=== PATIENT | male | born 1950 | race African-American/Black ===

== ENCOUNTER 2017-07-02 03:46 | Inpatient (IN) | payer MEDICARE, MEDICAID ==
[2017-07-02] VITALS (8 sets, daily range): BP systolic 169–198; BP diastolic 82–102; PULSE 81–117; RESP 16–20; TEMP 98.4–99.3; O2SAT 96–98
[~2017-07-02] VITALS: Ht 188 cm; Wt 112.7 kg
[~2017-07-02 03:46] MED LIST: FOLI1TAB6 PO; METO-309 PO; NIFE30TA8 PO; THERM PO; THIA100 PO; WALKER WHEELS/F1 MIS
[2017-07-02] MEDS ORDERED: LORazepam 2 MG/ML VIAL IVS ONE (04:00)
[2017-07-02] MEDS ORDERED: SODIUM CHLORIDE 0.9% FLUSH 10 ML FLUSH IVF PRN (04:00)
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
[2017-07-02 04:18] LABS: AUTOMATED NEUTROPHIL # 8.3 TH/MM3 (1.8-7.7); BASOPHIL # 0.1 TH/MM3 (0-0.2); BASOPHIL % 1.1 % (0.0-2.0); EOSINOPHIL # 0.7 TH/MM3 (0-0.4); HEMATOCRIT 36.7 % (39.0-51.0); HEMOGLOBIN 12.5 GM/DL (13.0-17.0); LYMPH % 27.3 % (9.0-44.0); LYMPHOCYTE # 3.6 TH/MM3 (1.0-4.8); MEAN CELL VOLUME 85.3 FL (80.0-100.0); MONO % 2.7 % (0.0-8.0); MONOCYTE # 0.4 TH/MM3 (0-0.9); NEUT % 63.9 % (16.0-70.0); PLATELET COUNT 308 TH/MM3 (150-450); RED CELL DISTRIBUTION WIDTH 14.7 % (11.6-17.2)
[2017-07-02 04:35] LABS: ALBUMIN 3.2 GM/DL (3.4-5.0); ALT (GPT) 36 U/L (12-78); AST (GOT) 33 U/L (15-37); BICARBONATE 25.6 MEQ/L (21.0-32.0); BLOOD UREA NITROGEN 18 MG/DL (7-18); CALCIUM 8.7 MG/DL (8.5-10.1); CHLORIDE 101 MEQ/L (98-107); CREATININE 1.69 MG/DL (0.60-1.30); GLOMERULAR FILTRATION RATE 49 ML/MIN (>89); GLUCOSE,RANDOM 87 MG/DL (74-106); SODIUM (NA) 135 MEQ/L (136-145)
[2017-07-02 04:37] LABS: ALKALINE PHOSPHATASE 99 U/L (45-117); TOTAL BILIRUBIN ADULT 0.4 MG/DL (0.2-1.0); TOTAL PROTEIN 8.4 GM/DL (6.4-8.2)
--- NOTE | 2017-07-02 05:04 | RADRPT ---
EXAM DATE/TIME: 07/02/2017 04:34 [facility] COMPARISON: No previous studies available for comparison. INDICATIONS : Altered mental status. RADIATION DOSE: 45.92 CTDIvol (mGy) MEDICAL HISTORY : Hypertension. Chronic obstructive pulmonary disease. Cardiovascular disease SURGICAL HISTORY : Hernia repair ENCOUNTER: Initial ACUITY: 1 day PAIN SCALE: Non-responsive LOCATION: cranial TECHNIQUE: Multiple contiguous axial images were obtained of the head. Using automated exposure control and adj ustment of the mA and/or kV according to patient size, radiation dose was kept as low as reasonably a chievable to obtain optimal diagnostic quality images. DICOM format image data is available electro nically for review and comparison. FINDINGS: CEREBRUM: The ventricles are normal for age. No evidence of midline shift, mass lesion, hemorrhage or acute in farction. No extra-axial fluid collections are seen. POSTERIOR FOSSA: The cerebellum and brainstem are intact. The 4th ventricle is midline. The cerebellopontine angle i s unremarkable. EXTRACRANIAL: The visualized portion of the orbits is intact. SKULL: The calvaria is intact. No evidence of skull fracture. CONCLUSION: 1. No acute intracranial abnormalities. Natan Mitchell MD on July 02, 2017 at 5:00 Board Certified Radiologist. This report was verified electronically.
[2017-07-02] MEDS ORDERED: LORazepam 2 MG/ML VIAL IV PUSH PRN ×3 (05:15→17:15)
[2017-07-02] MEDS ORDERED: SODIUM CHLORIDE 0.9% FLUSH 10 ML FLUSH IV FLUSH PRN (05:15)
[2017-07-02] MEDS ORDERED: ONDANSETRON HCL 4 MG/2 ML VIAL IVP PRN (05:15)
[2017-07-02] MEDS ORDERED: MAGNESIUM HYDROXIDE SUSP 30 ML CUP PO PRN (05:15)
[2017-07-02] MEDS ORDERED: ACETAMINOPHEN/HYDROcodone 325 MG/5 MG TAB PO PRN (05:15)
[2017-07-02] MEDS ORDERED: LACTULOSE SYRUP 20 GM/30 ML CUP PO PRN (05:15)
[2017-07-02] MEDS ORDERED: SENNOSIDES 8.6 MG TAB PO PRN (05:15)
[2017-07-02] MEDS ORDERED: BISACODYL 10 MG SUPP RECTAL PRN (05:15)
[2017-07-02] MEDS ORDERED: ACETAMINOPHEN 325 MG TAB PO PRN (05:15)
[2017-07-02] MEDS ORDERED: THIAMINE HCL 100 MG TAB PO SCH (09:00)
[2017-07-02] MEDS ORDERED: MULTIVITAMINS/MINERALS THERAPEUTIC TAB PO SCH (09:00)
[2017-07-02] MEDS ORDERED: FOLIC ACID 1 MG TAB PO SCH (09:00)
--- NOTE | 2017-07-02 09:06 | MB ---
cc: ENRIKE CHRISTIAN M.D. DATE OF CONSULTATION 07/02/2017 HISTORY OF PRESENT ILLNESS This is a 66-year-old right-handed man with hypertension and hypercholesterolemia. He tells me fell on Ana. He has not been seen by neurology here, in fact he did come in on Ana with a past medical history of hypertension, COPD, alcohol abuse, tobacco abuse, cocaine abuse. He was found at home, almost passed out twice, poor historian. He has a history of alcohol and crack, although he tells me he may have stopped drinking around . CT of the head was negative. He does not take an aspirin a day. Last evening he had some twitching in the left arm that would not stop. The left arm was constantly twitching according to the ER doctor. He uses a walker. MEDICATIONS 1. Multivitamins. 2. Folic acid. 3. Nifedipine. 4. Lopressor. ALLERGIES No known drug allergies. REVIEW OF SYSTEMS He denied any chest pain, palpitations or headache. He denied any history of diabetes, ME, CABG, stent, angioplasty, atrial fibrillation, Coumadin, renal, hepatic or pulmonary disease, thyroid disease, lupus, ulcer, cancer, seizure, stroke. SOCIAL HISTORY He is not a smoker, occasionally still has a drink, lives by himself. FAMILY HISTORY Negative for cancer, seizure or stroke. Positive for lupus in his sister. PHYSICAL EXAMINATION VITAL SIGNS: Sinus rhythm on EKG. Afebrile, 102-117, 16, 190/93. Blood pressure was as high as 196/100 on his last admission. NECK: There are no carotid bruits. HEART: Regular rhythm. I do not detect a murmur. NEUROLOGIC: The left pupil is slightly larger than the right. The left is about 3.5 mm and the right about 3 mm. He appears to have a left homonymous hemianopsia. Face is symmetric with normal sensation. Tongue is midline. There is no drift. He has normal strength in upper and lower extremities bilaterally. He has some slight ataxia in the left upper extremity. DTRs are absent throughout. Toes are downgoing on the right, equivocal to downgoing on the left. Pinprick appears to be intact throughout. Speech is fluent. He is not aphasic. He is alert and oriented x3. LABORATORY White count 13, although was 17 on Ana. Otherwise CBC is normal. Urine drug screen was negative at . It was not checked now. UA was negative at . Coags were normal. Basic metabolic profile is 1.69, was 1.59 at . GFR is 49. Sodium is 135. LFTs are normal. CPK on was 800. Albumin was normal here. B12 was normal. Folate was normal. TSH was normal on June 04, 2017. Coags were normal then. Blood gas was abnormal in 2005. He had a PO2 of 55. ECHOCARDIOGRAM Echocardiogram was normal on June 05, 2017 with a left atrial size of 3. IMAGING Carotid ultrasound done on that was negative. CAT scan of the brain done today was read as normal. Review of the films: It does look to be normal. I do not see any definite abnormality including the occipital lobes. IMPRESSION It looks like he possibly had a stroke now. He has a left homonymous hemianopsia. There was evidence of jerking of the left arm. He was given 2 mg of Ativan last night. PLAN/RECOMMENDATIONS Will check an EEG and MRI of the brain and MRA of the neck and [place]. Will put him on an aspirin for now. I also put him in for a Holter monitor. MD CHEYANNE Carpio/JOSE /8:26 AM /8:46 AM
[2017-07-02] MEDS: DOCUSATE SODIUM 50 MG/SENNA 8.6 MG TAB PO SCH ×2 (12:41→20:38)
[2017-07-02] MEDS: ASPIRIN EC 325 MG TABEC PO SCH (12:41)
[2017-07-02] MEDS: NIFEdipine 30 MG SUSTAINED RELEASE TAB PO SCH (12:42)
[2017-07-02] MEDS: METOPROLOL TARTRATE 50 MG TAB PO SCH ×2 (12:42→20:38)
[2017-07-02 14:28] LABS: CHOLESTEROL 170 MG/DL (120-200); TRIGLYCERIDES 81 MG/DL (42-150)
[2017-07-02 14:31] LABS: HDL CHOLESTEROL 54.8 MG/DL (40.0-60.0); LDL CHOLESTEROL 99 MG/DL (0-99); TROPONIN I LESS THAN 0.02 NG/ML (0.02-0.05)
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
[2017-07-02] MEDS ORDERED: LORazepam 2 MG TAB PO PRN (17:15)
[2017-07-02] MEDS ORDERED: HALOPERIDOL LACTATE 5 MG/ML AMP IM PRN (17:15)
[2017-07-02] MEDS ORDERED: LORazepam 1 MG TAB PO PRN (17:15)
[2017-07-02] MEDS ORDERED: FLUMAZENIL 0.5 MG/5 ML VIAL IV PUSH PRN (17:15)
[2017-07-02] MEDS ORDERED: ENALAPRILAT 1.25 MG/ML VIAL IV PUSH PRN (18:00)
--- NOTE | 2017-07-02 19:03 | EKG ---
Date Performed: 07/02/2017 Time Performed: 05:17:56 PTAGE: 66 years EKG: SINUS TACHYCARDIA POSSIBLE LEFT ATRIAL ENLARGEMENT Since previous tracing, no significant c hange noted ABNORMAL RHYTHM ECG PREVIOUS TRACING : 06/03/2017 16.54 DOCTOR: Kranhti Roque Interpretating Date/Time 07/02/2017 19:01:26
[2017-07-02] MEDS: SODIUM CHLORIDE 0.9% FLUSH 10 ML FLUSH IV FLUSH SCH ×2 (20:38→20:45)
[2017-07-02] MEDS: SODIUM CHLOR 0.9% 1000 ML INJ 1,000 ML IV SCH (20:40)
[2017-07-02] MEDS: ACETAMINOPHEN/HYDROcodone 325 MG/10 MG TAB PO PRN (21:54)
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
[2017-07-03] VITALS: BP 155/93; PULSE 72; RESP 20; TEMP 97.8; O2SAT 98
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
[2017-07-03 06:42] LABS: AUTOMATED NEUTROPHIL # 6.9 TH/MM3 (1.8-7.7); BASOPHIL # 0.3 TH/MM3 (0-0.2); BASOPHIL % 2.7 % (0.0-2.0); EOSINOPHIL # 0.3 TH/MM3 (0-0.4); EOSINOPHIL % 3.5 % (0.0-4.0); HEMATOCRIT 39.8 % (39.0-51.0); LYMPH % 19.3 % (9.0-44.0); LYMPHOCYTE # 1.8 TH/MM3 (1.0-4.8); MEAN CELL VOLUME 85.6 FL (80.0-100.0); MEAN CORPUSCULAR HGB CONC 32.7 % (32.0-36.0); MEAN PLATELET VOLUME 9.8 FL (7.0-11.0); MONOCYTE # 0.2 TH/MM3 (0-0.9); NEUT % 72.5 % (16.0-70.0); PLATELET COUNT 312 TH/MM3 (150-450); RED BLOOD COUNT 4.65 MIL/MM3 (4.50-5.90); RED CELL DISTRIBUTION WIDTH 13.7 % (11.6-17.2); WHITE BLOOD COUNT 9.5 TH/MM3 (4.0-11.0)
--- NOTE | 2017-07-03 06:42 | MG ---
cc: JENNIE GALICIA MD Lab No: [id number] Date: 07/02/2017 Age: 66 Sex: M Race: DATE OF 1950 HISTORY A 66-year-old with history of left arm twitching. FINDINGS 2-3 Hz delta activity occurring in a generalized fashion, 20-50 microvolts. Some overlying theta activity. Spindle activity suggestive of Stage II sleep. Asymmetric right hemispheric slowing compared to the left. Tiny sharp transients right frontal central region. Limited driving with photic stimulation. The patient has stayed awake during photic. INTERPRETATION Mild asymmetric right hemispheric slowing in sleep state. Clinical correlation. Jennie Galicia MD MG/SSB /9:02 PM /6:34 AM
[2017-07-03 06:54] LABS: CHLORIDE 99 MEQ/L (98-107); SODIUM (NA) 132 MEQ/L (136-145)
[2017-07-03 07:02] LABS: ALBUMIN 3.4 GM/DL (3.4-5.0); BLOOD UREA NITROGEN 17 MG/DL (7-18); CALCIUM 9.1 MG/DL (8.5-10.1); GLUCOSE,RANDOM 87 MG/DL (74-106)
[2017-07-03 07:05] LABS: ALT (GPT) 36 U/L (12-78); AST (GOT) 32 U/L (15-37); GLOMERULAR FILTRATION RATE 61 ML/MIN (>89)
[2017-07-03 07:06] LABS: TOTAL BILIRUBIN ADULT 0.8 MG/DL (0.2-1.0)
[2017-07-03 07:07] LABS: TOTAL PROTEIN 8.9 GM/DL (6.4-8.2)
[2017-07-03 07:08] LABS: ALKALINE PHOSPHATASE 103 U/L (45-117)
[2017-07-03 08:00] VITALS: BP 181/87; PULSE 79; PULSE 81; RESP 20; TEMP 97.4; O2SAT 95
[2017-07-03] MEDS: METOPROLOL TARTRATE 50 MG TAB PO SCH ×2 (08:38→21:37)
[2017-07-03] MEDS: ASPIRIN EC 325 MG TABEC PO SCH (08:38)
[2017-07-03] MEDS: DOCUSATE SODIUM 50 MG/SENNA 8.6 MG TAB PO SCH ×2 (08:38→21:37)
[2017-07-03] MEDS: FOLIC ACID 1 MG TAB PO SCH (08:38)
[2017-07-03] MEDS: THIAMINE HCL 100 MG TAB PO SCH (08:39)
[2017-07-03] MEDS: NIFEdipine 30 MG SUSTAINED RELEASE TAB PO SCH (08:39)
[2017-07-03] MEDS: MULTIVITAMINS/MINERALS THERAPEUTIC TAB PO SCH (08:39)
[2017-07-03] MEDS: SODIUM CHLORIDE 0.9% FLUSH 10 ML FLUSH IV FLUSH SCH ×2 (08:41→21:38)
[2017-07-03] MEDS ORDERED: PNEUMOCOCCAL POLYVALENT INJ 25 MCG/0.5 ML SYR IM ONE (10:00)
[2017-07-03] MEDS ORDERED: INFLUENZA VIRUS VACCINE (QUADRIVALENT) 0.5 ML SYR IM ONE (10:00)
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
[2017-07-03] MEDS: SODIUM CHLOR 0.9% 1000 ML INJ 1,000 ML IV SCH ×2 (11:12→11:38)
[2017-07-03 12:00] VITALS: BP 182/85; PULSE 71; RESP 20; TEMP 97.7; O2SAT 95
--- NOTE | 2017-07-03 13:36 | HHI.PR ---
Subjective Remarks Patient is seen and evaluate for acute neurological symptoms. He appears to have a right parietal occipital stroke. His blood pressure is quite elevated as well and is 181/87. He has significant deficits Objective Vitals Vital Signs Date Time Temp Pulse Resp B/P (MAP) Pulse Ox O2 Delivery O2 Flow Rate FiO2 07/03/17 08:00 97.4 79 20 181/87 (118) 95 Automatic Cuff 07/03/17 00:00 97.8 72 20 155/93 (113) 98 07/02/17 23:00 81 07/02/17 20:00 98.9 88 20 190/98 (128) 97 07/02/17 16:00 99.3 87 20 189/93 (125) 96 I/O 07/02/17 07/02/17 07/02/17 07/03/17 07/03/17 07/03/17 07:00 15:00 23:00 07:00 15:00 23:00 Intake Total 120 ml Output Total 550 ml 450 ml Balance -430 ml -450 ml Intake Oral 120 ml Output Urine Total 550 ml 450 ml # Voids 3 # Bowel Movements 0 0 Result Diagram: 07/03/17 0623 07/03/17 0623 Imaging Last Impressions Brain MRI 07/03/17 0000 Signed Impressions: Service Date/Time: Monday, July 03, 2017 09:57 - CONCLUSION: Periventricular and deep white matter microvascular ischemic demyelinization. Right posterior parietal occipital junction area of molina white matter increase signal intensity flair and T2-weighted imaging with questionable subtle diffusion abnormality raising the possibility of a subtle small area of acute subacute infarction Toro Wu MD Knee X-Ray 07/02/17 0000 Signed Impressions: Service Date/Time: Sunday, July 02, 2017 18:58 - CONCLUSION: No acute fracture or dislocation. Mild degenerative changes involving the patellofemoral and femoral-tibial joints. Nithin Gonzalez MD Head Magnetic Resonance Angiography 07/02/17 0000 Signed Impressions: Service Date/Time: Sunday, July 02, 2017 21:26 - CONCLUSION: 1. Examination severely degraded by motion artifact. Findings as above. MRI brain pending. Natan Mitchell MD Head CT 07/02/17 0000 Signed Impressions: Service Date/Time: Sunday, July 02, 2017 04:34 - CONCLUSION: 1. No acute intracranial abnormalities. Natan Mitchell MD Objective Remarks GENERAL: This is a well-nourished, well-developed patient, in no apparent distress. CARDIOVASCULAR: Regular rate and rhythm without murmurs, gallops, or rubs. RESPIRATORY: Clear to auscultation. Breath sounds equal bilaterally. No wheezes , rales, or rhonchi. GASTROINTESTINAL: Abdomen soft, non-tender, nondistended. Normal active bowel sounds MUSCULOSKELETAL: Extremities without clubbing, cyanosis, or edema. NEURO: With a left upper and lower weakness and hemianopsia Alert & Oriented x4 to person, place, time, situation. Medications and IVs a left homonymous hemianopsia A/P Problem List: (1) New onset seizure ICD Code: R56.9 - Unspecified convulsions Status: Acute Plan: Likely secondary to infarct Continue with rehabilitation measures, risk stratification (2) Acute on chronic kidney failure ICD Code: N17.9 - Acute kidney failure, unspecified; N18.9 - Chronic kidney disease, unspecified Plan: Back to baseline after IV hydration (3) Alcohol abuse ICD Code: F10.10 - Alcohol abuse, uncomplicated Status: Chronic Plan: Patient with history of alcohol abuse. Continue with CIWA protocol (4) Occipital infarction ICD Code: I63.9 - Cerebral infarction, unspecified Plan: Continue with blood pressure control, atorvastatin, echocardiogram and rehabilitation measures Discharge Planning Likely discharge to snf/ lives alone Physician Certification 2 Midnight Certification Type: Admission for Inpatient Services Order for Inpatient Services The services are ordered in accordance with Medicare regulations or non- Medicare payer requirements, as applicable. In the case of services not specified as inpatient-only, they are appropriately provided as inpatient services in accordance with the 2-midnight benchmark. Estimated LOS (days): 3 3 days is the estimated time the patient will need to remain in the hospital, assuming treatment plan goals are met and no additional complications. Post-Hospital Plan: SNF Carmen Valdes MD Jul 03, 2017 13:36
[2017-07-03] MEDS: hydrALAZINE HCL 25 MG TAB PO SCH ×2 (13:48→21:37)
[2017-07-03 15:00] VITALS: PULSE 92
[2017-07-03 16:00] VITALS: BP 137/80; PULSE 87; RESP 20; TEMP 99.1; O2SAT 95
--- NOTE | 2017-07-03 19:03 | HHI.PR ---
Subjective Remarks sr Objective Vital Signs Date Time Temp Pulse Resp B/P (MAP) Pulse Ox O2 Delivery O2 Flow Rate FiO2 07/03/17 15:00 92 07/03/17 12:00 97.7 71 20 182/85 (117) 95 07/03/17 08:00 81 07/03/17 08:00 97.4 79 20 181/87 (118) 95 Automatic Cuff 07/03/17 00:00 97.8 72 20 155/93 (113) 98 07/02/17 23:00 81 07/02/17 20:00 98.9 88 20 190/98 (128) 97 I/O 07/02/17 07/02/17 07/02/17 07/03/17 07/03/17 07/03/17 07:00 15:00 23:00 07:00 15:00 23:00 Intake Total 120 ml Output Total 550 ml 450 ml Balance -430 ml -450 ml Intake Oral 120 ml Output Urine Total 550 ml 450 ml # Voids 3 # Bowel Movements 0 0 Result Diagram: 07/03/17 0623 07/03/17 0623 Objective Remarks left hh positive left drift best is 4+ lue and lle awake alert oriented some occ jerks left leg Assessment and Plan Assessment and Plan imp us neg early this month echo nl eeg r slow mra cow nl ldl 99 trop neg cxr neg one month ago mri r parietooccipital abn on flari small blood component unclear if he had cva one month ago and then went home got better then worse or if this could be tumor son says one month ago had some lue weakness then last 3 weeks saw him qod and was walking around house fine x for lue tremor check mri brain with start keppra 500 bid i dw family Julian Bowen MD Jul 03, 2017 19:03
[2017-07-03 20:00] VITALS: BP 178/96; PULSE 90; RESP 20; TEMP 98.2; O2SAT 96
[2017-07-03] MEDS: ATORVASTATIN 20 MG TAB PO SCH (21:37)
[2017-07-03] MEDS: levETIRAcetam 500 MG TAB PO SCH (21:37)
[2017-07-03] MEDS: ACETAMINOPHEN/HYDROcodone 325 MG/10 MG TAB PO PRN (21:37)
[2017-07-04] VITALS (8 sets, daily range): BP systolic 132–174; BP diastolic 79–97; PULSE 72–93; RESP 16–20; TEMP 96.4–98.5; O2SAT 95–98
[2017-07-04] MEDS: THIAMINE HCL 100 MG TAB PO SCH (09:27)
[2017-07-04] MEDS: DOCUSATE SODIUM 50 MG/SENNA 8.6 MG TAB PO SCH ×2 (09:27→21:26)
[2017-07-04] MEDS: hydrALAZINE HCL 25 MG TAB PO SCH ×2 (09:27→21:27)
[2017-07-04] MEDS: NIFEdipine 30 MG SUSTAINED RELEASE TAB PO SCH (09:27)
[2017-07-04] MEDS: METOPROLOL TARTRATE 50 MG TAB PO SCH ×2 (09:27→21:26)
[2017-07-04] MEDS: ASPIRIN EC 81 MG TABEC PO SCH (09:27)
[2017-07-04] MEDS: levETIRAcetam 500 MG TAB PO SCH ×2 (09:27→21:27)
[2017-07-04] MEDS: FOLIC ACID 1 MG TAB PO SCH (09:27)
[2017-07-04] MEDS: SODIUM CHLORIDE 0.9% FLUSH 10 ML FLUSH IV FLUSH SCH ×2 (09:28→21:28)
[2017-07-04] MEDS: MULTIVITAMINS/MINERALS THERAPEUTIC TAB PO SCH (09:31)
[2017-07-04] MEDS: ACETAMINOPHEN/HYDROcodone 325 MG/10 MG TAB PO PRN ×2 (10:52→17:22)
--- NOTE | 2017-07-04 12:07 | HHI.PR ---
Subjective Remarks Patient seen in f/u for stroke, no new complaints, awaiting repeat MRI No new events on telemetry Discussed with son by telephone Objective Vitals Vital Signs Date Time Temp Pulse Resp B/P (MAP) Pulse Ox O2 Delivery O2 Flow Rate FiO2 07/04/17 08:00 97.3 73 16 168/91 (116) 96 07/04/17 04:00 96.4 79 20 132/82 (99) 97 07/04/17 02:03 93 07/04/17 00:00 97.4 72 20 174/79 (110) 98 07/03/17 20:00 98.2 90 20 178/96 (123) 96 07/03/17 16:00 99.1 87 20 137/80 (99) 95 07/03/17 15:00 92 I/O 07/03/17 07/03/17 07/03/17 07/04/17 07/04/17 07/04/17 06:59 14:59 22:59 06:59 14:59 22:59 Intake Total 550 ml 240 ml Output Total 450 ml 825 ml 600 ml Balance -450 ml -275 ml -360 ml Intake Oral 550 ml 240 ml Output Urine Total 450 ml 825 ml 600 ml # Voids 3 # Bowel Movements 0 0 Result Diagram: 07/03/1762207/03/17622 Objective Remarks GENERAL: This is a well-nourished, well-developed patient, in no apparent distress. CARDIOVASCULAR: Regular rate and rhythm without murmurs, gallops, or rubs. RESPIRATORY: Clear to auscultation. Breath sounds equal bilaterally. No wheezes , rales, or rhonchi. GASTROINTESTINAL: Abdomen soft, non-tender, nondistended. Normal active bowel sounds MUSCULOSKELETAL: Extremities without clubbing, cyanosis, or edema. NEURO: With a left upper and lower weakness and hemianopsia Alert & Oriented x4 to person, place, time, situation. A/P Problem List: (1) New onset seizure ICD Code: R56.9 - Unspecified convulsions Status: Acute Plan: Likely secondary to infarct Continue with rehabilitation measures, risk stratification Keppra added (2) Acute on chronic kidney failure ICD Code: N17.9 - Acute kidney failure, unspecified; N18.9 - Chronic kidney disease, unspecified Plan: Back to baseline after IV hydration (3) Alcohol abuse ICD Code: F10.10 - Alcohol abuse, uncomplicated Status: Chronic Plan: Patient with history of alcohol abuse. Continue with CIWA protocol (4) Occipital infarction ICD Code: I63.9 - Cerebral infarction, unspecified Plan: Continue with blood pressure control, atorvastatin, echocardiogram and rehabilitation measures repeat MRI pending Assessment and Plan discussed with family regarding dc plans for Sunday, Discharge Planning Likely discharge to snf/ lives alone Carmen Valdes MD Jul 04, 2017 12:07
[2017-07-04] MEDS ORDERED: GADODIAMIDE PF 287 MG/ML 20 ML VIAL (for RAD MRI) IVCONTRAST ONE (12:36)
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
[2017-07-04 16:50] LABS: ANA SCREEN NEG (NEG)
--- NOTE | 2017-07-04 17:16 | ECHRPT ---
Indication: CVA/TIA CONCLUSIONS Normal left ventricular size. Mild concentric left ventricular hypertrophy. The left ventricular systolic function is low normal with an estimated ejection fraction of 50%. No definite segmental wall motional abnormalities. Possible false tendon in the left ventricle. Trace mitral valve regurgitation. There is trace tricuspid valve regurgitation. BP: 132 / 82 HR: 79 Rhythm: Sinus MEASUREMENTS (Male / Female) Normal Values Technical Quality:Fair 2D ECHO LV Diastolic Diameter PLAX 4.5 cm 4.2 - 5.9 / 3.9 - 5.3 cm LV Systolic Diameter PLAX 3.3 cm IVS Diastolic Thickness 1.6 cm 0.6 - 1.0 / 0.6 - 0.9 cm LVPW Diastolic Thickness 1.6 cm 0.6 - 1.0 / 0.6 - 0.9 cm LV Relative Wall Thickness 0.7 RV Internal Dim ED PLAX 1.9 cm LVOT Diameter 2.4 cm Aortic Root Diameter 3.5 cm LA Systolic Diameter LX 2.8 cm 3.0 - 4.0 / 2.7 - 3.8 cm DOPPLER AV Peak Velocity 89.9 cm/s AV Peak Gradient 3.2 mmHg AV Mean Gradient 2.0 mmHg AV Velocity Time Integral 15.4 cm LVOT Peak Velocity 66.2 cm/s LVOT Peak Gradient 1.8 mmHg LVOT Velocity Time Integral 11.7 cm LVOT Cardiac Index 1676.5 cm/minm AV Area Cont Eq vti 3.4 cm AV Area Cont Eq pk 3.3 cm Mitral E Point Velocity 50.3 cm/s Mitral A Point Velocity 65.2 cm/s Mitral E to A Ratio 0.8 LV E' Lateral Velocity 6.9 cm/s Mitral E to LV E' Lateral Ratio 7.3 LV E' Septal Velocity 5.2 cm/s Mitral E to LV E' Septal Ratio 9.7 PV Peak Velocity 46.6 cm/s PV Peak Gradient 0.9 mmHg FINDINGS LEFT VENTRICLE Normal left ventricular size. Mild concentric left ventricular hypertrophy. The left ventricular systolic function is low normal with an estimated ejection fraction of 50%. No definite segmental wall motional abnormalities. Possible false tendon in the left ventricle. RIGHT VENTRICLE Normal right ventricular size and systolic function. LEFT ATRIUM The left atrial size is normal. RIGHT ATRIUM The right atrial size is normal. ATRIAL SEPTUM No atrial level shunt is demonstrated by color flow Doppler interrogation. AORTA The aortic root and proximal ascending aorta are normal in size on limited imaging. MITRAL VALVE Trace mitral valve regurgitation. AORTIC VALVE Trileaflet aortic valve. No aortic valve stenosis or regurgitation. TRICUSPID VALVE There is trace tricuspid valve regurgitation. PULMONARY VALVE No pulmonary valve regurgitation or stenosis. VESSELS The inferior vena cava was not well visualized. PERICARDIUM No pericardial effusion. Jacinto Harvey MD (Electronically Signed) Final Date:04 July 2017 17:15
[2017-07-04] MEDS: ATORVASTATIN 20 MG TAB PO SCH (21:26)
[2017-07-05] VITALS (8 sets, daily range): BP systolic 142–168; BP diastolic 72–95; PULSE 66–81; RESP 18–20; TEMP 96.6–97.7; O2SAT 95–97
[2017-07-05] MEDS: ACETAMINOPHEN/HYDROcodone 325 MG/10 MG TAB PO PRN ×3 (00:31→16:37)
[2017-07-05] MEDS: NIFEdipine 30 MG SUSTAINED RELEASE TAB PO SCH (07:59)
[2017-07-05] MEDS: FOLIC ACID 1 MG TAB PO SCH (07:59)
[2017-07-05] MEDS: THIAMINE HCL 100 MG TAB PO SCH (08:00)
[2017-07-05] MEDS: MULTIVITAMINS/MINERALS THERAPEUTIC TAB PO SCH (08:00)
[2017-07-05] MEDS: levETIRAcetam 500 MG TAB PO SCH ×2 (08:00→21:38)
[2017-07-05] MEDS: DOCUSATE SODIUM 50 MG/SENNA 8.6 MG TAB PO SCH ×2 (08:00→21:38)
[2017-07-05] MEDS: METOPROLOL TARTRATE 50 MG TAB PO SCH ×2 (08:00→21:38)
[2017-07-05] MEDS: SODIUM CHLORIDE 0.9% FLUSH 10 ML FLUSH IV FLUSH SCH ×2 (08:01→21:39)
[2017-07-05] MEDS: hydrALAZINE HCL 25 MG TAB PO SCH ×2 (08:01→21:38)
[2017-07-05] MEDS: ASPIRIN EC 81 MG TABEC PO SCH (08:01)
--- NOTE | 2017-07-05 09:27 | HHI.PR ---
Review/Management Diagnosis/Plan: (1) Occipital infarction ICD Codes: I63.9 - Cerebral infarction, unspecified Status: Chronic Plan: chronic stroke repeat mri- suggestive of old infarct probable post-stroke seizure recs keppra aspirin bp/lipid control. exercise no driving/climbing heights f/u with Dr. Patel in 1-2 weeks rehab/snf planning (2) Acute on chronic kidney failure ICD Codes: N17.9 - Acute kidney failure, unspecified; N18.9 - Chronic kidney disease, unspecified Status: Acute (3) KATTY (acute kidney injury) ICD Codes: N17.9 - Acute kidney failure, unspecified Status: Acute (4) HTN (hypertension) ICD Codes: I10 - Essential (primary) hypertension Status: Chronic Subjective Subjective Comments No acute events reported No headache No chest pain No dyspnea Active Medications Current Medications Medications (Trade) Dose Ordered Sig/Blaze Route Start Time Stop Time Status Last Admin (Ativan Inj) 1 mg Q2H PRN IV PUSH 07/02/17 05:15 07/02/17 21:54 (NS Flush) 2 ml UNSCH PRN IV FLUSH 07/02/17 05:15 (NS Flush) 2 ml BID IV FLUSH 07/02/17 09:00 07/05/17 08:01 (Zofran Inj) 4 mg Q6H PRN IVP 07/02/17 05:15 (Tylenol) 650 mg Q6H PRN PO 07/02/17 05:15 ([place] 5-325 Mg) 1 tab Q4H PRN PO 07/02/17 05:15 ([place] 10-325 Mg) 1 tab Q4H PRN PO 07/02/17 05:15 07/05/17 07:57 (Génesis-Colace) 1 tab BID PO 07/02/17 09:00 07/05/17 08:00 (Milk Of Magnesia Liq) 30 ml Q12H PRN PO 07/02/17 05:15 (Senokot) 17.2 mg Q12H PRN PO 07/02/17 05:15 (Lactulose Liq) 30 ml DAILY PRN PO 07/02/17 05:15 (Lopressor) 50 mg Q12HR PO 07/02/17 09:00 07/05/17 08:00 (Procardia Xl) 30 mg DAILY PO 07/02/17 09:00 07/05/17 07:59 (Folate) 1 mg DAILY PO 07/03/17 09:00 07/08/17 08:59 07/05/17 07:59 (Vitamin B1) 100 mg DAILY PO 07/03/17 09:00 07/05/17 08:00 (Theragran M Tab) 1 tab DAILY PO 07/03/17 09:00 07/08/17 08:59 07/05/17 08:00 (Romazicon Inj) 0.2 mg Q1M PRN IV PUSH 07/02/17 17:15 (Ativan) 1 mg Q4H PRN PO 07/02/17 17:15 (Ativan) 2 mg Q2H PRN PO 07/02/17 17:15 (Ativan Inj) 2 mg Q1H PRN IV PUSH 07/02/17 17:15 (Ativan Inj) 2 mg Q15M PRN IV PUSH 07/02/17 17:15 (Haldol Inj) 2 mg Q15M PRN IM 07/02/17 17:15 (Vasotec Inj) 1.25 mg Q8H PRN IV PUSH 07/02/17 18:00 (Apresoline) 25 mg Q12HR PO 07/03/17 13:00 07/05/17 08:01 (Lipitor) 20 mg HS PO 07/03/17 21:00 07/04/17 21:26 (Ecotrin Ec) 81 mg DAILY PO 07/04/17 09:00 07/05/17 08:01 (Keppra) 500 mg BID PO 07/03/17 21:00 07/05/17 08:00 Allergies Allergies Coded Allergies No Known Allergies (Verified Adverse Reaction, Unknown, 07/02/17) Exam I&O / VS Vital Signs Date Time Temp Pulse Resp B/P (MAP) Pulse Ox O2 Delivery O2 Flow Rate FiO2 07/05/17 04:00 96.9 73 20 151/87 (108) 97 07/05/17 00:00 96.7 78 20 157/92 (113) 97 07/04/17 20:00 91 07/04/17 20:00 98.5 86 20 150/85 (106) 95 07/04/17 16:34 75 07/04/17 16:00 98.1 72 18 161/97 (118) 97 07/04/17 12:00 97.1 75 18 160/95 (116) 97 General: Alert and Oriented, No acute distress Eye: EOMI Respiratory: Non-labored respirations Neurologic: Alert, Oriented Psychiatric: Cooperative, Appropriate mood & affect Exam Comments alert, ox 3, follows, articulate but slow speech, left HH, face sym, no drift, lugo to gravity Problem Qualifiers (1) Acute on chronic kidney failure: (2) HTN (hypertension): Qualified Codes: I10 - Essential (primary) hypertension Paul Stevens MD Jul 05, 2017 09:27
[2017-07-05] MEDS ORDERED: ATOR20TA15 PO (11:52)
[2017-07-05] MEDS ORDERED: LEVE500 PO (11:52)
[2017-07-05] MEDS ORDERED: HYDR-3799 PO (11:52)
--- NOTE | 2017-07-05 11:53 | HHI.PR ---
Subjective Remarks Patient seen and evaluated today in follow-up for stroke. Doing much better. Left side appears a bit stronger. Discharge plans discussed with patient and he is agreeable Objective Vitals Vital Signs Date Time Temp Pulse Resp B/P (MAP) Pulse Ox O2 Delivery O2 Flow Rate FiO2 07/05/17 08:00 96.6 66 18 168/90 (116) 96 07/05/17 04:00 96.9 73 20 151/87 (108) 97 07/05/17 00:00 96.7 78 20 157/92 (113) 97 07/04/17 20:00 91 07/04/17 20:00 98.5 86 20 150/85 (106) 95 07/04/17 16:34 75 07/04/17 16:00 98.1 72 18 161/97 (118) 97 07/04/17 12:00 97.1 75 18 160/95 (116) 97 I/O 07/04/17 07/04/17 07/04/17 07/05/17 07/05/17 07/05/17 07:00 15:00 23:00 07:00 15:00 23:00 Intake Total 240 ml 600 ml 240 ml Output Total 600 ml 450 ml Balance -360 ml 150 ml 240 ml Intake Oral 240 ml 600 ml 240 ml Output Urine Total 600 ml 450 ml # Voids 2 4 # Bowel Movements 1 Result Diagram: 07/03/1723 07/03/17 0623 Imaging Last Impressions Neck Magnetic Resonance Angiography 07/04/17 0000 Signed Impressions: Service Date/Time: Tuesday, July 04, 2017 11:26 - CONCLUSION: 1. There is some limitation due to artifact. No definite stenosis within the proximal portions of the internal carotid arteries. Volodymyr Sebastian MD Brain MRI 07/04/17 0000 Signed Impressions: Service Date/Time: Tuesday, July 04, 2017 11:26 - CONCLUSION: 1. Chronic ischemic small vessel vasculopathy. 2. Area of high flair abnormality in the right parietal cortex again seen. No definite acute infarction and no definite enhancement. This is likely an area of old ischemia.. Volodymyr Sebastian MD Knee X-Ray 07/02/17 0000 Signed Impressions: Service Date/Time: Sunday, July 02, 2017 18:58 - CONCLUSION: No acute fracture or dislocation. Mild degenerative changes involving the patellofemoral and femoral-tibial joints. Nithin Gonzalez MD Head Magnetic Resonance Angiography 07/02/17 0000 Signed Impressions: Service Date/Time: Sunday, July 02, 2017 21:26 - CONCLUSION: 1. Examination severely degraded by motion artifact. Findings as above. MRI brain pending. Natan Mitchell MD Head CT 07/02/17 0000 Signed Impressions: Service Date/Time: Sunday, July 02, 2017 04:34 - CONCLUSION: 1. No acute intracranial abnormalities. Natan Mitchell MD Objective Remarks GENERAL: This is a well-nourished, well-developed patient, in no apparent distress. CARDIOVASCULAR: Regular rate and rhythm without murmurs, gallops, or rubs. RESPIRATORY: Clear to auscultation. Breath sounds equal bilaterally. No wheezes , rales, or rhonchi. GASTROINTESTINAL: Abdomen soft, non-tender, nondistended. Normal active bowel sounds MUSCULOSKELETAL: Extremities without clubbing, cyanosis, or edema. NEURO: With a left upper and lower weakness and hemianopsia Alert & Oriented x4 to person, place, time, situation. A/P Problem List: (1) New onset seizure ICD Code: R56.9 - Unspecified convulsions Status: Acute Plan: Likely secondary to infarct Continue with rehabilitation measures, risk stratification Continue Jimmy (2) Occipital infarction ICD Code: I63.9 - Cerebral infarction, unspecified Status: Chronic Plan: Continue with blood pressure control, atorvastatin, echocardiogram and rehabilitation measures repeat MRI pending Assessment and Plan discussed with family regarding dc plans for Sunday, Discharge Planning Likely discharge to snf/ lives alone Carmen Valdes MD Jul 05, 2017 11:52
[2017-07-05] MEDS ORDERED: ECASA81 PO (11:54)
--- NOTE | 2017-07-05 18:30 | RADRPT ---
EXAM DATE/TIME: 07/05/2017 18:01 [facility] COMPARISON: CT BRAIN W/O CONTRAST, July 02, 2017, 4:34. INDICATIONS : Right eye pain. Left pupil non responsiveness. RADIATION DOSE: 66.40 CTDIvol (mGy) MEDICAL HISTORY : Chronic obstructive pulmonary disease. Hypertension. SURGICAL HISTORY : Hernia repair. ENCOUNTER: Initial ACUITY: 1 day PAIN SCALE: 8/10 LOCATION: Right cranial TECHNIQUE: Multiple contiguous axial images were obtained of the head. Using automated exposure control and adj ustment of the mA and/or kV according to patient size, radiation dose was kept as low as reasonably a chievable to obtain optimal diagnostic quality images. DICOM format image data is available electro nically for review and comparison. FINDINGS: Mild cerebral atrophy is noted. Scattered periventricular and subcortical white matter small vessel i schemic changes are noted bilaterally. No acute infarct, acute hemorrhage, midline shift or extra axi al fluid collections are noted. The bone windows are unremarkable. CONCLUSION: 1. Mild cerebral atrophy. 2. Scattered periventricular and subcortical white matter small vessel ischemic changes bilaterally. 3. No acute infarct, acute hemorrhage, mass effect or extra axial fluid collections. Nithin Gonzalez MD on July 05, 2017 at 18:25 Board Certified Radiologist. This report was verified electronically.
[2017-07-05] MEDS ORDERED: IOHEXOL 350 MG/ML 10 ML VIAL (for RAD DIAG) IVCONTRAST ONE (18:42)
--- NOTE | 2017-07-05 19:00 | RADRPT ---
EXAM DATE/TIME: 07/05/2017 18:01 [facility] COMPARISON: No previous studies available for comparison. INDICATIONS : Right eye pain. Left pupil non responsiveness. IV CONTRAST: 95 cc Omnipaque 350 (iohexol) IV ; Cumulative dose for multiple exams. RADIATION DOSE: 42.29 CTDIvol (mGy) ; Combined studies MEDICAL HISTORY : Chronic obstructive pulmonary disease. Hypertension. SURGICAL HISTORY : Hernia repair. ENCOUNTER: Initial ACUITY: 1 day PAIN SCALE: 8/10 LOCATION: Right cranial TECHNIQUE: Volumetric scanning was performed using a multi-row detector CT scanner. The data was post processed with a variety of visualization algorithms including full volume maximum intensity projection, multi -planar sliding thin slab reformation, curved planar reformation, and surface rendering techniques. Using automated exposure control and adjustment of the mA and/or kV according to patient size, radiat ion dose was kept as low as reasonably achievable to obtain optimal diagnostic quality images. DICO M format image data is available electronically for review and comparison. FINDINGS: There is excellent visualization of the major intracranial arteries out to the second-order branch ve ssels. There is no evidence for aneurysm, vessel truncation or stenosis, and no evidence for vascula r malformation. CONCLUSION: No acute disease. Nithin Gonzalez MD on July 05, 2017 at 18:55 Board Certified Radiologist. This report was verified electronically.
--- NOTE | 2017-07-05 19:17 | RADRPT ---
EXAM DATE/TIME: 07/05/2017 18:01 [facility] COMPARISON: No previous studies available for comparison. INDICATIONS : Right eye pain. Left pupil non responsiveness. IV CONTRAST: 95 cc Omnipaque 350 (iohexol) IV ; Cumulative dose for multiple exams. RADIATION DOSE: 42.29 CTDIvol (mGy) ; Combined studies MEDICAL HISTORY : Chronic obstructive pulmonary disease. Hypertension. SURGICAL HISTORY : Hernia repair. ENCOUNTER: Initial ACUITY: 1 day PAIN SCALE: 0/10 LOCATION: neck Elevated flow velocities and ICA/CCA ratios have been found to correlate with increased degrees of vessel stenosis, calculated as percentage of diameter relative to a normal segment of distal ICA/CCA. TECHNIQUE: Volumetric scanning was performed using a multirow detector CT scanner. The data was post processed with a variety of visualization algorithms including full-volume maximum intensity projection, multip lanar sliding thin-slab reformation, curved-planar reformation, and surface-rendering techniques. Us ing automated exposure control and adjustment of the mA and/or kV according to patient size, radiatio n dose was kept as low as reasonably achievable to obtain optimal diagnostic quality images. DICOM f ormat image data is available electronically for review and comparison. FINDINGS: AORTIC ARCH: There is a three-vessel origin of the great vessels from the aorta. No evidence of ostial narrowing. RIGHT CAROTID: The common carotid artery is intact. The carotid bulb has a normal configuration without ulceration o r narrowing. The internal carotid artery lumen is smooth without stenosis. The external carotid alexander ry is intact. LEFT CAROTID: The common carotid artery is intact. The carotid bulb has a normal configuration without ulceration or narrowing. The internal carotid artery lumen is smooth without stenosis. The external carotid ar avery is intact. VERTEBRALS: The vertebral arteries have a symmetric diameter. No stenotic lesions are seen. CONCLUSION: No acute disease. Nithin Gonzalez MD on July 05, 2017 at 19:13 Board Certified Radiologist. This report was verified electronically.
[2017-07-05] MEDS: ATORVASTATIN 20 MG TAB PO SCH (21:38)
[2017-07-06] VITALS: BP 123/78; PULSE 75; RESP 20; TEMP 98; O2SAT 97
[2017-07-06 04:00] VITALS: BP 158/94; PULSE 77; RESP 20; TEMP 97.6; O2SAT 97
[2017-07-06 08:00] VITALS: BP 161/95; PULSE 83; RESP 20; TEMP 97.8; O2SAT 95
--- NOTE | 2017-07-06 09:21 | HHI.PR ---
Review/Management Diagnosis/Plan: (1) Occipital infarction ICD Codes: I63.9 - Cerebral infarction, unspecified Status: Chronic Plan: chronic stroke repeat mri- suggestive of old infarct possible post-stroke seizure recs add plavix. stop aspirin in 6 weeks check keppra level in 1-2 weeks neuro stable no driving/climbing heights f/u with Dr. Patel in 1-2 weeks rehab/snf planning today from neuro (2) Acute on chronic kidney failure ICD Codes: N17.9 - Acute kidney failure, unspecified; N18.9 - Chronic kidney disease, unspecified Status: Acute (3) KATTY (acute kidney injury) ICD Codes: N17.9 - Acute kidney failure, unspecified Status: Acute (4) HTN (hypertension) ICD Codes: I10 - Essential (primary) hypertension Status: Chronic Subjective Subjective Comments xcover episode of vision changes, resolved. repeat cta's negative No headache No chest pain No dyspnea Active Medications Current Medications Medications (Trade) Dose Ordered Sig/Blaze Route Start Time Stop Time Status Last Admin (Ativan Inj) 1 mg Q2H PRN IV PUSH 07/02/17 05:15 07/02/17 21:54 (NS Flush) 2 ml UNSCH PRN IV FLUSH 07/02/17 05:15 (NS Flush) 2 ml BID IV FLUSH 07/02/17 09:00 07/05/17 21:39 (Zofran Inj) 4 mg Q6H PRN IVP 07/02/17 05:15 (Tylenol) 650 mg Q6H PRN PO 07/02/17 05:15 (Mesa 5-325 Mg) 1 tab Q4H PRN PO 07/02/17 05:15 (Mesa 10-325 Mg) 1 tab Q4H PRN PO 07/02/17 05:15 07/05/17 16:37 (Génesis-Colace) 1 tab BID PO 07/02/17 09:00 07/05/17 21:38 (Milk Of Magnesia Liq) 30 ml Q12H PRN PO 07/02/17 05:15 (Senokot) 17.2 mg Q12H PRN PO 07/02/17 05:15 (Lactulose Liq) 30 ml DAILY PRN PO 07/02/17 05:15 (Lopressor) 50 mg Q12HR PO 07/02/17 09:00 2/1/18 21:38 (Procardia Xl) 30 mg DAILY PO 07/02/17 09:00 07/05/17 07:59 (Folate) 1 mg DAILY PO 07/03/17 09:00 07/08/17 08:59 07/05/17 07:59 (Vitamin B1) 100 mg DAILY PO 07/03/17 09:00 07/05/17 08:00 (Theragran M Tab) 1 tab DAILY PO 07/03/17 09:00 07/08/17 08:59 07/05/17 08:00 (Romazicon Inj) 0.2 mg Q1M PRN IV PUSH 07/02/17 17:15 (Ativan) 1 mg Q4H PRN PO 07/02/17 17:15 (Ativan) 2 mg Q2H PRN PO 07/02/17 17:15 (Ativan Inj) 2 mg Q1H PRN IV PUSH 07/02/17 17:15 (Ativan Inj) 2 mg Q15M PRN IV PUSH 07/02/17 17:15 (Haldol Inj) 2 mg Q15M PRN IM 07/02/17 17:15 (Vasotec Inj) 1.25 mg Q8H PRN IV PUSH 07/02/17 18:00 (Apresoline) 25 mg Q12HR PO 07/03/17 13:00 07/05/17 21:38 (Lipitor) 20 mg HS PO 07/03/17 21:00 07/05/17 21:38 (Ecotrin Ec) 81 mg DAILY PO 07/04/17 09:00 07/05/17 08:01 (Keppra) 500 mg BID PO 07/03/17 21:00 07/05/17 21:38 Allergies Allergies Coded Allergies No Known Allergies (Verified Adverse Reaction, Unknown, 07/02/17) Review of Systems All other ROS: ROS reviewed as documented in chart Exam I&O / VS Vital Signs Date Time Temp Pulse Resp B/P (MAP) Pulse Ox O2 Delivery O2 Flow Rate FiO2 07/06/17 04:00 97.6 77 20 158/94 (115) 97 07/06/17 00:00 98.0 75 20 123/78 (93) 97 Manual Cuff/Auscultation 07/05/17 20:00 97.7 76 20 142/72 (95) 95 07/05/17 20:00 78 07/05/17 16:00 97.6 80 18 144/88 (106) 96 07/05/17 15:52 81 07/05/17 12:00 97.0 66 18 160/88 (112) 96 General: Alert and Oriented, No acute distress Eye: EOMI Respiratory: Non-labored respirations Neurologic: Alert, Oriented Psychiatric: Cooperative, Appropriate mood & affect Exam Comments alert, ox 3, follows, articulate but slow speech, left HH, face sym, no drift, lugo to gravity Problem Qualifiers (1) Acute on chronic kidney failure: (2) HTN (hypertension): Qualified Codes: I10 - Essential (primary) hypertension Paul Stevens MD Jul 06, 2017 09:21
[2017-07-06] MEDS ORDERED: CLOPIDOGREL 75 MG TAB PO SCH (09:30)
[2017-07-06] MEDS: SODIUM CHLORIDE 0.9% FLUSH 10 ML FLUSH IV FLUSH SCH (09:49)
[2017-07-06] MEDS: levETIRAcetam 500 MG TAB PO SCH (09:50)
[2017-07-06] MEDS: METOPROLOL TARTRATE 50 MG TAB PO SCH (09:50)
[2017-07-06] MEDS: DOCUSATE SODIUM 50 MG/SENNA 8.6 MG TAB PO SCH (09:50)
[2017-07-06] MEDS: hydrALAZINE HCL 25 MG TAB PO SCH (09:50)
[2017-07-06] MEDS: NIFEdipine 30 MG SUSTAINED RELEASE TAB PO SCH (09:50)
[2017-07-06] MEDS: ASPIRIN EC 81 MG TABEC PO SCH (09:50)
[2017-07-06] MEDS: FOLIC ACID 1 MG TAB PO SCH (09:50)
[2017-07-06] MEDS: THIAMINE HCL 100 MG TAB PO SCH (09:51)
[2017-07-06] MEDS: MULTIVITAMINS/MINERALS THERAPEUTIC TAB PO SCH (09:51)
[2017-07-06] MEDS: ACETAMINOPHEN/HYDROcodone 325 MG/10 MG TAB PO PRN (09:58)
--- NOTE | 2017-07-06 10:50 | HHI.DCPOC ---
Discharge Care Plan Diagnosis: (1) Occipital infarction Goals to Promote Your Health * To prevent worsening of your condition and complications * To maintain your health at the optimal level Directions to Meet Your Goals Take your medications as prescribed Follow your dietary instruction Follow activity as directed Keep your appointments as scheduled Take your immunizations and boosters as scheduled If your symptoms worsen call your PCP, if no PCP go to Urgent Care Center or Emergency Room Smoking is Dangerous to Your Health. Avoid second hand smoke Call the 24-hour hour crisis hotline for domestic abuse at Carmen Valdes MD Jul 06, 2017 10:50
[2017-07-06 10:58] VITALS: RESP 17
--- NOTE | 2017-07-06 11:02 | HHI.DS ---
Discharge Summary Admission Date Jul 03, 2017 at 13:35 Discharge Date: Jul 06, 2017 Admitting Diagnosis New onset seizure (1) New onset seizure ICD Code: R56.9 - Unspecified convulsions Status: Acute (2) Occipital infarction ICD Code: I63.9 - Cerebral infarction, unspecified Status: Chronic Procedures None Brief History - From Admission This is a pleasant 66-year-old male patient with a known medical history of hypertension, COPD, alcohol and tobacco abuse and history of cocaine abuse he presented to the ED with complaints of left upper extremity and lower extremity weakness with associated tremors. Patient states that last evening he developed these symptoms while at rest, states that he's never had this before. Last evening he checked his blood pressure which was severely elevated with systolic in the 200s. It should be noted that patient sustained a fall around and since then has passed out twice. Does admit to weakness in the lower extremities lately. He was admitted to the hospital for syncopal event and at that time presented with rhabdomyolysis, acute kidney injury and hypertension and SIRS with underlying sepsis. Was stabilized and sent home. Patient denies any seizure history or stroke history. Denies any recent illness including fever, chills, cough, abdominal pain, nausea, vomiting, diarrhea or dysuria. Patient lives at home alone, uses a cane for assistive device. Able to perform all ADLs per self. Is alert and oriented to self, situation and place and time. Patient denies any alcohol, tobacco or drug use although after reviewing records patient is a heavy drinker and his story of crack cocaine. CBC/BMP: 07/03/17 0623 07/03/17 0623 Significant Findings Laboratory Tests Test 07/03/17 11:30 Imaging Last Impressions Neck CTA 07/05/17 0000 Signed Impressions: Service Date/Time: July 18:01 - CONCLUSION: No acute disease. Nithin Gonzalez MD Head CTA 07/05/17 0000 Signed Impressions: Service Date/Time: July 18:01 - CONCLUSION: No acute disease. Nithin Gonzalez MD Head CT 07/05/17 0000 Signed Impressions: Service Date/Time: July 18:01 - CONCLUSION: 1. Mild cerebral atrophy. 2. Scattered periventricular and subcortical white matter small vessel ischemic changes bilaterally. 3. No acute infarct, acute hemorrhage, mass effect or extra axial fluid collections. Nithin Gonzalez MD Neck Magnetic Resonance Angiography 07/04/17 0000 Signed Impressions: Service Date/Time: Tuesday, July 04, 2017 11:26 - CONCLUSION: 1. There is some limitation due to artifact. No definite stenosis within the proximal portions of the internal carotid arteries. Volodymyr Sebastian MD Brain MRI 07/04/17 0000 Signed Impressions: Service Date/Time: Tuesday, July 04, 2017 11:26 - CONCLUSION: 1. Chronic ischemic small vessel vasculopathy. 2. Area of high flair abnormality in the right parietal cortex again seen. No definite acute infarction and no definite enhancement. This is likely an area of old ischemia.. Volodymyr Sebastian MD Knee X-Ray 07/02/17 0000 Signed Impressions: Service Date/Time: Sunday, July 02, 2017 18:58 - CONCLUSION: No acute fracture or dislocation. Mild degenerative changes involving the patellofemoral and femoral-tibial joints. Nithin Gonzalez MD Head Magnetic Resonance Angiography 07/02/17 0000 Signed Impressions: Service Date/Time: Sunday, July 02, 2017 21:26 - CONCLUSION: 1. Examination severely degraded by motion artifact. Findings as above. MRI brain pending. Natan Mitchell MD PE at Discharge GENERAL: This is a well-nourished, well-developed patient, in no apparent distress. CARDIOVASCULAR: Regular rate and rhythm without murmurs, gallops, or rubs. RESPIRATORY: Clear to auscultation. Breath sounds equal bilaterally. No wheezes , rales, or rhonchi. GASTROINTESTINAL: Abdomen soft, non-tender, nondistended. Normal active bowel sounds MUSCULOSKELETAL: Extremities without clubbing, cyanosis, or edema. NEURO: With a left upper and lower weakness and hemianopsia Alert & Oriented x4 to person, place, time, situation. Pt update on day of discharge Patient seen today in follow-up for stroke. He has a right eye pain overnight that resolved. Images were unchanged. I did speak with the ophthalmology office and they will follow-up as an outpatient. Patient will continue with current medicines and regimen. Hospital Course Patient is a 66-year-old gentleman with a new onset seizure which was found to be due to stroke. He was seen by neurology. Medications were adjusted and the patient was discharged to rehabilitation to continue with rehabilitation efforts to obtain further independence. Pt Condition on Discharge: Good Discharge Disposition: Discharge Home Discharge Time: > 30 minutes Discharge Instructions DIET: Follow Instructions for: Heart Healthy Diet Activities you can perform: Regular-No Restrictions Follow up Referrals: Neurology - 2 Weeks with Julian Bowen MD Ophthalmology - 07/09/17 with Ines Shields MD 100 pm New Medications: Aspirin DR (Aspirin DR) 81 Mg Tabdr 81 MG PO DAILY for Stroke Prevention, #31 TAB Atorvastatin (Atorvastatin) 20 Mg Tab 20 MG PO HS for Stroke Prevention, #30 TAB Hydralazine HCl (Hydralazine HCl) 25 Mg Tablet 25 MG PO Q12HR for Blood Pressure Management, #60 TAB Levetiracetam (Keppra) 500 Mg Tab 500 MG PO BID for Seizure Control, #31 TAB Continued Medications: Folic Acid (Folic Acid) 1 Mg Tablet 1 MG PO DAILY for Alcohol Detox, #30 MG Metoprolol Tartrate (Lopressor) 50 Mg Tab 50 MG PO Q12HR for Blood Pressure Management, #60 TAB 1 Refill Multiple Vitamins W/ Minerals (Thera M Plus) 1 Tab 1 TAB PO DAILY for Alcohol Detox, #30 TAB Nifedipine ER 24 HR (Nifedipine ER 24 HR) 30 Mg Tab 30 MG PO DAILY for Blood Pressure Management, #30 TAB 1 Refill Thiamine HCl (Gnp Vitamin B-1) 100 Mg Tab 100 MG PO DAILY for Alcohol Detox, #30 TAB Carmen Valdes MD Jul 06, 2017 11:02
--- NOTE | 2017-07-06 14:54 | HM ---
Date Performed: 07/04/2017 Time Performed: 19:27:00 HOOKUP DATE: 07/04/17 07:27:00 PM Wed ANALYSIS START TIME: 07/04/2017 7:32:00 PM ANALYSIS END TIME: 07/05/2017 7:35:59 PM PATIENT AGE: 66 PATIENT HEIGHT: 62 PATIENT WEIGHT: 253 DRUG LIST: ROOM # [id number] PATIENT DIAGNOSIS: NEW ONSET SEIZURE TEST NARRATIVE: The patient's average heart rate was 76 BPM. No episodes of tachycardia wer e noted. No episodes of bradycardia were noted. No pauses exceeding 2.0 seconds were noted. 78 ventricular ectopics, which represented < 1% of the total beat count, were noted. The highest ely tricular ectopic frequency occurred from 07:00 PM to 08:00 PM Wed. During this time 11 VE(s) occurre d. Ventricular ectopics were observed as 76 isolated beat(s) and as 1 couplet(s). No runs were note d. 73 supraventricular ectopics, which represented < 1% of the total beat count, were noted. The highest supraventricular ectopic frequency occurred from 07:00 PM to 08:00 PM Wed. During this time 28 SVE(s) occurred. Multiple episodes of ST depression (defined as -1.0 mm or more) were noted in channel 1. The maximum depression of -1.9 mm occurred at 10:25:16 AM Daph[place]. No episodes of ST depr ession (defined as -1.0 mm or more) were noted in channel 2. No episodes of ST depression (defined a s -1.0 mm or more) were noted in channel 3. TEST INTERPRETATION: Patient is in Sinus rhythm throughout the recording with an average heart rate of 76, minimum heart rate is 57, and a peaked he art rate of 104 bpm. There are 76 isolated ventricular premature beats including one ventricular cou plet. There are 69 atrial premature beats without any runs of supraventricular tachycardia. There a re no pauses noted. There was no diary. Conclusions: Unremarkable holter monitor recording. Signed by : Seth Gibbs
== END 2017-07-06 16:13 | DRG 57 ==
LOC: NEPE 03:46 → NEDA 05:18 → NEDH 11:21 → PH3A 15:54 → OBSVTOIN 07-03 13:35
PROVIDERS: ADMIT Hospitalist; ATTEND Hospitalist
DX: I69.398 Other sequelae of cerebral infarction (principal); N17.9 Acute kidney failure, unspecified; M62.82 Rhabdomyolysis; I69.354 Hemiplegia and hemiparesis following cerebral infarction affecting left non-dominant side; H53.462 Homonymous bilateral field defects, left side; R56.9 Unspecified convulsions; J44.9 Chronic obstructive pulmonary disease, unspecified; E86.0 Dehydration; I12.9 Hypertensive chronic kidney disease with stage 1 through stage 4 chronic kidney disease, or unspecified chronic kidney disease; N18.9 Chronic kidney disease, unspecified; E78.5 Hyperlipidemia, unspecified; F10.10 Alcohol abuse, uncomplicated; R29.6 Repeated falls; Z87.891 Personal history of nicotine dependence
CPT/HCPCS: 70450; 70496; 70498; 70544; 70548; 70551; 70553; 73560; 80053; 80061; 80307; 84425; 84484; 85025; 85652; 86038; 86592; 93005; 93225; 93226; 93306; 95819; A9579; G8987-GP; G8988-GP; G8996-GN; G8997-GN; G8998-GN; J2060; J7030; Q9967

== ENCOUNTER 2017-07-11 16:29 | Inpatient (IN) | payer MEDICARE, MEDICAID, OTHER ==
[~2017-07-11] VITALS: Ht 185.4 cm; Wt 105.9 kg
[~2017-07-11 16:29] MED LIST changes: +ATOR20TA15 PO; +ECASA81 PO; +HYDR-3799 PO; +LEVE500 PO
[2017-07-11 16:53] VITALS: BP 141/89; PULSE 108; RESP 17; TEMP 98; O2SAT 97
--- NOTE | 2017-07-11 17:55 | PD ---
HPI Chief Complaint: Psychiatric Symptoms Time Seen by Provider: 17:20 Travel History International Travel<30 days: No Contact w/Intl Traveler<30days: No Traveled to known affect area: No History of Present Illness HPI 66-year-old male presents to the emergency department from [facility] under Coelho act. According to the involuntary certificate of initiating Coelho act "the patient is unpredictable and exhibits poor impulse control. He has been having active auditory hallucinations, hearing babies crying and believes them to be . The patient has been threatening to hurt the nursing staff at the [facility]. Despite attempts to manage him here he is still unmanageable." Patient has history of psychosis and EtOH induced persisting dementia. Patient denies having any hallucinations. He denies homicidal or suicidal ideations. He says he "might pinch himself." He says he would like a beer but hasn't drank alcohol in a very long time. Denies allergies. Cyst primary care provider is Dr. Colunga. History of dementia, hypertension, COPD, emphysema, per the patient. Has no emergent medical complaints. Denies pain at this time. No other modifying factors or associated signs and symptoms. PFSH Past Medical History Arthritis: No Asthma: No Autoimmune Disease: No Blood Disorders: No Heart Rhythm Problems: No Cancer: No Cardiovascular Problems: Yes (ELECTRICAL SHOCK IN 2005 BY POWER LINE) High Cholesterol: No Chemotherapy: No Chest Pain: No Congestive Heart Failure: No COPD: Yes Cerebrovascular Accident: No Dementia: Yes Diabetes: No Diminished Hearing: No Endocrine: No Gastrointestinal Disorders: No GERD: No Glaucoma: No Genitourinary: No Headaches: No Hepatitis: No Hiatal Hernia: No Hypertension: Yes Immune Disorder: No Kidney Stones: No Musculoskeletal: No Neurologic: Yes Psychiatric: No Reproductive: No Respiratory: Yes Migraines: No Myocardial Infarction: No Radiation Therapy: No Renal Failure: No Seizures: No Sickle Cell Disease: No Sleep Apnea: No Thyroid Disease: No Ulcer: No ?: Not Past Surgical History Abdominal Surgery: Yes (HERNIA REPAIR) AICD: No Appendectomy: No Arteriovenous Shunt: No Cardiac Surgery: No Cholecystectomy: No Ear Surgery: No Endocrine Surgery: No Eye Surgery: No Genitourinary Surgery: No Gynecologic Surgery: No Insulin Pump: No Joint Replacement: No Neurologic Surgery: No Oral Surgery: No Pacemaker: No Thoracic Surgery: No Other Surgery: Yes (HERNIA) Social History Alcohol Use: No Tobacco Use: No Substance Use: Yes Allergies-Medications (Allergen,Severity, Reaction): Coded Allergies: No Known Allergies (Verified Adverse Reaction, Unknown, 07/11/17) Reported Meds & Prescriptions Reported Meds & Active Scripts Active Aspirin DR (Aspirin) 81 Mg Tabdr 81 Mg PO DAILY Keppra (Levetiracetam) 500 Mg Tab 500 Mg PO BID Hydralazine HCl 25 Mg Tablet 25 Mg PO Q12HR Atorvastatin (Atorvastatin Calcium) 20 Mg Tab 20 Mg PO HS Thera M Plus (Multivitamins/Minerals Therapeutic) 1 Tab 1 Tab PO DAILY Gnp Vitamin B-1 (Thiamine HCl) 100 Mg Tab 100 Mg PO DAILY Folic Acid 1 Mg Tablet 1 Mg PO DAILY Nifedipine ER 24 HR (Nifedipine) 30 Mg Tab 30 Mg PO DAILY Lopressor (Metoprolol Tartrate) 50 Mg Tab 50 Mg PO Q12HR Reported Risperdal (Risperidone) 0.5 Mg Tab 1 Mg PO HS Risperdal (Risperidone) 0.5 Mg Tab 0.5 Mg PO DAILY Ativan (Lorazepam) 0.5 Mg Tab 0.5 Mg PO Q4H PRN 14 Days Tylenol (Acetaminophen) 325 Mg Tab 650 Mg PO Q4H PRN Review of Systems Except as stated in HPI: all other systems reviewed are Neg Physical Exam Narrative GENERAL: Well-nourished, well-developed black male patient, in no acute distress SKIN: Warm and dry. HEAD: Atraumatic. Normocephalic. EYES: Pupils equal and round. ENT: Mucosa pink and moist. NECK: Supple. Trachea midline. CARDIOVASCULAR: Regular rate and rhythm. No murmur appreciated. RESPIRATORY: No accessory muscle use. Clear to auscultation. Breath sounds equal bilaterally. GASTROINTESTINAL: Abdomen soft, non-tender, nondistended. Hepatic and splenic margins not palpable. Bowel sounds are active 4 quadrants. MUSCULOSKELETAL: No obvious deformities. No clubbing. No cyanosis. No edema. NEUROLOGICAL: Awake and alert. Oriented 3. No obvious cranial nerve deficits. Motor grossly within normal limits. Normal speech. Moves all extremities. 5/5 strength to all extremities. PSYCHIATRIC: No delusional thought processes. No hallucinations. Data Data Last Documented VS Vital Signs Date Time Temp Pulse Resp B/P (MAP) Pulse Ox O2 Delivery O2 Flow Rate FiO2 07/11/17 16:53 98.0 108 17 141/89 (106) 97 Orders Orders Complete Blood Count With Diff (07/11/17 17:21) Comprehensive Metabolic Panel (07/11/17 17:21) Psych Screen (07/11/17 17:21) Drug Screen, Random Urine (07/11/17 17:21) Alcohol (Ethanol) (07/11/17 17:21) Salicylates (Aspirin) (07/11/17 17:21) Tylenol (Acetaminophen) (07/11/17 17:21) Urinalysis - C+S If Indicated (07/11/17 17:55) Restraints Violent (07/11/17 17:56) Labs Laboratory Tests Test 07/11/17 17:44 White Blood Count 13.7 TH/MM3 Red Blood Count 4.48 MIL/MM3 Hemoglobin 12.9 GM/DL Hematocrit 38.8 % Mean Corpuscular Volume 86.6 FL Mean Corpuscular Hemoglobin 28.8 PG Mean Corpuscular Hemoglobin Concent 33.2 % Red Cell Distribution Width 14.2 % Platelet Count 303 TH/MM3 Mean Platelet Volume 10.7 FL Neutrophils (%) (Auto) 77.9 % Lymphocytes (%) (Auto) 16.6 % Monocytes (%) (Auto) 2.4 % Eosinophils (%) (Auto) 2.2 % Basophils (%) (Auto) 0.9 % Neutrophils # (Auto) 10.7 TH/MM3 Lymphocytes # (Auto) 2.3 TH/MM3 Monocytes # (Auto) 0.3 TH/MM3 Eosinophils # (Auto) 0.3 TH/MM3 Basophils # (Auto) 0.1 TH/MM3 CBC Comment DIFF FINAL Differential Comment MDM Medical Decision Making Medical Screen Exam Complete: Yes Emergency Medical Condition: Yes Medical Record Reviewed: Yes Differential Diagnosis Dementia, psychosis, medical clearance for psychiatric evaluation Narrative Course Patient presents under a Coelho act. Physical examination and vital signs are essentially unremarkable. Patient has no medical complaints to report. Psych screen has been ordered. If the laboratory results are unremarkable, the patient will be medically cleared for psychiatric evaluation and disposition. Diagnosis Primary Impression: Medical clearance for psychiatric admission Condition: Stable Rosibel Kelly Jul 11, 2017 17:54
[2017-07-11] MEDS ORDERED: RISP0.5T25 PO ×2 (18:08)
[2017-07-11] MEDS ORDERED: TYLE325T PO (18:08)
[2017-07-11] MEDS ORDERED: LORA-392 PO (18:08)
[2017-07-11 18:10] LABS: AUTOMATED NEUTROPHIL # 10.7 TH/MM3 (1.8-7.7); BASOPHIL # 0.1 TH/MM3 (0-0.2); BASOPHIL % 0.9 % (0.0-2.0); EOSINOPHIL # 0.3 TH/MM3 (0-0.4); EOSINOPHIL % 2.2 % (0.0-4.0); HEMATOCRIT 38.8 % (39.0-51.0); HEMOGLOBIN 12.9 GM/DL (13.0-17.0); LYMPH % 16.6 % (9.0-44.0); LYMPHOCYTE # 2.3 TH/MM3 (1.0-4.8); MEAN CELL VOLUME 86.6 FL (80.0-100.0); MEAN CORPUSCULAR HEMOGLOBIN 28.8 PG (27.0-34.0); MEAN CORPUSCULAR HGB CONC 33.2 % (32.0-36.0); MEAN PLATELET VOLUME 10.7 FL (7.0-11.0); MONO % 2.4 % (0.0-8.0); MONOCYTE # 0.3 TH/MM3 (0-0.9); NEUT % 77.9 % (16.0-70.0); PLATELET COUNT 303 TH/MM3 (150-450); RED BLOOD COUNT 4.48 MIL/MM3 (4.50-5.90); RED CELL DISTRIBUTION WIDTH 14.2 % (11.6-17.2); WHITE BLOOD COUNT 13.7 TH/MM3 (4.0-11.0)
[2017-07-11 18:43] LABS: ALBUMIN 3.8 GM/DL (3.4-5.0); ALKALINE PHOSPHATASE 101 U/L (45-117); ALT (GPT) 34 U/L (12-78); AST (GOT) 31 U/L (15-37); BLOOD UREA NITROGEN 34 MG/DL (7-18); CHLORIDE 99 MEQ/L (98-107); CREATININE 2.37 MG/DL (0.60-1.30); GLOMERULAR FILTRATION RATE 33 ML/MIN (>89); GLUCOSE,RANDOM 92 MG/DL (74-106); SODIUM (NA) 134 MEQ/L (136-145); TOTAL BILIRUBIN ADULT 0.6 MG/DL (0.2-1.0); TOTAL PROTEIN 9.3 GM/DL (6.4-8.2)
[2017-07-11 18:44] LABS: ACETAMINOPHEN LESS THAN 2.0 MCG/ML (10.0-30.0)
[2017-07-11 19:42] LABS: BACTERIA, URINE RARE /hpf; BILIRUBIN, URINE NEG (NEG); BLOOD, URINE NEG (NEG); GLUCOSE,URINE NEG (NEG); KETONE, URINE NEG (NEG); MUCUS URINE FEW /lpf (OCC); NITRITE,URINE NEG (NEG); PH, URINE 5.5 (5.0-8.5); SQUAMOUS EPITHELIAL CELL URINE <1 /hpf (0-5); URINE COLOR YELLOW (YELLW/STRAW); URINE LEUKOCYTE ESTERASE TRACE (NEG)
[2017-07-11 19:44] VITALS: BP 166/99; PULSE 110; RESP 20; TEMP 98.2; O2SAT 95
--- NOTE | 2017-07-11 19:54 | RADRPT ---
EXAM DATE/TIME: 07/11/2017 19:30 [facility] COMPARISON: CHEST SINGLE AP, June 03, 2017, 16:29. INDICATIONS : Cough. MEDICAL HISTORY : Cardiovascular disease. Hypertension. Chronic obstructive pulmonary disease. SURGICAL HISTORY : None. ENCOUNTER: Initial ACUITY: 1 day PAIN SCORE: 0/10 LOCATION: Bilateral chest FINDINGS: A single view of the chest demonstrates the lungs to be symmetrically aerated without evidence of mas s, infiltrate or effusion. Hyperaeration of both lung faustin. The cardiomediastinal contours are unr emarkable. Osseous structures are intact. CONCLUSION: No acute disease. No significant change has occurred. Robert Hitchcock MD on July 11, 2017 at 19:51 Board Certified Radiologist. This report was verified electronically.
[2017-07-11] MEDS ORDERED: SODIUM CHLOR 0.9% 1000 ML INJ 1,000 ML IV ONE (20:00)
--- NOTE | 2017-07-11 20:25 | PD ---
Physical Exam Date Seen by Provider: Jul 11, 2017 Time Seen by Provider: 20:22 Narrative For full history and physical examination please see previous providers note. Data Data Last Documented VS Vital Signs Date Time Temp Pulse Resp B/P (MAP) Pulse Ox O2 Delivery O2 Flow Rate FiO2 07/11/17 19:44 98.2 110 20 166/99 (121) 95 Room Air Orders Orders Complete Blood Count With Diff (07/11/17 17:21) Comprehensive Metabolic Panel (07/11/17 17:21) Psych Screen (07/11/17 17:21) Drug Screen, Random Urine (07/11/17 17:21) Alcohol (Ethanol) (07/11/17 17:21) Salicylates (Aspirin) (07/11/17 17:21) Tylenol (Acetaminophen) (07/11/17 17:21) Urinalysis - C+S If Indicated (07/11/17 17:55) Restraints Violent (07/11/17 17:56) Chest, Single Ap (07/11/17 ) Sodium Chlor 0.9% 1000 Ml Inj (Ns 1000 M (07/11/17 20:00) Creatine Kinase (Cpk) (07/11/17 20:04) Labs Laboratory Tests Test 07/11/17 17:44 White Blood Count 13.7 TH/MM3 Red Blood Count 4.48 MIL/MM3 Hemoglobin 12.9 GM/DL Hematocrit 38.8 % Mean Corpuscular Volume 86.6 FL Mean Corpuscular Hemoglobin 28.8 PG Mean Corpuscular Hemoglobin Concent 33.2 % Red Cell Distribution Width 14.2 % Platelet Count 303 TH/MM3 Mean Platelet Volume 10.7 FL Neutrophils (%) (Auto) 77.9 % Lymphocytes (%) (Auto) 16.6 % Monocytes (%) (Auto) 2.4 % Eosinophils (%) (Auto) 2.2 % Basophils (%) (Auto) 0.9 % Neutrophils # (Auto) 10.7 TH/MM3 Lymphocytes # (Auto) 2.3 TH/MM3 Monocytes # (Auto) 0.3 TH/MM3 Eosinophils # (Auto) 0.3 TH/MM3 Basophils # (Auto) 0.1 TH/MM3 CBC Comment DIFF FINAL Differential Comment Urine Color YELLOW Urine Turbidity CLEAR Urine pH 5.5 Urine Specific [place] 1.022 Urine Protein 100 mg/dL Urine Glucose (UA) NEG mg/dL Urine Ketones NEG mg/dL Urine Occult Blood NEG Urine Nitrite NEG Urine Bilirubin NEG Urine Urobilinogen LESS THAN 2.0 MG/DL Urine Leukocyte Esterase TRACE Urine RBC LESS THAN 1 /hpf Urine WBC 3 /hpf Urine Squamous Epithelial Cells <1 /hpf Urine Bacteria RARE /hpf Urine Mucus FEW /lpf Microscopic Urinalysis Comment CULT NOT INDICATED Blood Urea Nitrogen 34 MG/DL Creatinine 2.37 MG/DL Random Glucose 92 MG/DL Total Protein 9.3 GM/DL Albumin 3.8 GM/DL Calcium Level 9.0 MG/DL Alkaline Phosphatase 101 U/L Aspartate Amino Transf (AST/SGOT) 31 U/L Alanine Aminotransferase (ALT/SGPT) 34 U/L Total Bilirubin 0.6 MG/DL Sodium Level 134 MEQ/L Potassium Level 4.0 MEQ/L Chloride Level 99 MEQ/L Carbon Dioxide Level 26.0 MEQ/L Anion Gap 9 MEQ/L Estimat Glomerular Filtration Rate 33 ML/MIN Total Creatine Kinase 133 U/L Salicylates Level LESS THAN 1.7 MG/DL Urine Opiates Screen NEG Acetaminophen Level LESS THAN 2.0 MCG/ML Urine Barbiturates Screen NEG Urine Amphetamines Screen NEG Urine Benzodiazepines Screen NEG Urine Cocaine Screen NEG Urine Cannabinoids Screen NEG Ethyl Alcohol Level LESS THAN 3 MG/DL MDM Medical Record Reviewed: Yes Supervised Visit with RYAN: No Interpretation(s) Vital Signs Date Time Temp Pulse Resp B/P (MAP) Pulse Ox O2 Delivery O2 Flow Rate FiO2 07/11/17 19:44 98.2 110 20 166/99 (121) 95 Room Air 07/11/17 16:53 98.0 108 17 141/89 (106) 97 Differential Diagnosis Metabolic abnormality versus UTI versus dementia versus other Narrative Course Patient is a 66-year-old male brought into the emergency department under Coelho act for aggressive and threatening behavior at [facility]. Patient was mildly tachycardic on arrival, he was aggressive towards staff and was placed in four-point restraints. Labs and imaging ordered and pending per previous provider. CK added on due to patient's history recently of rhabdomyolysis. Chest x-ray shows no acute disease, CBC with a white count of 13.7 with slight left shift, patient has had no sign of infection, his abdominal exam is benign and he is afebrile. Possibly related to stress response. Chemistry with elevated BUN and creatinine 34/2.37, this has trended up since prior on 07/09/17. Urinalysis is not consistent with a urinary tract infection. Urine drug screen is negative, acetaminophen, alcohol and salicylate levels are all normal. Creatinine kinase is 133. Patient is medically cleared for psychiatric evaluation at this time. Diagnosis Primary Impression: Medical clearance for psychiatric admission Condition: Stable Shari Blackburn Jul 11, 2017 20:25
[2017-07-11 20:48] VITALS: BP 156/88; PULSE 89; RESP 20; TEMP 98; O2SAT 95
[2017-07-11] MEDS ORDERED: MAGNESIUM HYDROXIDE SUSP 30 ML CUP PO PRN (22:00)
[2017-07-11] MEDS ORDERED: ALUMINUM/MAGNESIUM/SIMETH 30 ML CUP PO PRN (22:00)
[2017-07-11] MEDS: METOPROLOL TARTRATE 50 MG TAB PO SCH ×2 (22:30→22:41)
[2017-07-11 22:37] VITALS: BP 161/99; PULSE 87; RESP 16; TEMP 98; O2SAT 97
[2017-07-12] MEDS: FOLIC ACID 1 MG TAB PO SCH (08:50)
[2017-07-12] MEDS: MULTIVITAMINS/MINERALS THERAPEUTIC TAB PO SCH (08:50)
[2017-07-12] MEDS: levETIRAcetam 500 MG TAB PO SCH ×2 (08:50→20:27)
[2017-07-12] MEDS: risperiDONE 0.5 MG TAB PO SCH (08:50)
[2017-07-12] MEDS: THIAMINE HCL 100 MG TAB PO SCH (08:50)
[2017-07-12] MEDS: ASPIRIN 81 MG CHEW TAB PO SCH (08:50)
[2017-07-12] MEDS: hydrOXYzine HCL 50 MG TAB PO PRN (08:51)
[2017-07-12] MEDS: NIFEdipine 30 MG SUSTAINED RELEASE TAB PO SCH (08:54)
[2017-07-12] MEDS ORDERED: PNEUMOCOCCAL POLYVALENT INJ 25 MCG/0.5 ML SYR IM ONE (09:00)
[2017-07-12] MEDS ORDERED: INFLUENZA VIRUS VACCINE (QUADRIVALENT) 0.5 ML SYR IM ONE (09:00)
[2017-07-12] MEDS ORDERED: NICOTINE 21 MG/24 HR PATCH T-DERMAL SCH (09:00)
[2017-07-12] MEDS ORDERED: hydrOXYzine HCL 50 MG TAB PO PRN (09:45)
--- NOTE | 2017-07-12 10:28 | HHI.HP ---
Provisional Diagnosis Admission Date Jul 11, 2017 at 21:45 [place]. 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 Express and informed consent means consent voluntarily given in writing, by a competent person, after sufficient explanation and disclosure of the subject matter involved to enable the person to make a knowing and willful decision without any element of force, fraud, deceit, duress, or other form of constraint or coercion. This person is 18 years of age or older, is not now known to be incompetent to consent to treatment with a guardian advocate, and does not have a health care surrogate or proxy currently making medical treatment decisions. I have found this person to be one of the following: [] Competent to provide express and informed consent, as defined above, for voluntary admission to this facility and is competent to provide express and informed consent for treatment. He/she has the consistent capacity to make well reasoned, willful, and knowing decisions concerning his or her medical or mental health treatment. The person fully and consistently understands the purpose of the admission for examination/placement and is fully capable of personally exercising all rights assured under [place] Incompetent to provide express and informed consent to voluntary admission, and this is incompetent to provide express and informed consent to treatment. The person must be transferred to involuntary status and a petition for a guardian advocate filed with the Circuit Court. [] Refusing to provide express and informed consent to voluntary admission but is competent to provide express and informed consent for treatment. The person must be discharged or transferred to involuntary status. Form shall be completed within 24 hours of a person's arrival at the receiving facility and filed in the clinical record of each person: 1. Admitted on a voluntary basis 2. Permitted to provide express and informed consent to his/her own treatment 3. Allowed to transfer from involuntary to voluntary status 4. Prior to permitting a person to consent to his or her own treatment after having been previously found incompetent to consent to treatment. History of Present Illness Capacity: Lacks Capacity Psych Chief Complaint: patient confused with increased violence at skilled nursing HPI Patient is 66 year-old -[place] male who comes here under Coelho act signed by a Blossom Downs dated 07/11/17 and 1:05 PM that document reviewed and agreed with that is essentially stating the patient unpredictable and exhibits poor impulse control he has been having active auditory hallucinations hearing patient's cry and believes them to be the patient has been threatening to hurt nursing staff at the skilled nursing despite attempts to maintain patient here he is still on manageable the patient is unable to make appropriate decisions for self and is unsafe at this skilled nursing. Patient seen screened in the emergency department urine negative. Patient's EMR reviewed. It appears patient was hospitalized here the end of May 2017 for rhabdomyolysis was discharged then return back here on 07/03/17 with a history of occipital infarct and new onset seizure disorder and discharged back to [facility]. Patient also has a prior history of alcohol abuse patient states his last drink was about 40 days ago. He said he drank mainly beer and that was done daily. He acknowledges a DUI in the past she acknowledges some type of incarceration related perhaps to that DUI. He denies other drug use. At the present time patient sitting quietly in a chair in the day room he is calm with me though there is an underlying irritability vigilance and paranoia with him. He thinks she is at [facility] of the [facility]. He knows he is in [place] that is 2017 that is July but he thinks it's the . He does acknowledge having a stroke recently he states he feels some weakness towards his left side and some visual issues in his right eye. He does denies suicidality at this time. There does acknowledge auditory hallucinations. Staff is also noted that he talks from self appears of conversations with imaginary people. Those of vagueness about any visual perceptual abnormalities. Patient states she's been twice. That he has a daughter. Patient acknowledges alcohol related issues in his family of origin. He denies any physical or sexual abuse. Denies ever being in the . 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 At the present time I feel patient meets criteria for involuntary psychiatric hospitalization of the Coelho act I'll do first opinion request second opinion. Also question as capacity to make decisions concerning his care thus I'll ask for healthcare surrogate and guardian advocate. We'll have hospitalist also consult will us. And have neurology consult with us also along with PT. Patient appears was placed on the Respinol 0.5 mg a.m. and 1 mg at bedtime at [facility] will continue that at the present time. We will attempt to reach patient's family if further information them consult with them related to treatment and placement options Review of Systems Constitutional: DENIES: Diaphoretic episodes, Fatigue, Fever, Weight gain, Weight loss, Chills, Dizziness, Change in appetite, Night Sweats Endocrine: DENIES: Heat/cold intolerance, Polydipsia, Polyuria, Polyphagia Eyes: COMPLAINS OF: Blurred vision Ears, nose, mouth, throat: DENIES: Tinnitus, Hearing loss, Vertigo, Nasal discharge, Oral lesions, Throat pain, Hoarseness, Ear Pain, Running Nose, Epistaxis, Sinus Pain, Toothache, Odynophagia Respiratory: DENIES: Apneas, Cough, Snoring, Wheezing, Hemoptysis, Sputum production, Shortness of breath Cardiovascular: DENIES: Chest pain, Palpitations, Syncope, Dyspnea on Exertion , PND, Lower Extremity Edema, Orthopnea, Claudication Gastrointestinal: DENIES: Abdominal pain, Black stools, Bloody stools, Constipation, Diarrhea, Nausea, Vomiting, Difficulty Swallowing, Anorexia Genitourinary: DENIES: Sexual dysfunction, Urinary frequency, Urinary incontinence, Urgency, Hematuria, Dysuria, Nocturia, Penile Discharge, Testicular Pain, Testicular Swelling Integumentary: DENIES: Abnormal pigmentation, Nail changes, Pruritus, Rash Hematologic/lymphatic: DENIES: Bruising, Lymphadenopathy Immunologic/allergic: DENIES: Eczema, Urticaria Neurologic: COMPLAINS OF: Abnormal gait Psychiatric: COMPLAINS OF: Confusion, Mood changes, Hallucinations, Agitation Past Psych History Psychological trauma history Patient denies Violence risk - others (6 mos) Patient aggressive and hostile at skilled nursing Violence risk - self (6 mos) Vague Substance Abuse History Drugs/Alcohol past 12 months Patient's long history alcohol abuse last drink about 40 days ago Past Family Social History Coded Allergies: No Known Allergies (Verified Adverse Reaction, Unknown, 07/11/17) Active Scripts Aspirin (Aspirin DR) 81 Mg Tabdr, 81 MG PO DAILY for Stroke Prevention, #31 TAB Prov:Carmen Valdes MD 07/05/17 Levetiracetam (Keppra) 500 Mg Tab, 500 MG PO BID for Seizure Control, #31 TAB Prov:Carmen Valdes MD 07/05/17 Hydralazine HCl (Hydralazine HCl) 25 Mg Tablet, 25 MG PO Q12HR for Blood Pressure Management, #60 TAB Prov:Carmen Valdes MD 07/05/17 Atorvastatin (Atorvastatin) 20 Mg Tab, 20 MG PO HS for Stroke Prevention, #30 TAB Prov:Carmen Valdes MD 07/05/17 Multiple Vitamins W/ Minerals (Thera M Plus) 1 Tab, 1 TAB PO DAILY for Alcohol Detox, #30 TAB Prov:Volodymyr Mi MD 06/06/17 Thiamine HCl (Gnp Vitamin B-1) 100 Mg Tab, 100 MG PO DAILY for Alcohol Detox, # 30 TAB Prov:Volodymyr Mi MD 06/06/17 Folic Acid (Folic Acid) 1 Mg Tablet, 1 MG PO DAILY for Alcohol Detox, #30 MG Prov:Volodymyr Mi MD 06/06/17 Nifedipine ER 24 HR (Nifedipine ER 24 HR) 30 Mg Tab, 30 MG PO DAILY for Blood Pressure Management, #30 TAB 1 Refill Prov:Volodymyr Mi MD 06/06/17 Metoprolol Tartrate (Lopressor) 50 Mg Tab, 50 MG PO Q12HR for Blood Pressure Management, #60 TAB 1 Refill Prov:Volodymyr Mi MD 06/06/17 Reported Medications Risperidone (Risperdal) 0.5 Mg Tab, 1 MG PO HS for Psychosis, #30 TAB 0 Refills 07/11/17 Risperidone (Risperdal) 0.5 Mg Tab, 0.5 MG PO DAILY for Psychosis, #30 TAB 0 Refills 07/11/17 Lorazepam (Ativan) 0.5 Mg Tab, 0.5 MG PO Q4H Y for ANXIETY for 14 Days, #84 TAB 0 Refills 07/11/17 Acetaminophen (Tylenol) 325 Mg Tab, 650 MG PO Q4H Y for PAIN/TEMP 100 OR ABOVE, TAB 0 Refills 07/11/17 Current Medications Medications (Trade) Dose Ordered Sig/Lbaze Route Start Time Stop Time Status Last Admin (Atarax) 50 mg Q6H PRN PO 07/11/17 22:00 07/12/17 08:51 (Tylenol) 650 mg Q4H PRN PO 07/11/17 22:00 (Milk Of Magnesia Liq) 30 ml DAILY PRN PO 07/11/17 22:00 (Mag-Al Plus Susp Liq) 30 ml Q6H PRN PO 07/11/17 22:00 (Theragran M Tab) 1 tab DAILY PO 07/12/17 09:00 07/12/17 08:50 (Lipitor) 20 mg HS PO 07/12/17 21:00 (Keppra) 500 mg BID PO 07/12/17 09:00 07/12/17 08:50 (Aspirin Chew) 81 mg DAILY PO 07/12/17 09:00 07/12/17 08:50 (Lopressor) 50 mg Q12HR PO 07/11/17 22:30 07/11/17 22:30 (Procardia Xl) 30 mg DAILY PO 07/12/17 09:00 (Folate) 1 mg DAILY PO 07/12/17 09:00 07/12/17 08:50 (Vitamin B1) 100 mg DAILY PO 07/12/17 09:00 07/12/17 08:50 (risperDAL) 0.5 mg DAILY PO 07/12/17 09:00 07/12/17 08:50 (risperDAL) 1 mg HS PO 07/12/17 21:00 (Benadryl) 50 mg HS PRN PO 07/12/17 09:45 UNV (Atarax) 50 mg Q6H PRN PO 07/12/17 09:45 UNV (Ecotrin Ec) 81 mg DAILY PO 07/13/17 09:00 UNV (Lipitor) 20 mg HS PO 07/12/17 21:00 UNV (Folate) 1 mg DAILY PO 07/13/17 09:00 UNV (Apresoline) 25 mg Q12HR PO 07/12/17 21:00 UNV (Keppra) 500 mg BID PO 07/12/17 21:00 UNV (Lopressor) 50 mg Q12HR PO 07/12/17 21:00 UNV (Theragran M Tab) 1 tab DAILY PO 07/13/17 09:00 UNV (Procardia Xl) 30 mg DAILY PO 07/13/17 09:00 UNV (risperDAL) 0.5 mg DAILY PO 07/13/17 09:00 UNV (risperDAL) 1 mg HS PO 07/12/17 21:00 UNV (Vitamin B1) 100 mg DAILY PO 07/13/17 09:00 UNV Family Psych History Patient states history of alcohol related issues and family Social History Patient states twice appears to have 1 daughter who is active in his care Patient's Strengths (min. 2) Patient verbal labile access healthcare Physical Exam Patient seen screen in ED exam reviewed and agreed with, patient medically cleared. At the present time patient sitting somewhat nervous attitude, he is in no acute distress, is in no respiratory distress, no complaints of abdominal pain. Complains of some vague visual issues and that his glasses are not helping him. Patient moving all 4 extremities both difficult the complains of some slight weakness in his left leg and his left arm Vital Signs Vital Signs Date Time Temp Pulse Resp B/P (MAP) Pulse Ox O2 Delivery O2 Flow Rate FiO2 07/11/17 22:37 98.0 87 16 161/99 (119) 97 07/11/17 20:48 Room Air I/O 07/12/17 07/12/17 07/13/17 08:00 16:00 00:00 Intake Total 240 ml Balance 240 ml Lab Results Test 07/11/17 17:44 White Blood Count 13.7 TH/MM3 Red Blood Count 4.48 MIL/MM3 Hemoglobin 12.9 GM/DL Hematocrit 38.8 % Mean Corpuscular Volume 86.6 FL Mean Corpuscular Hemoglobin 28.8 PG Mean Corpuscular Hemoglobin Concent 33.2 % Red Cell Distribution Width 14.2 % Platelet Count 303 TH/MM3 Mean Platelet Volume 10.7 FL Neutrophils (%) (Auto) 77.9 % Lymphocytes (%) (Auto) 16.6 % Monocytes (%) (Auto) 2.4 % Eosinophils (%) (Auto) 2.2 % Basophils (%) (Auto) 0.9 % Neutrophils # (Auto) 10.7 TH/MM3 Lymphocytes # (Auto) 2.3 TH/MM3 Monocytes # (Auto) 0.3 TH/MM3 Eosinophils # (Auto) 0.3 TH/MM3 Basophils # (Auto) 0.1 TH/MM3 CBC Comment DIFF FINAL Differential Comment Urine Color YELLOW Urine Turbidity CLEAR Urine pH 5.5 Urine Specific [place] 1.022 Urine Protein 100 mg/dL Urine Glucose (UA) NEG mg/dL Urine Ketones NEG mg/dL Urine Occult Blood NEG Urine Nitrite NEG Urine Bilirubin NEG Urine Urobilinogen LESS THAN 2.0 MG/DL Urine Leukocyte Esterase TRACE Urine RBC LESS THAN 1 /hpf Urine WBC 3 /hpf Urine Squamous Epithelial Cells <1 /hpf Urine Bacteria RARE /hpf Urine Mucus FEW /lpf Microscopic Urinalysis Comment CULT NOT INDICATED Blood Urea Nitrogen 34 MG/DL Creatinine 2.37 MG/DL Random Glucose 92 MG/DL Total Protein 9.3 GM/DL Albumin 3.8 GM/DL Calcium Level 9.0 MG/DL Alkaline Phosphatase 101 U/L Aspartate Amino Transf (AST/SGOT) 31 U/L Alanine Aminotransferase (ALT/SGPT) 34 U/L Total Bilirubin 0.6 MG/DL Sodium Level 134 MEQ/L Potassium Level 4.0 MEQ/L Chloride Level 99 MEQ/L Carbon Dioxide Level 26.0 MEQ/L Anion Gap 9 MEQ/L Estimat Glomerular Filtration Rate 33 ML/MIN Total Creatine Kinase 140 U/L Creatine Kinase MB 0.7 NG/ML Salicylates Level LESS THAN 1.7 MG/DL Urine Opiates Screen NEG Acetaminophen Level LESS THAN 2.0 MCG/ML Urine Barbiturates Screen NEG Urine Amphetamines Screen NEG Urine Benzodiazepines Screen NEG Urine Cocaine Screen NEG Urine Cannabinoids Screen NEG Ethyl Alcohol Level LESS THAN 3 MG/DL Mental Status Examination Appearance: Appropriate Consciousness: Alert Orientation: Place (he thinks she is it [facility] in [place]), Date/ Time (July 2017 the ) Motor Activity: Abnormal gait (shuffles somewhat) Speech: Rapid, Hesitant Language: Adequate Fund of Knowledge: Adequate Attention and Concentration: Easily Distracted Memory: Impaired Mood: Irritable Affect: Other (slight increased range and intensity) Thought Process & Associations: Loose associations, Disorganized Thought Content: Bizarre thinking, Hallucinations Hallucination Type: Auditory, Visual (vague) Delusion Type: Paranoid Suicidal Ideation: No Suicidal Plan: No Suicidal Intention: No Homicidal Ideation: No Homicidal Plan: No Homicidal Intention: No Insight: Poor Judgment: Poor Assessment & Plan Problem List: (1) Dementia in other diseases classified elsewhere with behavioral disturbance ICD Codes: F02.81 - Dementia in other diseases classified elsewhere with behavioral disturbance (2) Dementia, vascular, mixed ICD Codes: F01.50 - Vascular dementia without behavioral disturbance (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 I'll do first opinion request second opinion. I feel he does not have capacity thus I'll ask for healthcare surrogate and guardian advocate. Will have hospice consult will less with PT consult will also have neurology consult with us. We'll attempt to reach patient's daughter gain further information and have a family meeting. For now we'll continue monitoring his meds per the med reconciliation which includes Resporal Discharge Planning The need to confirm family related to placement issues Request HC Surrog/Guard Advoc?: Yes Problem Qualifiers (1) Dementia, vascular, mixed: Qualified Codes: F01.51 - Vascular dementia with behavioral disturbance Ruiz Holley MD Jul 12, 2017 10:28
[2017-07-12] MEDS: ACETAMINOPHEN 325 MG TAB PO PRN ×2 (11:10→20:28)
--- NOTE | 2017-07-12 13:58 | PD.PSY.CON ---
Provisional Diagnosis Admission Date Jul 11, 2017 at 21:45 [place]. 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 Holley Reason for Consult Second opinion Primary Care Physician Reese Morelos, DO HPI Patient is 66 year-old -Irish male who comes here under [place] act signed by a Blossom Downs dated 07/11/17 and 1:05 PM that document reviewed and agreed with that is essentially stating the patient unpredictable and exhibits poor impulse control he has been having active auditory hallucinations hearing patient's cry and believes them to be the patient has been threatening to hurt nursing staff at the [place] [facility] despite attempts to maintain patient here he is still on manageable the patient is unable to make appropriate decisions for self and is unsafe at this [place] [facility]. Patient seen screened in the emergency department urine negative. Patient's EMR reviewed. It appears patient was hospitalized here the end of May 2017 for rhabdomyolysis was discharged then return back here on 07/03/17 with a history of occipital infarct and new onset seizure disorder and discharged back to [facility]. Patient also has a prior history of alcohol abuse patient states his last drink was about 40 days ago. He said he drank mainly beer and that was done daily. He acknowledges a DUI in the past she acknowledges some type of incarceration related perhaps to that DUI. He denies other drug use. At the present time patient sitting quietly in a chair in the day room he is calm with me though there is an underlying irritability vigilance and paranoia with him. He thinks she is at [facility] of the [facility]. He knows he is in [place] that is 2017 that is July but he thinks it's the . He does acknowledge having a stroke recently he states he feels some weakness towards his left side and some visual issues in his right eye. He does denies suicidality at this time. There does acknowledge auditory hallucinations. Staff is also noted that he talks from self appears of conversations with imaginary people. Those of vagueness about any visual perceptual abnormalities. Patient states she's been twice. That he has a daughter. Patient acknowledges alcohol related issues in his family of origin. He denies any physical or sexual abuse. Denies ever being in the . 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 At the present time I feel patient meets criteria for involuntary psychiatric hospitalization of the [place] act I'll do first opinion request second opinion. Also question as capacity to make decisions concerning his care thus I'll ask for healthcare surrogate and guardian advocate. We'll have hospitalist also consult will us. And have neurology consult with us also along with PT. Patient appears was placed on the Respinol 0.5 mg a.m. and 1 mg at bedtime at [facility] will continue that at the present time. We will attempt to reach patient's family if further information them consult with them related to treatment and placement options The patient is a 66 years old man, with psychiatric history of dementia, brought to the hospital on the [place] at due to aggressive behavior, poor impulse control, paranoia, and perceptual disturbances. Patient was consulted to me for second opinion. On psychiatric evaluation today the patient is irritable, oppositional, but he is redirectable, able to answer my questions. She is unable to verbalize the reason of his hospitalization. He says that he is very upset because he has been here for 4 weeks. The patient is oriented in person and time, but disoriented in place. He knows was the president. He reports that he has been losing his memory, but he reports good mood, denies suicidal and homicidal ideation, even though he denies visual and auditory hallucinations, patient seems to be internally stimulated, guarded and paranoid. Past Family Social History Coded Allergies: No Known Allergies (Verified Adverse Reaction, Unknown, 07/11/17) Active Scripts Aspirin (Aspirin DR) 81 Mg Tabdr, 81 MG PO DAILY for Stroke Prevention, #31 TAB Prov:Carmen Valdes MD 07/05/17 Levetiracetam (Keppra) 500 Mg Tab, 500 MG PO BID for Seizure Control, #31 TAB Prov:Carmen Valdes MD 07/05/17 Hydralazine HCl (Hydralazine HCl) 25 Mg Tablet, 25 MG PO Q12HR for Blood Pressure Management, #60 TAB Prov:Carmen Valdes MD 07/05/17 Atorvastatin (Atorvastatin) 20 Mg Tab, 20 MG PO HS for Stroke Prevention, #30 TAB Prov:Carmen Valdes MD 07/05/17 Multiple Vitamins W/ Minerals (Thera M Plus) 1 Tab, 1 TAB PO DAILY for Alcohol Detox, #30 TAB Prov:Volodymyr Mi MD 06/06/17 Thiamine HCl (Gnp Vitamin B-1) 100 Mg Tab, 100 MG PO DAILY for Alcohol Detox, # 30 TAB Prov:Volodymyr Mi MD 06/06/17 Folic Acid (Folic Acid) 1 Mg Tablet, 1 MG PO DAILY for Alcohol Detox, #30 MG Prov:Volodymyr Mi MD 06/06/17 Nifedipine ER 24 HR (Nifedipine ER 24 HR) 30 Mg Tab, 30 MG PO DAILY for Blood Pressure Management, #30 TAB 1 Refill Prov:Volodymyr Mi MD 06/06/17 Metoprolol Tartrate (Lopressor) 50 Mg Tab, 50 MG PO Q12HR for Blood Pressure Management, #60 TAB 1 Refill Prov:Volodymyr Mi MD 06/06/17 Reported Medications Risperidone (Risperdal) 0.5 Mg Tab, 1 MG PO HS for Psychosis, #30 TAB 0 Refills 07/11/17 Risperidone (Risperdal) 0.5 Mg Tab, 0.5 MG PO DAILY for Psychosis, #30 TAB 0 Refills 18 Lorazepam (Ativan) 0.5 Mg Tab, 0.5 MG PO Q4H Y for ANXIETY for 14 Days, #84 TAB 0 Refills 07/11/17 Acetaminophen (Tylenol) 325 Mg Tab, 650 MG PO Q4H Y for PAIN/TEMP 100 OR ABOVE, TAB 0 Refills 07/11/17 Current Medications Medications (Trade) Dose Ordered Sig/Blaze Route Start Time Stop Time Status Last Admin (Atarax) 50 mg Q6H PRN PO 07/11/17 22:00 07/12/17 08:51 (Tylenol) 650 mg Q4H PRN PO 07/11/17 22:00 07/12/17 11:10 (Milk Of Magnesia Liq) 30 ml DAILY PRN PO 07/11/17 22:00 (Mag-Al Plus Susp Liq) 30 ml Q6H PRN PO 07/11/17 22:00 (Theragran M Tab) 1 tab DAILY PO 07/12/17 09:00 07/12/17 08:50 (Lipitor) 20 mg HS PO 07/12/17 21:00 (Keppra) 500 mg BID PO 07/12/17 09:00 07/12/17 08:50 (Aspirin Chew) 81 mg DAILY PO 07/12/17 09:00 07/12/17 08:50 (Lopressor) 50 mg Q12HR PO 07/11/17 22:30 07/11/17 22:30 (Procardia Xl) 30 mg DAILY PO 07/12/17 09:00 (Folate) 1 mg DAILY PO 07/12/17 09:00 07/12/17 08:50 (Vitamin B1) 100 mg DAILY PO 07/12/17 09:00 07/12/17 08:50 (risperDAL) 0.5 mg DAILY PO 07/12/17 09:00 07/12/17 08:50 (risperDAL) 1 mg HS PO 07/12/17 21:00 (Benadryl) 50 mg HS PRN PO 07/12/17 21:00 (Apresoline) 25 mg Q12HR PO 07/12/17 21:00 Family Psych History No family psychiatric history Social History He was born in [place] Patient's Strengths (min. 2) Patient verbal labile access healthcare Physical Exam Vital Signs Vital Signs Date Time Temp Pulse Resp B/P (MAP) Pulse Ox O2 Delivery O2 Flow Rate FiO2 07/11/17 22:37 98.0 87 16 161/99 (119) 97 07/11/17 20:48 Room Air I/O 07/12/17 07/12/17 07/13/17 08:00 16:00 00:00 Intake Total 240 ml 120 ml Balance 240 ml 120 ml Lab Results Test 07/11/17 17:44 White Blood Count 13.7 TH/MM3 Red Blood Count 4.48 MIL/MM3 Hemoglobin 12.9 GM/DL Hematocrit 38.8 % Mean Corpuscular Volume 86.6 FL Mean Corpuscular Hemoglobin 28.8 PG Mean Corpuscular Hemoglobin Concent 33.2 % Red Cell Distribution Width 14.2 % Platelet Count 303 TH/MM3 Mean Platelet Volume 10.7 FL Neutrophils (%) (Auto) 77.9 % Lymphocytes (%) (Auto) 16.6 % Monocytes (%) (Auto) 2.4 % Eosinophils (%) (Auto) 2.2 % Basophils (%) (Auto) 0.9 % Neutrophils # (Auto) 10.7 TH/MM3 Lymphocytes # (Auto) 2.3 TH/MM3 Monocytes # (Auto) 0.3 TH/MM3 Eosinophils # (Auto) 0.3 TH/MM3 Basophils # (Auto) 0.1 TH/MM3 CBC Comment DIFF FINAL Differential Comment Urine Color YELLOW Urine Turbidity CLEAR Urine pH 5.5 Urine Specific [place] 1.022 Urine Protein 100 mg/dL Urine Glucose (UA) NEG mg/dL Urine Ketones NEG mg/dL Urine Occult Blood NEG Urine Nitrite NEG Urine Bilirubin NEG Urine Urobilinogen LESS THAN 2.0 MG/DL Urine Leukocyte Esterase TRACE Urine RBC LESS THAN 1 /hpf Urine WBC 3 /hpf Urine Squamous Epithelial Cells <1 /hpf Urine Bacteria RARE /hpf Urine Mucus FEW /lpf Microscopic Urinalysis Comment CULT NOT INDICATED Blood Urea Nitrogen 34 MG/DL Creatinine 2.37 MG/DL Random Glucose 92 MG/DL Total Protein 9.3 GM/DL Albumin 3.8 GM/DL Calcium Level 9.0 MG/DL Alkaline Phosphatase 101 U/L Aspartate Amino Transf (AST/SGOT) 31 U/L Alanine Aminotransferase (ALT/SGPT) 34 U/L Total Bilirubin 0.6 MG/DL Sodium Level 134 MEQ/L Potassium Level 4.0 MEQ/L Chloride Level 99 MEQ/L Carbon Dioxide Level 26.0 MEQ/L Anion Gap 9 MEQ/L Estimat Glomerular Filtration Rate 33 ML/MIN Total Creatine Kinase 140 U/L Creatine Kinase MB 0.7 NG/ML Salicylates Level LESS THAN 1.7 MG/DL Urine Opiates Screen NEG Acetaminophen Level LESS THAN 2.0 MCG/ML Urine Barbiturates Screen NEG Urine Amphetamines Screen NEG Urine Benzodiazepines Screen NEG Urine Cocaine Screen NEG Urine Cannabinoids Screen NEG Ethyl Alcohol Level LESS THAN 3 MG/DL Mental Status Examination Appearance: Appropriate Consciousness: Alert Orientation: Place (he thinks she is it [facility] in [place]), Date/ Time (July 2017 the ) Motor Activity: Abnormal gait (shuffles somewhat) Speech: Rapid, Hesitant Language: Adequate Fund of Knowledge: Adequate Attention and Concentration: Easily Distracted Memory: Impaired Mood: Irritable Affect: Other (slight increased range and intensity) Thought Process & Associations: Loose associations, Disorganized Thought Content: Bizarre thinking, Hallucinations Hallucination Type: Auditory, Visual (vague) Delusion Type: Paranoid Suicidal Ideation: No Suicidal Plan: No Suicidal Intention: No Homicidal Ideation: No Homicidal Plan: No Homicidal Intention: No Insight: Poor Judgment: Poor Assessment & Plan Problem List: (1) Dementia in other diseases classified elsewhere with behavioral disturbance ICD Codes: F02.81 - Dementia in other diseases classified elsewhere with behavioral disturbance Assessment & Plan: I have seen and examined this patient, discussed the case with Dr. Holley, review of documentation, I agree and concur with assessment and plan. 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
[2017-07-12 17:59] VITALS: BP 146/74; PULSE 106; RESP 18; TEMP 97.7
[2017-07-12] MEDS ORDERED: OLANZapine IM 10 MG VIAL IM ONE ×2 (18:49→18:57)
[2017-07-12] MEDS: risperiDONE 1 MG TAB PO SCH (20:27)
[2017-07-12] MEDS: ATORVASTATIN 20 MG TAB PO SCH (20:27)
[2017-07-12] MEDS: METOPROLOL TARTRATE 50 MG TAB PO SCH (20:27)
[2017-07-12] MEDS ORDERED: METOPROLOL TARTRATE 50 MG TAB PO SCH (21:00)
[2017-07-12] MEDS ORDERED: risperiDONE 0.5 MG TAB PO SCH (21:00)
[2017-07-12] MEDS ORDERED: REMOVE OLD NICOTINE PATCH T-DERMAL SCH (21:00)
[2017-07-12] MEDS ORDERED: diphenhydrAMINE HCL 50 MG CAP PO PRN (21:00)
[2017-07-12] MEDS: hydrALAZINE HCL 25 MG TAB PO SCH (21:00)
[2017-07-12] MEDS ORDERED: levETIRAcetam 500 MG TAB PO SCH (21:00)
[2017-07-12] MEDS ORDERED: ATORVASTATIN 20 MG TAB PO SCH (21:00)
[2017-07-13 02:00] VITALS: BP 142/88; PULSE 89; RESP 20; O2SAT 98
[2017-07-13] MEDS: ACETAMINOPHEN 325 MG TAB PO PRN ×2 (02:48→22:33)
[2017-07-13] MEDS: hydrOXYzine HCL 50 MG TAB PO PRN ×2 (03:08→13:40)
[2017-07-13] MEDS ORDERED: THIAMINE HCL 100 MG TAB PO SCH (09:00)
[2017-07-13] MEDS ORDERED: risperiDONE 0.5 MG TAB PO SCH (09:00)
[2017-07-13] MEDS ORDERED: ASPIRIN EC 81 MG TABEC PO SCH (09:00)
[2017-07-13] MEDS ORDERED: FOLIC ACID 1 MG TAB PO SCH (09:00)
[2017-07-13] MEDS ORDERED: NIFEdipine 30 MG SUSTAINED RELEASE TAB PO SCH (09:00)
[2017-07-13] MEDS ORDERED: MULTIVITAMINS/MINERALS THERAPEUTIC TAB PO SCH (09:00)
[2017-07-13] MEDS: THIAMINE HCL 100 MG TAB PO SCH (09:13)
[2017-07-13] MEDS: MULTIVITAMINS/MINERALS THERAPEUTIC TAB PO SCH (09:13)
[2017-07-13] MEDS: ASPIRIN 81 MG CHEW TAB PO SCH (09:13)
[2017-07-13] MEDS: risperiDONE 0.5 MG TAB PO SCH (09:13)
[2017-07-13] MEDS: FOLIC ACID 1 MG TAB PO SCH (09:13)
[2017-07-13] MEDS: levETIRAcetam 500 MG TAB PO SCH ×2 (09:14→22:32)
[2017-07-13] MEDS: METOPROLOL TARTRATE 50 MG TAB PO SCH ×2 (09:15→22:32)
[2017-07-13] MEDS: NIFEdipine 30 MG SUSTAINED RELEASE TAB PO SCH (10:10)
[2017-07-13] MEDS: hydrALAZINE HCL 25 MG TAB PO SCH ×2 (10:10→22:32)
--- NOTE | 2017-07-13 12:15 | HHI.PYPN ---
Subjective Chief Complaint: patient confused with increased violence at [facility] Remarks Patient seen in day room with nurse Roxana and medical student Gurinder, patient alert continues diffusely confused all 4 spheres, did not recognize me from yesterday. Continues irritable somewhat labile and intrusive. Is also somewhat difficult to redirect. For now will discontinue the a.m. dose of Respinol and add Seroquel 25 mg 8 AM 1 PM and 7 PM Review of Systems Except as stated in HPI: all other systems reviewed are Neg Mental Status Examination Appearance: Appropriate Consciousness: Alert Orientation: Place (he thinks she is it [facility] in [place]), Date/ Time (July 2017 the ) Motor Activity: Abnormal gait (shuffles somewhat) Speech: Rapid, Hesitant Language: Adequate Fund of Knowledge: Adequate Attention and Concentration: Easily Distracted Memory: Impaired Mood: Irritable Affect: Other (slight increased range and intensity) Thought Process & Associations: Loose associations, Disorganized Thought Content: Bizarre thinking, Hallucinations Hallucination Type: Auditory, Visual (vague) Delusion Type: Paranoid Suicidal Ideation: No Suicidal Plan: No Suicidal Intention: No Homicidal Ideation: No Homicidal Plan: No Homicidal Intention: No Insight: Poor Judgment: Poor Results Vitals/IOs Vital Signs Date Time Temp Pulse Resp B/P (MAP) Pulse Ox O2 Delivery O2 Flow Rate FiO2 07/13/17 03:57 18 07/13/17 02:00 89 142/88 (106) 98 07/12/17 17:59 97.7 07/11/17 20:48 Room Air Intake and Output 07/13/17 07/13/17 07/14/17 08:00 16:00 00:00 Intake Total 120 ml 0 ml Balance 120 ml 0 ml Assessment & Plan Problem List: (1) Dementia in other diseases classified elsewhere with behavioral disturbance ICD Codes: F02.81 - Dementia in other diseases classified elsewhere with behavioral disturbance (2) Dementia, vascular, mixed ICD Codes: F01.50 - Vascular dementia without behavioral disturbance (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 She medication adjustments above Justification for Cont. Inpt. At this time patient decompensated placed a lower level of care Discharge Planning Placement needs to be determined with further discussion with family Request HC Surrog/Guard Advoc?: Yes Problem Qualifiers (1) Dementia, vascular, mixed: Qualified Codes: F01.51 - Vascular dementia with behavioral disturbance Ruiz Holley MD Jul 13, 2017 12:15
[2017-07-13] MEDS: QUEtiapine FUMARATE 25 MG TAB PO SCH ×2 (13:00→19:00)
--- NOTE | 2017-07-13 13:04 | PD.CONS ---
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 Review of Systems Musculoskeletal: COMPLAINS OF: Back pain Psychiatric: COMPLAINS OF: Anxiety, Confusion, Mood changes, Hallucinations Past Family Social History Allergies: Coded Allergies: No Known Allergies (Verified Adverse Reaction, Unknown, 07/11/17) Past Medical History hypertension copd dementia substance abuse Past Surgical History herniae repair Reported Medications Reported Meds & Active Scripts Active Aspirin DR (Aspirin) 81 Mg Tabdr 81 Mg PO DAILY Keppra (Levetiracetam) 500 Mg Tab 500 Mg PO BID Hydralazine HCl 25 Mg Tablet 25 Mg PO Q12HR Atorvastatin (Atorvastatin Calcium) 20 Mg Tab 20 Mg PO HS Thera M Plus (Multivitamins/Minerals Therapeutic) 1 Tab 1 Tab PO DAILY Gnp Vitamin B-1 (Thiamine HCl) 100 Mg Tab 100 Mg PO DAILY Folic Acid 1 Mg Tablet 1 Mg PO DAILY Nifedipine ER 24 HR (Nifedipine) 30 Mg Tab 30 Mg PO DAILY Lopressor (Metoprolol Tartrate) 50 Mg Tab 50 Mg PO Q12HR Reported Risperdal (Risperidone) 0.5 Mg Tab 1 Mg PO HS Risperdal (Risperidone) 0.5 Mg Tab 0.5 Mg PO DAILY Ativan (Lorazepam) 0.5 Mg Tab 0.5 Mg PO Q4H PRN 14 Days Tylenol (Acetaminophen) 325 Mg Tab 650 Mg PO Q4H PRN Active Ordered Medications Inpatient Medications Acetaminophen (Tylenol) 650 mg Q4H PRN PO Pain 1-5 or Temp >101F Last administered on 07/13/17at 02:48; Start 07/11/17 at 22:00 Al Hydrox/Mg Hydrox/Simethicone (Mag-Al Plus Susp Liq) 30 ml Q6H PRN PO DYSPEPSIA; Start 07/11/17 at 22:00 Aspirin (Aspirin Chew) 81 mg DAILY PO Last administered on 07/13/17at 09:13; Start 07/12/17 at 09:00 Aspirin (Ecotrin Ec) 81 mg DAILY PO ; Start 07/13/17 at 09:00; Stop 07/13/17 at 09 :00; Status DC Atorvastatin Calcium (Lipitor) 20 mg HS PO ; Start 07/12/17 at 21:00; Stop at 21:00; Status DC Diphenhydramine HCl (Benadryl) 50 mg HS PRN PO INSOMNIA; Start 07/12/17 at 21:00 Folic Acid (Folate) 1 mg DAILY PO ; Start 07/13/17 at 09:00; Stop 07/13/17 at 09: 00; Status DC Hydralazine HCl (Apresoline) 25 mg Q12HR PO Last administered on 07/13/17at 10:10 ; Start 07/12/17 at 21:00 Hydroxyzine HCl (Atarax) 50 mg Q6H PRN PO ANXIETY; Start 07/12/17 at 09:45; Stop 07/12/17 at 10:19; Status DC Influenza Virus Vaccine (Flu (Quadrivalent) Vaccine Inj) 0.5 ml ONCE ONCE IM ; Start 07/12/17 at 09:00; Stop 07/12/17 at 09:01; Status DC Levetriacetam (Keppra) 500 mg BID PO ; Start 07/12/17 at 21:00; Stop 07/12/17 at 21:00; Status DC Magnesium Hydroxide (Milk Of Magnesia Liq) 30 ml DAILY PRN PO CONSTIPATION; Start 07/11/17 at 22:00 Metoprolol Tartrate (Lopressor) 50 mg Q12HR PO ; Start 07/12/17 at 21:00; Stop at 21:00; Status DC Miscellaneous Information 1 HS T-DERMAL ; Start 07/12/17 at 21:00; Stop 07/12/17 at 21:00; Status DC Multivitamins/ Minerals Therapeutic (Theragran M Tab) 1 tab DAILY PO ; Start 07/13/17 at 09:00; Stop 07/13/17 at 09:00; Status DC Nicotine (Habitrol 21 Mg Patch.24 Hr) 1 patch DAILY T-DERMAL ; Start 07/12/17 at 09:00; Stop 07/12/17 at 09:00; Status DC Nifedipine (Procardia Xl) 30 mg DAILY PO ; Start 07/13/17 at 09:00; Stop 07/13/17 at 09:00; Status DC Olanzapine (ZyPREXA INJ) 10 mg STAT ONCE IM ; Start 07/12/17 at 18:57; Stop 07/12 at 19:20; Status DC Pneumococcal Polyvalent Vaccine (Pneumovax-23 Inj) 25 mcg ONCE ONCE IM ; Start 07/12/17 at 09:00; Stop 07/12/17 at 09:01; Status DC Quetiapine Fumarate (SEROquel) 25 mg TID@0800,1300,1900 PO ; Start 07/13/17 at 13 :00; Status UNV Risperidone (risperDAL) 1 mg HS PO ; Start 07/12/17 at 21:00; Stop 07/12/17 at 21: 00; Status DC Sodium Chloride 1,000 ml @ 999 mls/hr BOLUS ONCE IV Last administered on at 20:03; Start 07/11/17 at 20:00; Stop 07/11/17 at 21:00; Status DC Thiamine HCl (Vitamin B1) 100 mg DAILY PO ; Start 07/13/17 at 09:00; Stop at 09:00; Status DC Family History unknown Social History non smoker non drinker history of substance abuse Physical Exam Vital Signs Vital Signs Date Time Temp Pulse Resp B/P (MAP) Pulse Ox O2 Delivery O2 Flow Rate FiO2 07/13/17 03:57 18 07/13/17 02:00 89 20 142/88 (106) 98 07/12/17 17:59 97.7 106 18 146/74 (98) Physical Exam GENERAL: This is a well-nourished, well-developed patient, anxious SKIN: No rashes, ecchymoses or lesions. Cool and dry. HEAD: Atraumatic. Normocephalic. No temporal or scalp tenderness. EYES: Pupils equal round and reactive. Extraocular motions intact. No scleral icterus. No injection or drainage. ENT: Nose without bleeding, purulent drainage or septal hematoma. Throat without erythema, tonsillar hypertrophy or exudate. Uvula midline. Airway patent. NECK: Trachea midline. No JVD or lymphadenopathy. Supple, nontender, no meningeal signs. CARDIOVASCULAR: Regular rate and rhythm without murmurs, gallops, or rubs. RESPIRATORY: Clear to auscultation. Breath sounds equal bilaterally. No wheezes , rales, or rhonchi. GASTROINTESTINAL: Abdomen soft, non-tender, nondistended. No hepato-splenomegaly , or palpable masses. No guarding. MUSCULOSKELETAL: Extremities without clubbing, cyanosis, or edema. No joint tenderness, effusion, or edema noted. No calf tenderness. Negative Homans sign bilaterally.pain in lumbar area NEUROLOGICAL: Awake and alert. Cranial nerves II through XII intact. Motor and sensory grossly within normal limits. Five out of 5 muscle strength in all muscle groups. Normal speech.anxious confused hallucinating Laboratory Laboratory Tests Test 07/11/17 17:44 White Blood Count 13.7 TH/MM3 Red Blood Count 4.48 MIL/MM3 Hemoglobin 12.9 GM/DL Hematocrit 38.8 % Mean Corpuscular Volume 86.6 FL Mean Corpuscular Hemoglobin 28.8 PG Mean Corpuscular Hemoglobin Concent 33.2 % Red Cell Distribution Width 14.2 % Platelet Count 303 TH/MM3 Mean Platelet Volume 10.7 FL Neutrophils (%) (Auto) 77.9 % Lymphocytes (%) (Auto) 16.6 % Monocytes (%) (Auto) 2.4 % Eosinophils (%) (Auto) 2.2 % Basophils (%) (Auto) 0.9 % Neutrophils # (Auto) 10.7 TH/MM3 Lymphocytes # (Auto) 2.3 TH/MM3 Monocytes # (Auto) 0.3 TH/MM3 Eosinophils # (Auto) 0.3 TH/MM3 Basophils # (Auto) 0.1 TH/MM3 CBC Comment DIFF FINAL Differential Comment Urine Color YELLOW Urine Turbidity CLEAR Urine pH 5.5 Urine Specific [place] 1.022 Urine Protein 100 mg/dL Urine Glucose (UA) NEG mg/dL Urine Ketones NEG mg/dL Urine Occult Blood NEG Urine Nitrite NEG Urine Bilirubin NEG Urine Urobilinogen LESS THAN 2.0 MG/DL Urine Leukocyte Esterase TRACE Urine RBC LESS THAN 1 /hpf Urine WBC 3 /hpf Urine Squamous Epithelial Cells <1 /hpf Urine Bacteria RARE /hpf Urine Mucus FEW /lpf Microscopic Urinalysis Comment CULT NOT INDICATED Blood Urea Nitrogen 34 MG/DL Creatinine 2.37 MG/DL Random Glucose 92 MG/DL Total Protein 9.3 GM/DL Albumin 3.8 GM/DL Calcium Level 9.0 MG/DL Alkaline Phosphatase 101 U/L Aspartate Amino Transf (AST/SGOT) 31 U/L Alanine Aminotransferase (ALT/SGPT) 34 U/L Total Bilirubin 0.6 MG/DL Sodium Level 134 MEQ/L Potassium Level 4.0 MEQ/L Chloride Level 99 MEQ/L Carbon Dioxide Level 26.0 MEQ/L Anion Gap 9 MEQ/L Estimat Glomerular Filtration Rate 33 ML/MIN Total Creatine Kinase 140 U/L Creatine Kinase MB 0.7 NG/ML Salicylates Level LESS THAN 1.7 MG/DL Urine Opiates Screen NEG Acetaminophen Level LESS THAN 2.0 MCG/ML Urine Barbiturates Screen NEG Urine Amphetamines Screen NEG Urine Benzodiazepines Screen NEG Urine Cocaine Screen NEG Urine Cannabinoids Screen NEG Ethyl Alcohol Level LESS THAN 3 MG/DL Result Diagram: 07/11/17 1744 07/11/17 1744 Imaging Last Impressions Chest X-Ray 07/11/17 0000 Signed Impressions: Service Date/Time: Tuesday, July 11, 2017 19:30 - CONCLUSION: No acute disease. No significant change has occurred. Robert Hitchcock MD Assessment and Plan Problem List: (1) Back pain ICD Codes: M54.9 - Dorsalgia, unspecified (2) HTN (hypertension) ICD Codes: I10 - Essential (primary) hypertension Status: Chronic (3) Dementia in other diseases classified elsewhere with behavioral disturbance ICD Codes: F02.81 - Dementia in other diseases classified elsewhere with behavioral disturbance Assessment and Plan dementia schitzophrenia psych consult Reese Morelos DO Jul 13, 2017 13:04
[2017-07-13] MEDS ORDERED: LORazepam 2 MG/ML VIAL ONE (13:51)
[2017-07-13] MEDS ORDERED: HALOPERIDOL LACTATE 5 MG/ML AMP ONE (13:51)
[2017-07-13] MEDS ORDERED: diphenhydrAMINE HCL 50 MG/ML VIAL ONE (13:51)
[2017-07-13] MEDS ORDERED: HALOPERIDOL LACTATE 5 MG/ML AMP IM STA (14:09)
[2017-07-13] MEDS ORDERED: LORazepam 2 MG/ML VIAL IM STA (14:10)
[2017-07-13] MEDS ORDERED: diphenhydrAMINE HCL 50 MG/ML VIAL IM STA (14:11)
[2017-07-13 16:48] VITALS: BP 196/106; PULSE 95; RESP 16; TEMP 98.6; O2SAT 98
[2017-07-13] MEDS: ATORVASTATIN 20 MG TAB PO SCH (22:32)
[2017-07-13] MEDS: risperiDONE 1 MG TAB PO SCH (22:33)
[2017-07-14 06:45] VITALS: BP 148/88; PULSE 81; RESP 16; TEMP 97.4; O2SAT 96
[2017-07-14 07:55] VITALS: BP 131/86
[2017-07-14] MEDS: FOLIC ACID 1 MG TAB PO SCH (07:58)
[2017-07-14] MEDS: THIAMINE HCL 100 MG TAB PO SCH (07:58)
[2017-07-14] MEDS: NIFEdipine 30 MG SUSTAINED RELEASE TAB PO SCH (07:58)
[2017-07-14] MEDS: MULTIVITAMINS/MINERALS THERAPEUTIC TAB PO SCH (07:59)
[2017-07-14] MEDS: hydrOXYzine HCL 50 MG TAB PO PRN (07:59)
[2017-07-14] MEDS: ASPIRIN 81 MG CHEW TAB PO SCH (07:59)
[2017-07-14] MEDS: QUEtiapine FUMARATE 25 MG TAB PO SCH ×3 (08:00→18:16)
[2017-07-14] MEDS: hydrALAZINE HCL 25 MG TAB PO SCH ×2 (08:00→20:28)
[2017-07-14] MEDS: levETIRAcetam 500 MG TAB PO SCH ×2 (08:00→20:28)
[2017-07-14] MEDS: METOPROLOL TARTRATE 50 MG TAB PO SCH ×2 (08:00→20:28)
--- NOTE | 2017-07-14 15:00 | HHI.PYPN ---
Subjective Chief Complaint: patient confused with increased violence at halfway Remarks Pt seen and discussed with staff. He has been compliant with medications and care today. He received ETO yesterday due to severe aggression. He has been calm with no behavioral problems or aggression today. Mental Status Examination Appearance: Appropriate Consciousness: Alert Orientation: Place (he thinks she is it [facility] in [place]), Date/ Time (July 2017 the ) Motor Activity: Abnormal gait (shuffles somewhat) Speech: Rapid, Hesitant Language: Adequate Fund of Knowledge: Adequate Attention and Concentration: Easily Distracted Memory: Impaired Mood: Irritable Affect: Other (slight increased range and intensity) Thought Process & Associations: Loose associations, Disorganized Thought Content: Bizarre thinking, Hallucinations Hallucination Type: Auditory Delusion Type: Paranoid Suicidal Ideation: No Suicidal Plan: No Suicidal Intention: No Homicidal Ideation: No Homicidal Plan: No Homicidal Intention: No Insight: Poor Judgment: Poor Results Vitals/IOs Vital Signs Date Time Temp Pulse Resp B/P (MAP) Pulse Ox O2 Delivery O2 Flow Rate FiO2 07/14/17 07:55 131/86 (101) 07/14/17 06:45 97.4 81 16 96 07/11/17 20:48 Room Air Intake and Output 07/14/17 07/14/17 07/15/17 08:00 16:00 00:00 Intake Total 0 ml 240 ml Balance 0 ml 240 ml Assessment & Plan Problem List: (1) Dementia in other diseases classified elsewhere with behavioral disturbance ICD Codes: F02.81 - Dementia in other diseases classified elsewhere with behavioral disturbance (2) Dementia, vascular, mixed ICD Codes: F01.50 - Vascular dementia without behavioral disturbance (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 Estimated LOS: days Justification for Cont. Inpt. impairments in safety Request HC Surrog/Guard Advoc?: Yes Problem Qualifiers (1) Dementia, vascular, mixed: Qualified Codes: F01.51 - Vascular dementia with behavioral disturbance Princess York MD Jul 14, 2017 15:00
[2017-07-14 18:25] VITALS: BP 152/88; PULSE 99; RESP 18; TEMP 98.2; O2SAT 98
[2017-07-14] MEDS: risperiDONE 1 MG TAB PO SCH (20:28)
[2017-07-14] MEDS: ATORVASTATIN 20 MG TAB PO SCH (20:28)
[2017-07-14] MEDS: ACETAMINOPHEN 325 MG TAB PO PRN (20:29)
[2017-07-15 06:35] VITALS: BP 160/81; PULSE 75; RESP 18; TEMP 98.7; O2SAT 75
[2017-07-15] MEDS: QUEtiapine FUMARATE 25 MG TAB PO SCH ×3 (08:00→18:11)
[2017-07-15] MEDS: NIFEdipine 30 MG SUSTAINED RELEASE TAB PO SCH (09:05)
[2017-07-15] MEDS: hydrALAZINE HCL 25 MG TAB PO SCH ×2 (09:05→20:34)
[2017-07-15] MEDS: MULTIVITAMINS/MINERALS THERAPEUTIC TAB PO SCH (09:05)
[2017-07-15] MEDS: THIAMINE HCL 100 MG TAB PO SCH (09:05)
[2017-07-15] MEDS: ASPIRIN 81 MG CHEW TAB PO SCH (09:05)
[2017-07-15] MEDS: METOPROLOL TARTRATE 50 MG TAB PO SCH ×2 (09:05→20:34)
[2017-07-15] MEDS: FOLIC ACID 1 MG TAB PO SCH (09:05)
[2017-07-15] MEDS: hydrOXYzine HCL 50 MG TAB PO PRN ×2 (09:07→20:34)
[2017-07-15 09:08] VITALS: BP 147/87; PULSE 98
[2017-07-15] MEDS: levETIRAcetam 500 MG TAB PO SCH ×2 (09:10→20:34)
[2017-07-15] MEDS ORDERED: LORazepam 2 MG/ML VIAL IM ONE (14:45)
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
[2017-07-15] MEDS: ATORVASTATIN 20 MG TAB PO SCH (20:34)
[2017-07-15] MEDS: risperiDONE 1 MG TAB PO SCH (20:34)
[2017-07-16 06:00] VITALS: BP 138/78; PULSE 88; RESP 18; TEMP 98.1; O2SAT 98
[2017-07-16] MEDS: QUEtiapine FUMARATE 25 MG TAB PO SCH ×3 (08:00→18:02)
[2017-07-16] MEDS: METOPROLOL TARTRATE 50 MG TAB PO SCH ×2 (09:28→21:21)
[2017-07-16] MEDS: ASPIRIN 81 MG CHEW TAB PO SCH (09:28)
[2017-07-16] MEDS: MULTIVITAMINS/MINERALS THERAPEUTIC TAB PO SCH (09:28)
[2017-07-16] MEDS: levETIRAcetam 500 MG TAB PO SCH ×2 (09:28→21:21)
[2017-07-16] MEDS: hydrALAZINE HCL 25 MG TAB PO SCH ×2 (09:28→21:21)
[2017-07-16] MEDS: FOLIC ACID 1 MG TAB PO SCH (09:28)
[2017-07-16] MEDS: NIFEdipine 30 MG SUSTAINED RELEASE TAB PO SCH (09:28)
[2017-07-16] MEDS: THIAMINE HCL 100 MG TAB PO SCH (09:28)
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
[2017-07-16 18:27] VITALS: BP 164/84; PULSE 90; RESP 18; TEMP 98.6; O2SAT 97
[2017-07-16] MEDS: risperiDONE 1 MG TAB PO SCH (21:21)
[2017-07-16] MEDS: ATORVASTATIN 20 MG TAB PO SCH (21:21)
[2017-07-17] MEDS: ACETAMINOPHEN 325 MG TAB PO PRN (04:08)
[2017-07-17 06:29] VITALS: BP 160/82; PULSE 75; RESP 16; TEMP 98.4; O2SAT 97
[2017-07-17] MEDS: ASPIRIN 81 MG CHEW TAB PO SCH (09:07)
[2017-07-17] MEDS: FOLIC ACID 1 MG TAB PO SCH (09:07)
[2017-07-17] MEDS: MULTIVITAMINS/MINERALS THERAPEUTIC TAB PO SCH (09:07)
[2017-07-17] MEDS: levETIRAcetam 500 MG TAB PO SCH ×2 (09:08→21:02)
[2017-07-17] MEDS: THIAMINE HCL 100 MG TAB PO SCH (09:08)
[2017-07-17] MEDS: NIFEdipine 30 MG SUSTAINED RELEASE TAB PO SCH (09:08)
[2017-07-17] MEDS: METOPROLOL TARTRATE 50 MG TAB PO SCH ×2 (09:08→21:02)
[2017-07-17] MEDS: hydrALAZINE HCL 25 MG TAB PO SCH ×2 (09:08→21:02)
[2017-07-17] MEDS: QUEtiapine FUMARATE 25 MG TAB PO SCH ×3 (09:09→18:25)
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
--- NOTE | 2017-07-17 16:15 | PD.TTN ---
Patient Problems 1. Discharge planning 2. Medication compliance 3. Knowledge deficit 4. Lack of coping skills Progress Toward Goals Provider Present: Dr. Sintia Holley Provider Input: 07/17/17 patient remains non compliant and is in need for placement , Diagnosis Dementia Psychiatric Counselors Present: Heidy Barlow LCSW Psych Therapist Input: 07/17/17 referrals sent to facilities, notes are not well, patient remains needing ETO, and is constantly aggitated and angry daugther will visit tomorrow and no one in family could be his caregiver, all of them work - will need placement in group home Group Spec/RT/OT/CARLISLE Present: Elida Cobb, GARIMA Group Spec/RT/OT/CARLISLE Input: 07/17/17 patient is visible in the milieu , overall mood is calmer Heidy Barlow LCSW Jul 17, 2017 16:15
[2017-07-17 17:42] VITALS: BP 155/67; PULSE 70; RESP 18; TEMP 98.6; O2SAT 98
[2017-07-17] MEDS: risperiDONE 1 MG TAB PO SCH (21:02)
[2017-07-17] MEDS: ATORVASTATIN 20 MG TAB PO SCH (21:02)
[2017-07-18] MEDS: hydrOXYzine HCL 50 MG TAB PO PRN ×2 (01:21→20:41)
[2017-07-18] MEDS: ACETAMINOPHEN 325 MG TAB PO PRN (01:21)
[2017-07-18 05:59] VITALS: BP 154/72; PULSE 92; RESP 18; TEMP 98.3; O2SAT 97
[2017-07-18 08:42] VITALS: BP 150/87; PULSE 98
[2017-07-18] MEDS: ASPIRIN 81 MG CHEW TAB PO SCH (08:44)
[2017-07-18] MEDS: levETIRAcetam 500 MG TAB PO SCH ×2 (08:44→20:41)
[2017-07-18] MEDS: THIAMINE HCL 100 MG TAB PO SCH (08:44)
[2017-07-18] MEDS: METOPROLOL TARTRATE 50 MG TAB PO SCH ×2 (08:44→20:41)
[2017-07-18] MEDS: MULTIVITAMINS/MINERALS THERAPEUTIC TAB PO SCH (08:44)
[2017-07-18] MEDS: hydrALAZINE HCL 25 MG TAB PO SCH ×2 (08:44→20:41)
[2017-07-18] MEDS: NIFEdipine 30 MG SUSTAINED RELEASE TAB PO SCH (08:44)
[2017-07-18] MEDS: FOLIC ACID 1 MG TAB PO SCH (08:44)
[2017-07-18] MEDS: QUEtiapine FUMARATE 25 MG TAB PO SCH ×3 (08:45→18:30)
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
[2017-07-18] MEDS: risperiDONE 1 MG TAB PO SCH (20:41)
[2017-07-18] MEDS: ATORVASTATIN 20 MG TAB PO SCH (20:41)
[2017-07-19 05:39] VITALS: BP 159/91; PULSE 82; RESP 18; TEMP 98.3; O2SAT 95
[2017-07-19 08:25] VITALS: BP 159/91
[2017-07-19] MEDS: MULTIVITAMINS/MINERALS THERAPEUTIC TAB PO SCH (08:26)
[2017-07-19] MEDS: hydrALAZINE HCL 25 MG TAB PO SCH ×2 (08:26→21:00)
[2017-07-19] MEDS: levETIRAcetam 500 MG TAB PO SCH ×2 (08:26→21:00)
[2017-07-19] MEDS: FOLIC ACID 1 MG TAB PO SCH (08:27)
[2017-07-19] MEDS: ASPIRIN 81 MG CHEW TAB PO SCH (08:27)
[2017-07-19] MEDS: THIAMINE HCL 100 MG TAB PO SCH (08:27)
[2017-07-19] MEDS: METOPROLOL TARTRATE 50 MG TAB PO SCH ×2 (08:27→21:00)
[2017-07-19] MEDS: NIFEdipine 30 MG SUSTAINED RELEASE TAB PO SCH (08:27)
[2017-07-19] MEDS: QUEtiapine FUMARATE 25 MG TAB PO SCH ×3 (08:30→18:09)
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
[2017-07-19 16:00] VITALS: BP 144/88; PULSE 91; RESP 18; TEMP 99.2; O2SAT 95
[2017-07-19] MEDS: ATORVASTATIN 20 MG TAB PO SCH (21:00)
[2017-07-19] MEDS: risperiDONE 1 MG TAB PO SCH (21:00)
[2017-07-20 06:25] VITALS: BP 170/84; PULSE 80; RESP 15; TEMP 98
[2017-07-20] MEDS: QUEtiapine FUMARATE 25 MG TAB PO SCH ×3 (08:00→18:42)
[2017-07-20] MEDS: MULTIVITAMINS/MINERALS THERAPEUTIC TAB PO SCH (08:25)
[2017-07-20] MEDS: THIAMINE HCL 100 MG TAB PO SCH (08:25)
[2017-07-20] MEDS: ASPIRIN 81 MG CHEW TAB PO SCH (08:25)
[2017-07-20] MEDS: METOPROLOL TARTRATE 50 MG TAB PO SCH ×2 (08:25→21:15)
[2017-07-20] MEDS: levETIRAcetam 500 MG TAB PO SCH ×2 (08:25→21:15)
[2017-07-20] MEDS: hydrALAZINE HCL 25 MG TAB PO SCH ×2 (08:25→21:15)
[2017-07-20] MEDS: FOLIC ACID 1 MG TAB PO SCH (08:25)
[2017-07-20] MEDS: NIFEdipine 30 MG SUSTAINED RELEASE TAB PO SCH (08:25)
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
[2017-07-20 16:51] VITALS: BP 144/72; PULSE 84; RESP 16; TEMP 98; O2SAT 96
[2017-07-20] MEDS: risperiDONE 1 MG TAB PO SCH (21:15)
[2017-07-20] MEDS: ATORVASTATIN 20 MG TAB PO SCH (21:15)
[2017-07-21 06:00] VITALS: BP 149/74; PULSE 91; RESP 16; TEMP 97.7; O2SAT 94
[2017-07-21] MEDS: NIFEdipine 30 MG SUSTAINED RELEASE TAB PO SCH (08:45)
[2017-07-21] MEDS: FOLIC ACID 1 MG TAB PO SCH (08:46)
[2017-07-21] MEDS: ASPIRIN 81 MG CHEW TAB PO SCH (08:46)
[2017-07-21] MEDS: METOPROLOL TARTRATE 50 MG TAB PO SCH ×2 (08:46→21:10)
[2017-07-21] MEDS: MULTIVITAMINS/MINERALS THERAPEUTIC TAB PO SCH (08:46)
[2017-07-21] MEDS: levETIRAcetam 500 MG TAB PO SCH ×2 (08:46→21:10)
[2017-07-21] MEDS: THIAMINE HCL 100 MG TAB PO SCH (08:46)
[2017-07-21] MEDS: QUEtiapine FUMARATE 25 MG TAB PO SCH ×3 (08:46→18:08)
[2017-07-21] MEDS: hydrALAZINE HCL 25 MG TAB PO SCH ×2 (08:46→21:10)
[2017-07-21 12:25] LABS: BASOPHIL # 0.1 TH/MM3 (0-0.2); BASOPHIL % 1.4 % (0.0-2.0); EOSINOPHIL # 0.3 TH/MM3 (0-0.4); EOSINOPHIL % 3.1 % (0.0-4.0); HEMATOCRIT 34.8 % (39.0-51.0); HEMOGLOBIN 11.6 GM/DL (13.0-17.0); LYMPH % 13.5 % (9.0-44.0); LYMPHOCYTE # 1.4 TH/MM3 (1.0-4.8); MEAN CELL VOLUME 85.6 FL (80.0-100.0); MEAN CORPUSCULAR HEMOGLOBIN 28.5 PG (27.0-34.0); MEAN CORPUSCULAR HGB CONC 33.3 % (32.0-36.0); MEAN PLATELET VOLUME 9.8 FL (7.0-11.0); MONO % 2.4 % (0.0-8.0); MONOCYTE # 0.2 TH/MM3 (0-0.9); NEUT % 79.6 % (16.0-70.0); PLATELET COUNT 294 TH/MM3 (150-450); RED BLOOD COUNT 4.07 MIL/MM3 (4.50-5.90); RED CELL DISTRIBUTION WIDTH 14.2 % (11.6-17.2); WHITE BLOOD COUNT 10.1 TH/MM3 (4.0-11.0)
[2017-07-21 13:11] LABS: BICARBONATE 29.7 MEQ/L (21.0-32.0); CALCIUM 9.2 MG/DL (8.5-10.1); CREATININE 1.62 MG/DL (0.60-1.30)
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
[2017-07-21 17:53] VITALS: BP 142/71; PULSE 92; RESP 18; TEMP 98.1; O2SAT 98
[2017-07-21] MEDS: risperiDONE 1 MG TAB PO SCH (21:10)
[2017-07-21] MEDS: ATORVASTATIN 20 MG TAB PO SCH (21:11)
[2017-07-22 06:00] VITALS: BP 130/61; PULSE 76; RESP 17; TEMP 98.1; O2SAT 98
[2017-07-22] MEDS: QUEtiapine FUMARATE 25 MG TAB PO SCH ×3 (08:00→18:15)
[2017-07-22] MEDS: NIFEdipine 30 MG SUSTAINED RELEASE TAB PO SCH (08:59)
[2017-07-22] MEDS: levETIRAcetam 500 MG TAB PO SCH ×2 (08:59→21:14)
[2017-07-22] MEDS: ASPIRIN 81 MG CHEW TAB PO SCH (08:59)
[2017-07-22] MEDS: METOPROLOL TARTRATE 50 MG TAB PO SCH ×2 (08:59→21:13)
[2017-07-22] MEDS: hydrALAZINE HCL 25 MG TAB PO SCH ×2 (08:59→21:14)
[2017-07-22] MEDS: FOLIC ACID 1 MG TAB PO SCH (08:59)
[2017-07-22] MEDS: THIAMINE HCL 100 MG TAB PO SCH (08:59)
[2017-07-22] MEDS: MULTIVITAMINS/MINERALS THERAPEUTIC TAB PO SCH (08:59)
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
[2017-07-22 18:00] VITALS: BP 133/60; PULSE 70; RESP 16; TEMP 98.6; O2SAT 97
[2017-07-22] MEDS: ATORVASTATIN 20 MG TAB PO SCH (21:13)
[2017-07-22] MEDS: risperiDONE 1 MG TAB PO SCH (21:14)
[2017-07-23] MEDS: hydrOXYzine HCL 50 MG TAB PO PRN (01:05)
[2017-07-23] MEDS: ACETAMINOPHEN 325 MG TAB PO PRN (01:05)
[2017-07-23 06:06] VITALS: BP 138/73; PULSE 90; RESP 18; TEMP 98.6; O2SAT 96
[2017-07-23] MEDS: hydrALAZINE HCL 25 MG TAB PO SCH ×2 (09:15→22:41)
[2017-07-23] MEDS: levETIRAcetam 500 MG TAB PO SCH ×2 (09:15→22:41)
[2017-07-23] MEDS: THIAMINE HCL 100 MG TAB PO SCH (09:15)
[2017-07-23] MEDS: MULTIVITAMINS/MINERALS THERAPEUTIC TAB PO SCH (09:15)
[2017-07-23] MEDS: METOPROLOL TARTRATE 50 MG TAB PO SCH ×2 (09:15→22:42)
[2017-07-23] MEDS: QUEtiapine FUMARATE 25 MG TAB PO SCH ×3 (09:15→18:22)
[2017-07-23] MEDS: ASPIRIN 81 MG CHEW TAB PO SCH (09:15)
[2017-07-23] MEDS: NIFEdipine 30 MG SUSTAINED RELEASE TAB PO SCH (09:16)
[2017-07-23] MEDS: FOLIC ACID 1 MG TAB PO SCH (09:16)
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
--- NOTE | 2017-07-23 18:04 | HHI.PR ---
Subjective Remarks doing much better more alert and oriented denies backpain Objective Vital Signs Date Time Temp Pulse Resp B/P (MAP) Pulse Ox O2 Delivery O2 Flow Rate FiO2 07/23/17 06:06 98.6 90 18 138/73 (94) 96 07/23/17 05:48 20 I/O 07/22/17 07/22/17 07/22/17 07/23/17 07/23/17 07/23/17 07:00 15:00 23:00 07:00 15:00 23:00 Intake Total 0 ml 720 ml 480 ml 1200 ml 360 ml Balance 0 ml 720 ml 480 ml 1200 ml 360 ml Intake Oral 0 ml 720 ml 480 ml 1200 ml 360 ml # Voids 3 3 1 4 Result Diagram: 07/21/17 1202 07/21/17 1202 Imaging Last Impressions Chest X-Ray 07/11/17 0000 Signed Impressions: Service Date/Time: Tuesday, July 11, 2017 19:30 - CONCLUSION: No acute disease. No significant change has occurred. Robert Hitchcock MD Objective Remarks GENERAL: Well-nourished, well-developed patient. SKIN: Warm and dry. HEAD: Normocephalic. EYES: No scleral icterus. No injection or drainage. NECK: Supple, trachea midline. No JVD or lymphadenopathy. CARDIOVASCULAR: Regular rate and rhythm without murmurs, gallops, or rubs. RESPIRATORY: Breath sounds equal bilaterally. No accessory muscle use. GASTROINTESTINAL: Abdomen soft, non-tender, nondistended. EXTREMITIES: No cyanosis, or edema. NEUROLOGICAL: Awake, alert, and oriented x 3. Non-focal.much less confused Medications and IVs Inpatient Medications Acetaminophen (Tylenol) 650 mg Q4H PRN PO Pain 1-5 or Temp >101F Last administered on 07/23/17at 01:05; Start 07/11/17 at 22:00 Al Hydrox/Mg Hydrox/Simethicone (Mag-Al Plus Susp Liq) 30 ml Q6H PRN PO DYSPEPSIA; Start 07/11/17 at 22:00 Aspirin (Aspirin Chew) 81 mg DAILY PO Last administered on 07/23/17at 09:15; Start 07/12/17 at 09:00 Aspirin (Ecotrin Ec) 81 mg DAILY PO ; Start 07/13/17 at 09:00; Stop 07/13/17 at 09 :00; Status DC Atorvastatin Calcium (Lipitor) 20 mg HS PO ; Start 07/12/17 at 21:00; Stop at 21:00; Status DC Diphenhydramine HCl (Benadryl Inj) 25 mg ONCE STAT IM Last administered on 07/13at 14:11; Start 07/13/17 at 14:11; Stop 07/13/17 at 14:12; Status DC Diphenhydramine HCl (Benadryl) 50 mg HS PRN PO INSOMNIA; Start 07/12/17 at 21:00 Folic Acid (Folate) 1 mg DAILY PO ; Start 07/13/17 at 09:00; Stop 07/13/17 at 09: 00; Status DC Haloperidol Lactate (Haldol Inj) 10 mg ONCE STAT IM Last administered on at 14:09; Start 07/13/17 at 14:09; Stop 07/13/17 at 14:12; Status DC Hydralazine HCl (Apresoline) 25 mg Q12HR PO Last administered on 07/23/17at 09: 15; Start 07/12/17 at 21:00 Hydroxyzine HCl (Atarax) 50 mg Q6H PRN PO ANXIETY; Start 07/12/17 at 09:45; Stop 07/12/17 at 10:19; Status DC Influenza Virus Vaccine (Flu (Quadrivalent) Vaccine Inj) 0.5 ml ONCE ONCE IM ; Start 07/12/17 at 09:00; Stop 07/12/17 at 09:01; Status DC Levetriacetam (Keppra) 500 mg BID PO ; Start 07/12/17 at 21:00; Stop 07/12/17 at 21:00; Status DC Lorazepam (Ativan Inj) 0.5 mg ONCE ONCE IM Last administered on 07/15/17at 14: 41; Start 07/15/17 at 14:45; Stop 07/15/17 at 14:46; Status DC Magnesium Hydroxide (Milk Of Magnesia Liq) 30 ml DAILY PRN PO CONSTIPATION; Start 07/11/17 at 22:00 Metoprolol Tartrate (Lopressor) 50 mg Q12HR PO ; Start 07/12/17 at 21:00; Stop at 21:00; Status DC Miscellaneous Information 1 HS T-DERMAL ; Start 07/12/17 at 21:00; Stop 07/12/17 at 21:00; Status DC Multivitamins/ Minerals Therapeutic (Theragran M Tab) 1 tab DAILY PO ; Start 07/13/17 at 09:00; Stop 07/13/17 at 09:00; Status DC Nicotine (Habitrol 21 Mg Patch.24 Hr) 1 patch DAILY T-DERMAL ; Start 07/12/17 at 09:00; Stop 07/12/17 at 09:00; Status DC Nifedipine (Procardia Xl) 30 mg DAILY PO ; Start 07/13/17 at 09:00; Stop 07/13/17 at 09:00; Status DC Olanzapine (ZyPREXA INJ) 10 mg STAT ONCE IM ; Start 07/12/17 at 18:57; Stop 07/12 at 19:20; Status DC Pneumococcal Polyvalent Vaccine (Pneumovax-23 Inj) 25 mcg ONCE ONCE IM ; Start 07/12/17 at 09:00; Stop 07/12/17 at 09:01; Status DC Quetiapine Fumarate (SEROquel) 25 mg TID@0800,1300,1900 PO Last administered on 07/23/17at 13:52; Start 07/13/17 at 13:00 Risperidone (risperDAL) 1 mg HS PO ; Start 07/12/17 at 21:00; Stop 07/12/17 at 21: 00; Status DC Sodium Chloride 1,000 ml @ 999 mls/hr BOLUS ONCE IV Last administered on at 20:03; Start 07/11/17 at 20:00; Stop 07/11/17 at 21:00; Status DC Thiamine HCl (Vitamin B1) 100 mg DAILY PO ; Start 07/13/17 at 09:00; Stop at 09:00; Status DC Assessment and Plan Problem List: (1) Back pain ICD Codes: M54.9 - Dorsalgia, unspecified (2) HTN (hypertension) ICD Codes: I10 - Essential (primary) hypertension Status: Chronic (3) Dementia in other diseases classified elsewhere with behavioral disturbance ICD Codes: F02.81 - Dementia in other diseases classified elsewhere with behavioral disturbance Assessment and Plan dementia schitzophrenia psych consult Reese Morelos DO Jul 23, 2017 18:04
[2017-07-23 18:12] VITALS: BP 166/86; PULSE 74; RESP 18; TEMP 98.2; O2SAT 97
[2017-07-23] MEDS: ATORVASTATIN 20 MG TAB PO SCH (22:41)
[2017-07-23] MEDS: risperiDONE 1 MG TAB PO SCH (22:41)
[2017-07-24] MEDS: QUEtiapine FUMARATE 25 MG TAB PO SCH ×3 (08:00→18:38)
[2017-07-24] MEDS: hydrALAZINE HCL 25 MG TAB PO SCH ×2 (08:50→21:38)
[2017-07-24] MEDS: METOPROLOL TARTRATE 50 MG TAB PO SCH ×2 (08:50→21:38)
[2017-07-24] MEDS: ASPIRIN 81 MG CHEW TAB PO SCH (08:51)
[2017-07-24] MEDS: NIFEdipine 30 MG SUSTAINED RELEASE TAB PO SCH (08:51)
[2017-07-24] MEDS: THIAMINE HCL 100 MG TAB PO SCH (08:51)
[2017-07-24] MEDS: MULTIVITAMINS/MINERALS THERAPEUTIC TAB PO SCH (08:51)
[2017-07-24] MEDS: FOLIC ACID 1 MG TAB PO SCH (08:51)
[2017-07-24] MEDS: levETIRAcetam 500 MG TAB PO SCH ×2 (08:51→21:38)
--- NOTE | 2017-07-24 12:45 | HHI.PYPN ---
Subjective Chief Complaint: patient confused with increased violence at snf Remarks Patient seen in his room with nurse Aquino, chart reviewed, patient discussed with nurse. Patient's orientation behavior cooperation have continue to slowly improve, patient compliant medications he denies suicidality homicidality voices or visions. For now continue treatment Review of Systems Except as stated in HPI: all other systems reviewed are Neg Mental Status Examination Appearance: Appropriate Consciousness: Alert Orientation: Place (he thinks she is it [facility] in [place]), Date/ Time (July 2017 the ) Motor Activity: Abnormal gait (shuffles somewhat) Speech: Rapid, Hesitant Language: Adequate Fund of Knowledge: Adequate Attention and Concentration: Easily Distracted Memory: Impaired Mood: Irritable Affect: Irritable Thought Process & Associations: Loose associations Thought Content: Bizarre thinking, Hallucinations Hallucination Type: Auditory Delusion Type: Paranoid Suicidal Ideation: No Suicidal Plan: No Suicidal Intention: No Homicidal Ideation: No Homicidal Plan: No Homicidal Intention: No Insight: Poor Judgment: Poor Results Vitals/IOs Vital Signs Date Time Temp Pulse Resp B/P (MAP) Pulse Ox O2 Delivery O2 Flow Rate FiO2 07/23/17 18:12 98.2 74 18 166/86 (112) 97 Intake and Output 07/24/17 07/24/17 07/25/17 08:00 16:00 00:00 Intake Total 360 ml 240 ml Balance 360 ml 240 ml Assessment & Plan Problem List: (1) Dementia in other diseases classified elsewhere with behavioral disturbance ICD Codes: F02.81 - Dementia in other diseases classified elsewhere with behavioral disturbance (2) Dementia, vascular, mixed ICD Codes: F01.50 - Vascular dementia without behavioral disturbance (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 For now continue treatment Justification for Cont. Inpt. At this time patient decompensated placed in a lower level care Discharge Planning Placement Ms. to be determined Request HC Surrog/Guard Advoc?: Yes Problem Qualifiers (1) Dementia, vascular, mixed: Qualified Codes: F01.51 - Vascular dementia with behavioral disturbance Ruiz Holley MD Jul 24, 2017 12:44
--- NOTE | 2017-07-24 14:01 | PD.TTN ---
Patient Problems 1. Discharge planning 2. Medication compliance 3. Knowledge deficit 4. Lack of coping skills Progress Toward Goals Provider Present: Dr. Sintia Holley Provider Input: 07/23/17 needs other consults from neurology and OT to assess if still in need of placement 07/17/17 patient remains non compliant and is in need for placement , Diagnosis Dementia Psychiatric Counselors Present: Heidy Barlow LCSW Psych Therapist Input: 07/23/17 patient has improved but sister came to visit and shared he was so scattered she worries for him to live on own, referred to LT [facility] facilities will follow up this week 07/17/17 referrals sent to facilities, notes are not well, patient remains needing ETO, and is constantly aggitated and angry daugther will visit tomorrow and no one in family could be his caregiver, all of them work - will need placement in intermediate Group Spec/RT/OT/CARLISLE Present: Elida Cobb, GPS Group Spec/RT/OT/CARLISLE Input: 07/23/17 OT will see him again, he is visible but not participating 07/17/17 patient is visible in the milieu , overall mood is calmer Heidy Barlow LCSW Jul 24, 2017 14:01
[2017-07-24 18:04] VITALS: BP 164/82; PULSE 82; RESP 18; TEMP 98.6; O2SAT 98
[2017-07-24] MEDS: risperiDONE 1 MG TAB PO SCH (21:38)
[2017-07-24] MEDS: ATORVASTATIN 20 MG TAB PO SCH (21:38)
[2017-07-25 05:15] VITALS: BP 158/92; PULSE 93; RESP 20; TEMP 98.8
[2017-07-25] MEDS: METOPROLOL TARTRATE 50 MG TAB PO SCH ×2 (09:06→20:27)
[2017-07-25] MEDS: FOLIC ACID 1 MG TAB PO SCH (09:07)
[2017-07-25] MEDS: NIFEdipine 30 MG SUSTAINED RELEASE TAB PO SCH (09:07)
[2017-07-25] MEDS: QUEtiapine FUMARATE 25 MG TAB PO SCH ×3 (09:07→18:08)
[2017-07-25] MEDS: ASPIRIN 81 MG CHEW TAB PO SCH (09:07)
[2017-07-25] MEDS: THIAMINE HCL 100 MG TAB PO SCH (09:07)
[2017-07-25] MEDS: levETIRAcetam 500 MG TAB PO SCH ×2 (09:07→20:27)
[2017-07-25] MEDS: MULTIVITAMINS/MINERALS THERAPEUTIC TAB PO SCH (09:07)
[2017-07-25] MEDS: hydrALAZINE HCL 25 MG TAB PO SCH ×2 (09:07→20:27)
--- NOTE | 2017-07-25 13:52 | HHI.PYPN ---
Subjective Chief Complaint: patient confused with increased violence at retirement Remarks Patient seen in his room with nurse Elvie, chart review, patient discussed with nurse. Patient continues calm pleasantly confused no behavior problems. At times he appears fairly lucid. It appears he is acceptable referral to an [facility]/retirement type placement. We'll continue working with this Review of Systems Except as stated in HPI: all other systems reviewed are Neg Mental Status Examination Appearance: Appropriate Consciousness: Alert Orientation: Place (he thinks she is it [facility] in [place]), Date/ Time (July 2017 the ) Motor Activity: Abnormal gait (shuffles somewhat) Speech: Rapid, Hesitant Language: Adequate Fund of Knowledge: Adequate Attention and Concentration: Easily Distracted Memory: Impaired Mood: Irritable Affect: Irritable Thought Process & Associations: Loose associations Thought Content: Bizarre thinking, Hallucinations Hallucination Type: Auditory Delusion Type: Paranoid Suicidal Ideation: No Suicidal Plan: No Suicidal Intention: No Homicidal Ideation: No Homicidal Plan: No Homicidal Intention: No Insight: Poor Judgment: Poor Results Vitals/IOs Vital Signs Date Time Temp Pulse Resp B/P (MAP) Pulse Ox O2 Delivery O2 Flow Rate FiO2 07/25/17 05:15 98.8 93 20 158/92 (114) 07/24/17 18:04 98 Intake and Output 07/25/17 07/25/17 07/26/17 08:00 16:00 00:00 Intake Total 0 ml Balance 0 ml Assessment & Plan Problem List: (1) Dementia in other diseases classified elsewhere with behavioral disturbance ICD Codes: F02.81 - Dementia in other diseases classified elsewhere with behavioral disturbance (2) Dementia, vascular, mixed ICD Codes: F01.50 - Vascular dementia without behavioral disturbance (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 Is calm cooperative compliant medication. Justification for Cont. Inpt. At this time patient will decompensate a placed a lower level of care Discharge Planning Placement remains somewhat problematic Request HC Surrog/Guard Advoc?: Yes Problem Qualifiers (1) Dementia, vascular, mixed: Qualified Codes: F01.51 - Vascular dementia with behavioral disturbance Ruiz Holley MD Jul 25, 2017 13:52
[2017-07-25 18:27] VITALS: BP 143/76; PULSE 92; RESP 18; TEMP 98.5; O2SAT 98
[2017-07-25] MEDS: ATORVASTATIN 20 MG TAB PO SCH (20:27)
[2017-07-25] MEDS: risperiDONE 1 MG TAB PO SCH (20:27)
[2017-07-26 05:25] VITALS: BP 136/69; PULSE 89; RESP 16; TEMP 97.7; O2SAT 96
[2017-07-26] MEDS: hydrALAZINE HCL 25 MG TAB PO SCH ×2 (09:00→21:14)
[2017-07-26] MEDS: ASPIRIN 81 MG CHEW TAB PO SCH (09:13)
[2017-07-26] MEDS: NIFEdipine 30 MG SUSTAINED RELEASE TAB PO SCH (09:13)
[2017-07-26] MEDS: METOPROLOL TARTRATE 50 MG TAB PO SCH ×2 (09:13→21:14)
[2017-07-26] MEDS: MULTIVITAMINS/MINERALS THERAPEUTIC TAB PO SCH (09:13)
[2017-07-26] MEDS: levETIRAcetam 500 MG TAB PO SCH ×2 (09:13→21:14)
[2017-07-26] MEDS: THIAMINE HCL 100 MG TAB PO SCH (09:13)
[2017-07-26] MEDS: FOLIC ACID 1 MG TAB PO SCH (09:13)
[2017-07-26] MEDS: QUEtiapine FUMARATE 25 MG TAB PO SCH ×3 (09:14→18:26)
--- NOTE | 2017-07-26 09:17 | HHI.PYPN ---
Subjective Chief Complaint: patient confused with increased violence at custodial Remarks Patient seen in his room with nurse Darren, chart reviewed, patient discussed with nurse. Patient continues calm cooperative diffusely confused. Patient scheduled for re-hearing [place] [facility] today. It appears old treating custodial has agreed to accept this patient tomorrow to their facility. Will discuss this with patient's family. Review of Systems Except as stated in HPI: all other systems reviewed are Neg Mental Status Examination Appearance: Appropriate Consciousness: Alert Orientation: Place (he thinks she is it [facility] in [place]), Date/ Time (July 2017 the ) Motor Activity: Abnormal gait (shuffles somewhat) Speech: Rapid, Hesitant Language: Adequate Fund of Knowledge: Adequate Attention and Concentration: Easily Distracted Memory: Impaired Mood: Irritable Affect: Irritable Thought Process & Associations: Loose associations Thought Content: Bizarre thinking, Hallucinations Hallucination Type: Auditory Delusion Type: Paranoid Suicidal Ideation: No Suicidal Plan: No Suicidal Intention: No Homicidal Ideation: No Homicidal Plan: No Homicidal Intention: No Insight: Poor Judgment: Poor Results Vitals/IOs Vital Signs Date Time Temp Pulse Resp B/P (MAP) Pulse Ox O2 Delivery O2 Flow Rate FiO2 07/26/17 05:25 97.7 89 16 136/69 (91) 96 Intake and Output 07/26/17 07/26/17 07/27/17 08:00 16:00 00:00 Intake Total 480 ml Balance 480 ml Assessment & Plan Problem List: (1) Dementia in other diseases classified elsewhere with behavioral disturbance ICD Codes: F02.81 - Dementia in other diseases classified elsewhere with behavioral disturbance (2) Dementia, vascular, mixed ICD Codes: F01.50 - Vascular dementia without behavioral disturbance (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 It appears this placement available tomorrow for him. Related to discuss this with family. Patient scheduled for repeat hearing [place] [facility] today Justification for Cont. Inpt. This time patient is not placed an appropriate level of care Discharge Planning Appears is a bed available for the somewhat tomorrow it 03. Request HC Surrog/Guard Advoc?: Yes Problem Qualifiers (1) Dementia, vascular, mixed: Qualified Codes: F01.51 - Vascular dementia with behavioral disturbance Ruiz Holley MD Jul 26, 2017 09:17
[2017-07-26 17:21] VITALS: BP 141/69; PULSE 84; RESP 16; TEMP 98.2; O2SAT 97
[2017-07-26] MEDS: risperiDONE 1 MG TAB PO SCH (21:14)
[2017-07-26] MEDS: ATORVASTATIN 20 MG TAB PO SCH (21:14)
[2017-07-27 06:18] VITALS: BP 158/77; PULSE 92; RESP 18; TEMP 98.8; O2SAT 96
[2017-07-27] MEDS: MULTIVITAMINS/MINERALS THERAPEUTIC TAB PO SCH (08:40)
[2017-07-27] MEDS: METOPROLOL TARTRATE 50 MG TAB PO SCH (08:40)
[2017-07-27] MEDS: NIFEdipine 30 MG SUSTAINED RELEASE TAB PO SCH (08:40)
[2017-07-27] MEDS: FOLIC ACID 1 MG TAB PO SCH (08:40)
[2017-07-27] MEDS: ASPIRIN 81 MG CHEW TAB PO SCH (08:41)
[2017-07-27] MEDS: THIAMINE HCL 100 MG TAB PO SCH (08:41)
[2017-07-27] MEDS: levETIRAcetam 500 MG TAB PO SCH (08:41)
[2017-07-27] MEDS: hydrALAZINE HCL 25 MG TAB PO SCH (08:43)
[2017-07-27] MEDS: QUEtiapine FUMARATE 25 MG TAB PO SCH (08:46)
[2017-07-27] MEDS ORDERED: THIA100 PO (08:51)
[2017-07-27] MEDS ORDERED: LEVE500 PO (08:51)
[2017-07-27] MEDS ORDERED: RISP1 PO (08:51)
[2017-07-27] MEDS ORDERED: SERO25TA PO (08:51)
[2017-07-27] MEDS ORDERED: THERM PO (08:51)
[2017-07-27] MEDS ORDERED: METO-309 PO (08:51)
[2017-07-27] MEDS ORDERED: ECASA81 PO (08:51)
[2017-07-27] MEDS ORDERED: FOLI1TAB6 PO (08:51)
[2017-07-27] MEDS ORDERED: ATOR20TA15 PO (08:51)
[2017-07-27] MEDS ORDERED: HYDR-3799 PO (08:51)
[2017-07-27] MEDS ORDERED: NIFE30TA8 PO (08:51)
--- NOTE | 2017-07-27 09:01 | HHI.DS ---
Psychiatry Discharge Summary Inpatient Psychiatric care?: Yes Advance Directive: No Reason Not Provided: CONFUSED/AGITATED Mental Health AdvanceDirective: No Health Care Proxy: No Admission Admission Date Jul 11, 2017 at 21:45 Admission Diagnosis: (1) Dementia in other diseases classified elsewhere with behavioral disturbance ICD Code: F02.81 - Dementia in other diseases classified elsewhere with behavioral disturbance (2) Dementia, vascular, mixed ICD Code: F01.50 - Vascular dementia without behavioral disturbance Brief History Patient is 66 year-old -[place] male who comes here under [place] act signed by a Blossom Downs dated 07/11/17 and 1:05 PM that document reviewed and agreed with that is essentially stating the patient unpredictable and exhibits poor impulse control he has been having active auditory hallucinations hearing patient's cry and believes them to be the patient has been threatening to hurt nursing staff at the half-way despite attempts to maintain patient here he is still on manageable the patient is unable to make appropriate decisions for self and is unsafe at this half-way. Patient seen screened in the emergency department urine negative. Patient's EMR reviewed. It appears patient was hospitalized here the end of May 2017 for rhabdomyolysis was discharged then return back here on 07/03/17 with a history of occipital infarct and new onset seizure disorder and discharged back to [facility]. Patient also has a prior history of alcohol abuse patient states his last drink was about 40 days ago. He said he drank mainly beer and that was done daily. He acknowledges a DUI in the past she acknowledges some type of incarceration related perhaps to that DUI. He denies other drug use. At the present time patient sitting quietly in a chair in the day room he is calm with me though there is an underlying irritability vigilance and paranoia with him. He thinks she is at [facility] of the [facility]. He knows he is in [place] that is 2017 that is July but he thinks it's the . He does acknowledge having a stroke recently he states he feels some weakness towards his left side and some visual issues in his right eye. He does denies suicidality at this time. There does acknowledge auditory hallucinations. Staff is also noted that he talks from self appears of conversations with imaginary people. Those of vagueness about any visual perceptual abnormalities. Patient states she's been twice. That he has a daughter. Patient acknowledges alcohol related issues in his family of origin. He denies any physical or sexual abuse. Denies ever being in the . 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 At the present time I feel patient meets criteria for involuntary psychiatric hospitalization of the [place] act I'll do first opinion request second opinion. Also question as capacity to make decisions concerning his care thus I'll ask for healthcare surrogate and guardian advocate. We'll have hospitalist also consult will us. And have neurology consult with us also along with PT. Patient appears was placed on the Respinol 0.5 mg a.m. and 1 mg at bedtime at [facility] will continue that at the present time. We will attempt to reach patient's family if further information them consult with them related to treatment and placement options The patient is a 66 years old man, with psychiatric history of dementia, brought to the hospital on the [place] at due to aggressive behavior, poor impulse control, paranoia, and perceptual disturbances. Patient was consulted to me for second opinion. On psychiatric evaluation today the patient is irritable, oppositional, but he is redirectable, able to answer my questions. She is unable to verbalize the reason of his hospitalization. He says that he is very upset because he has been here for 4 weeks. The patient is oriented in person and time, but disoriented in place. He knows was the president. He reports that he has been losing his memory, but he reports good mood, denies suicidal and homicidal ideation, even though he denies visual and auditory hallucinations, patient seems to be internally stimulated, guarded and paranoid. Tobacco Use In Past 30 Days: No Tobacco Past 30 Days Alcohol Use: Never Hospital Course Patient's hospital course show patient's behavior irritability and paranoia slowly resolving as he show compliance with the medication. His underlying cognitive deficits soften somewhat but did remain continues quite confused needing assistance and redirection. Over he is no longer a behavior problem his calm cooperative and pleasant. He is compliant with his medication. This time patient will meet [place] criteria for inpatient psychiatric stay. There is a bed available today at [facility]. Patient to be discharged facility today with Rx 1 month the follow-up mental health services through that facility Results Blood Pressure 158 / 77 Vital Signs Date Time Temp Pulse Resp B/P (MAP) Pulse Ox O2 Delivery O2 Flow Rate FiO2 07/27/17 06:18 98.8 92 18 158/77 (104) 96 Urine toxicology negative Summary of Procedures None done Imaging Last Impressions Chest X-Ray 07/11/17 0000 Signed Impressions: Service Date/Time: Tuesday, July 11, 2017 19:30 - CONCLUSION: No acute disease. No significant change has occurred. Robert Hitchcock MD Pending results at discharge: No Medications # of Antipsychotic meds at D/C: 2 Appropriate >1 Antipsych meds?: 2 (would recommend weaning off the at bedtime Respinol as patient recovers) Approp Antipsych med options 1 - Minimum of three failed multiple trials of monotherapy. 2 - Documented plan to taper to monotherapy due to previous use of multiple meds OR cross-taper in progress at D/C. 3 - Documentation of augmentation of Clozapine. 4 - Justification other than those listed in allowable values 1-3, document here : Discharge Discharge Date: Jul 27, 2017 Discharge Diagnosis: (1) Dementia in other diseases classified elsewhere with behavioral disturbance Diagnosis: Principal ICD Code: F02.81 - Dementia in other diseases classified elsewhere with behavioral disturbance (2) Dementia, vascular, mixed Diagnosis: Principal ICD Code: F01.50 - Vascular dementia without behavioral disturbance Pt Condition on Discharge: Stable Discharge Disposition: Discharge to SNF Discharge Instructions Diet Instructions: As Tolerated, No Restrictions Activities you can perform: Regular-No Restrictions Scheduled Appointment: Discharge Time > 30 minutes Mental Status Examination Appearance: Appropriate Consciousness: Alert Orientation: Place (he thinks she is it [facility] in [place]), Date/ Time (July 2017 the ) Motor Activity: Abnormal gait (shuffles somewhat) Speech: Rapid, Hesitant Language: Adequate Fund of Knowledge: Adequate Attention and Concentration: Easily Distracted Memory: Impaired Mood: Irritable Affect: Irritable Thought Process & Associations: Loose associations Thought Content: Bizarre thinking, Hallucinations Hallucination Type: Auditory Delusion Type: Paranoid Suicidal Ideation: No Suicidal Plan: No Suicidal Intention: No Homicidal Ideation: No Homicidal Plan: No Homicidal Intention: No Insight: Poor Judgment: Poor Discharge/Advance Care Plan Health Problems: (1) Dementia in other diseases classified elsewhere with behavioral disturbance (2) Dementia, vascular, mixed (3) Alcoholic dementia Goals to promote your health * To prevent worsening of your condition and complications * To maintain your health at the optimal level Directions to meet your goals Take your medications as prescribed Follow your dietary instruction Follow activity as directed Keep your appointments as scheduled Take your immunizations and boosters as scheduled If your symptoms worsen call your PCP, if no PCP go to Urgent Care Center or Emergency Room For / questions related to your inpatient stay or results of tests pending at discharge, please contact Dr. Ruiz Holley at Smoking is Dangerous to Your Health. Avoid second hand smoking Problem Qualifiers (1) Dementia, vascular, mixed: Qualified Codes: F01.51 - Vascular dementia with behavioral disturbance Ruiz Holley MD Jul 27, 2017 09:01
--- NOTE | 2017-07-30 16:33 | PD.TTN ---
Patient Problems 1. Discharge planning 2. Medication compliance 3. Knowledge deficit 4. Lack of coping skills Progress Toward Goals Provider Present: Dr. Sintia Holley Provider Input: 07/25/17 [address] to [address] and placement to be addressed 07/23/17 needs other consults from neurology and OT to assess if still in need of placement 07/17/17 patient remains non compliant and is in need for placement , Diagnosis Dementia Psychiatric Counselors Present: Heidy Barlow LCSW Psych Therapist Input: 07/25/17 patient is calm and cooperative now but appears unable to care for self and is accepted by [facility], sister will attend court as she is not sure if he should go to a Intermediate 07/23/17 patient has improved but sister came to visit and shared he was so scattered she worries for him to live on own, referred to LT half-way facilities will follow up this week 07/17/17 referrals sent to facilities, notes are not well, patient remains needing ETO, and is constantly aggitated and angry daugther will visit tomorrow and no one in family could be his caregiver, all of them work - will need placement in half-way Group Spec/RT/OT/CARLISLE Present: Elida Cobb, GPS Group Spec/RT/OT/CARLISLE Input: 07/25/17 has been tested by OT and cannot perform daily ADL and self care as he is too confused , see OT eval- will be addressed in court 07/23/17 OT will see him again, he is visible but not participating 07/17/17 patient is visible in the milieu , overall mood is calmer Heidy Barlow LCSW Jul 30, 2017 16:33
== END 2017-07-27 13:45 | DRG 884 ==
LOC: NEPD 16:29 → NEDA 21:45 → H250 22:10
PROVIDERS: ADMIT Psychiatry & Neurology Psychiatry; ATTEND Psychiatry & Neurology Psychiatry
DX: F01.51 Vascular dementia, unspecified severity, with behavioral disturbance (principal); F10.27 Alcohol dependence with alcohol-induced persisting dementia; F02.81 Dementia in other diseases classified elsewhere, unspecified severity, with behavioral disturbance; R44.0 Auditory hallucinations; I69.354 Hemiplegia and hemiparesis following cerebral infarction affecting left non-dominant side; R26.9 Unspecified abnormalities of gait and mobility; R45.1 Restlessness and agitation; I10 Essential (primary) hypertension; N19 Unspecified kidney failure; M54.9 Dorsalgia, unspecified; R00.0 Tachycardia, unspecified; J44.9 Chronic obstructive pulmonary disease, unspecified
CPT/HCPCS: 71045; 80048; 80053; 80307; 81001; 82550; 82552; 85025; 96360; 96361; J1200; J1630; J2060; J7030

== ENCOUNTER 2017-08-14 10:08 | Inpatient (IN) | payer MEDICARE, MEDICAID ==
[~2017-08-14] VITALS: Ht 188 cm; Wt 105.4 kg
[~2017-08-14 10:08] MED LIST changes: +RISP1 PO; +SERO25TA PO; +TYLE325T PO; -WALKER WHEELS/F1 MIS
[2017-08-14 10:15] VITALS: BP 177/95; PULSE 87; RESP 16; TEMP 97.5; O2SAT 99
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
[2017-08-14] MEDS ORDERED: SODIUM CHLORIDE 0.9% FLUSH 10 ML FLUSH IVF PRN (12:30)
[2017-08-14] MEDS ORDERED: SODIUM CHLORID 0.9% 500 ML INJ 500 ML IV ONE (12:30)
[2017-08-14 13:08] VITALS: BP 204/88; PULSE 82; PULSE 84; RESP 18; O2SAT 95; O2SAT 98
--- NOTE | 2017-08-14 13:30 | RADRPT ---
EXAM DATE/TIME: 08/14/2017 12:47 [facility] COMPARISON: None. INDICATIONS : <<Syncope. Patient states he has twitching in his left hand and fingers.>> MEDICAL HISTORY : CVA 1 month ago. Chronic obstructive pulmonary disease. Hypertension SURGICAL HISTORY : Hernia repair. ENCOUNTER: Initial ACUITY: 1 day PAIN SCORE: 0/10 LOCATION: Bilateral chest FINDINGS: A single view of the chest demonstrates the lungs to be symmetrically aerated without evidence of mas s, infiltrate or effusion. The cardiomediastinal contours are unremarkable. Osseous structures are intact. CONCLUSION: No acute disease. Natan Mitchell MD on August 14, 2017 at 13:26 Board Certified Radiologist. This report was verified electronically.
[2017-08-14 13:31] LABS: BILIRUBIN, URINE NEG (NEG); BLOOD, URINE NEG (NEG); GLUCOSE,URINE NEG (NEG); KETONE, URINE NEG (NEG); NITRITE,URINE NEG (NEG); PH, URINE 6.5 (5.0-8.5); SQUAMOUS EPITHELIAL CELL URINE <1 /hpf (0-5); URINE COLOR YELLOW (YELLW/STRAW); URINE LEUKOCYTE ESTERASE NEG (NEG)
[2017-08-14 13:32] LABS: AUTOMATED NEUTROPHIL # 10.9 TH/MM3 (1.8-7.7); BASOPHIL # 0.2 TH/MM3 (0-0.2); BASOPHIL % 1.1 % (0.0-2.0); EOSINOPHIL # 0.2 TH/MM3 (0-0.4); EOSINOPHIL % 1.5 % (0.0-4.0); HEMATOCRIT 33.4 % (39.0-51.0); HEMOGLOBIN 11.5 GM/DL (13.0-17.0); LYMPH % 14.7 % (9.0-44.0); MEAN CELL VOLUME 83.1 FL (80.0-100.0); MEAN CORPUSCULAR HEMOGLOBIN 28.6 PG (27.0-34.0); MEAN CORPUSCULAR HGB CONC 34.4 % (32.0-36.0); MEAN PLATELET VOLUME 9.8 FL (7.0-11.0); MONO % 2.5 % (0.0-8.0); MONOCYTE # 0.3 TH/MM3 (0-0.9); NEUT % 80.2 % (16.0-70.0); PLATELET COUNT 285 TH/MM3 (150-450); RED BLOOD COUNT 4.02 MIL/MM3 (4.50-5.90); WHITE BLOOD COUNT 13.6 TH/MM3 (4.0-11.0)
[2017-08-14 13:35] LABS: INTERNATIONAL NORMALIZED RATIO 1.1 RATIO; PROTHROMBIN TIME - PATIENT 10.9 SEC (9.8-11.6)
[2017-08-14 14:05] LABS: ALBUMIN 3.1 GM/DL (3.4-5.0); ALT (GPT) 20 U/L (12-78); AST (GOT) 17 U/L (15-37); BICARBONATE 28.4 MEQ/L (21.0-32.0); BLOOD UREA NITROGEN 16 MG/DL (7-18); CALCIUM 8.5 MG/DL (8.5-10.1); CHLORIDE 104 MEQ/L (98-107); CREATININE 1.38 MG/DL (0.60-1.30); GLOMERULAR FILTRATION RATE 62 ML/MIN (>89); GLUCOSE,RANDOM 72 MG/DL (74-106); MAGNESIUM 1.9 MG/DL (1.5-2.5); SODIUM (NA) 138 MEQ/L (136-145)
--- NOTE | 2017-08-14 14:06 | RADRPT ---
EXAM DATE/TIME: 08/14/2017 13:50 [facility] COMPARISON: CT BRAIN W/O CONTRAST, July 02, 2017, 4:34. MRI BRAIN W/O CONTRAST, July 03, 2017, 9:57. MRI BRAIN W & W/O CONTRAST, July 04, 2017, 11:26. CT BRAIN W/O CONTRAST, July 05, 2017, 18:01. CTA BRAIN W 3D RECON, July 05, 2017, 18:01. INDICATIONS : Altered mental status, left arm complaint RADIATION DOSE: 48.29 CTDIvol (mGy) MEDICAL HISTORY : Dementia. Cardiovascular disease Chronic obstructive pulmonary disease. SURGICAL HISTORY : None. ENCOUNTER: Initial ACUITY: 1 day PAIN SCALE: 3/10 LOCATION: cranial TECHNIQUE: Multiple contiguous axial images were obtained of the head. Using automated exposure control and adj ustment of the mA and/or kV according to patient size, radiation dose was kept as low as reasonably a chievable to obtain optimal diagnostic quality images. DICOM format image data is available electro nically for review and comparison. FINDINGS: CEREBRUM: The examination demonstrates a 4 mm area of increased density in the high right posterior parietal co rtex. This was not evident on patient's previous examinations and would be consistent with a punctate area of intraparenchymal hemorrhage. There is no significant mass effect associated with this. The v entricles are normal in size and configuration. No extra-axial fluid collections are seen. POSTERIOR FOSSA: The cerebellum and brainstem are intact. The 4th ventricle is midline. The cerebellopontine angle i s unremarkable. EXTRACRANIAL: The visualized portion of the orbits is intact. SKULL: The calvaria is intact. No evidence of skull fracture. CONCLUSION: 1. 4 mm area of increased attenuation in the right posterior parietal cortex most consistent with a p unctate area of parenchymal hemorrhage. This was not seen on patient's previous examinations. There i s no significant mass effect associated with this. MRI imaging of the brain with contrast would be of benefit for further assessment to ensure there is no underlying lesion. Jevon Osborne MD on August 14, 2017 at 13:59 Board Certified Radiologist. This report was verified electronically.
[2017-08-14 14:16] LABS: ALKALINE PHOSPHATASE 97 U/L (45-117); TOTAL BILIRUBIN ADULT 0.4 MG/DL (0.2-1.0); TOTAL PROTEIN 8.1 GM/DL (6.4-8.2); TROPONIN I LESS THAN 0.02 NG/ML (0.02-0.05)
[2017-08-14] MEDS ORDERED: hydrALAZINE HCL 20 MG/ML VIAL IV PUSH ONE (15:00)
[2017-08-14] MEDS ORDERED: MAGNESIUM HYDROXIDE SUSP 30 ML CUP PO PRN (15:45)
[2017-08-14] MEDS ORDERED: SENNOSIDES 8.6 MG TAB PO PRN (15:45)
[2017-08-14] MEDS ORDERED: NALOXONE HCL 0.4 MG/ML AMP IV PUSH PRN (15:45)
[2017-08-14] MEDS ORDERED: SODIUM CHLORIDE 0.9% FLUSH 10 ML FLUSH IV FLUSH PRN (15:45)
[2017-08-14] MEDS ORDERED: BISACODYL 10 MG SUPP RECTAL PRN (15:45)
[2017-08-14] MEDS ORDERED: LACTULOSE SYRUP 20 GM/30 ML CUP PO PRN (15:45)
[2017-08-14] MEDS ORDERED: ONDANSETRON HCL 4 MG/2 ML VIAL IVP PRN (15:45)
[2017-08-14 16:00] VITALS: BP 174/81; PULSE 76; RESP 18; O2SAT 96
[2017-08-14] MEDS ORDERED: hydrALAZINE HCL 20 MG/ML VIAL IV PUSH PRN (17:15)
[2017-08-14] MEDS ORDERED: RESP: ALBUTEROL 2.5 MG/IPRATROPIUM 0.5 MG NEB (PRN) NEB (17:30)
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
[2017-08-14] MEDS ORDERED: GADODIAMIDE PF 287 MG/ML 5 ML VIAL (for RAD MRI) IVCONTRAST ONE (17:51)
--- NOTE | 2017-08-14 18:06 | PD ---
Data Data Last Documented VS Vital Signs Date Time Temp Pulse Resp B/P (MAP) Pulse Ox O2 Delivery O2 Flow Rate FiO2 08/14/17 13:08 82 18 204/88 (126) 98 Room Air 08/14/17 10:15 97.5 Orders Orders Electrocardiogram (08/14/17 12:23) Ammonia (08/14/17 12:23) Complete Blood Count With Diff (08/14/17 12:23) Comprehensive Metabolic Panel (08/14/17 12:23) Creatine Kinase (Cpk) (08/14/17 12:23) Prothrombin Time / Inr (Pt) (08/14/17 12:23) Troponin I (08/14/17 12:23) Thyroid Stimulating Hormone (08/14/17 12:23) Urinalysis - C+S If Indicated (08/14/17 12:23) Chest, Single Ap (08/14/17 12:23) Drug Screen, Random Urine (08/14/17 12:23) Alcohol (Ethanol) (08/14/17 12:23) Magnesium (Mg) (08/14/17 12:23) Ecg Monitoring (08/14/17 12:23) Iv Access Insert/Monitor (08/14/17 12:23) Oximetry (08/14/17 12:23) Sodium Chloride 0.9% Flush (Ns Flush) (08/14/17 12:30) Sodium Chlorid 0.9% 500 Ml Inj (Ns 500 M (08/14/17 12:30) Ct Brain W/O Iv Contrast(Rout) (08/14/17 ) Hydralazine Inj (Apresoline Inj) (08/14/17 15:00) Admit To Inpatient (08/14/17 ) Vital Signs (Adult) Q4H (08/14/17 15:35) Activity Bed Rest (08/14/17 15:35) Patient Access Registrar / Telemetry .CONTINUOUS (08/14/17 15:35) Diet Heart Healthy (08/14/17 Dinner) Sodium Chloride 0.9% Flush (Ns Flush) (08/14/17 15:45) Sodium Chloride 0.9% Flush (Ns Flush) (08/14/17 21:00) Acetaminophen (Tylenol) (08/14/17 15:45) Ondansetron Inj (Zofran Inj) (08/14/17 15:45) Basic Metabolic Panel (Bmp) (08/15/17 06:00) Complete Blood Count With Diff (08/15/17 06:00) Scd Bilateral/Knee High TE.BID (08/14/17 15:35) Naloxone Inj (Narcan Inj) (08/14/17 15:45) Docusate Sodium-Senna (Génesis-Colace) (08/14/17 21:00) Magnesium Hydroxide Liq (Milk Of Magnesi (08/14/17 15:45) Sennosides (Senokot) (08/14/17 15:45) Bisacodyl Supp (Dulcolax Supp) (08/14/17 15:45) Lactulose Liq (Lactulose Liq) (08/14/17 15:45) Consult Neurosurgery (08/14/17 ) Mri Brain W&W/O Contrast (08/14/17 ) (Hub Use Only)Inp Phy Cons/Ref (08/14/17 ) Admit Order (Ed Use Only) (08/14/17 16:54) Labs Laboratory Tests Test 08/14/17 12:41 08/14/17 12:50 White Blood Count 13.6 TH/MM3 Red Blood Count 4.02 MIL/MM3 Hemoglobin 11.5 GM/DL Hematocrit 33.4 % Mean Corpuscular Volume 83.1 FL Mean Corpuscular Hemoglobin 28.6 PG Mean Corpuscular Hemoglobin Concent 34.4 % Red Cell Distribution Width 14.0 % Platelet Count 285 TH/MM3 Mean Platelet Volume 9.8 FL Neutrophils (%) (Auto) 80.2 % Lymphocytes (%) (Auto) 14.7 % Monocytes (%) (Auto) 2.5 % Eosinophils (%) (Auto) 1.5 % Basophils (%) (Auto) 1.1 % Neutrophils # (Auto) 10.9 TH/MM3 Lymphocytes # (Auto) 2.0 TH/MM3 Monocytes # (Auto) 0.3 TH/MM3 Eosinophils # (Auto) 0.2 TH/MM3 Basophils # (Auto) 0.2 TH/MM3 CBC Comment AUTO DIFF Differential Comment AUTO DIFF CONFIRMED Prothrombin Time 10.9 SEC Prothromb Time International Ratio 1.1 RATIO Blood Urea Nitrogen 16 MG/DL Creatinine 1.38 MG/DL Random Glucose 72 MG/DL Total Protein 8.1 GM/DL Albumin 3.1 GM/DL Calcium Level 8.5 MG/DL Magnesium Level 1.9 MG/DL Alkaline Phosphatase 97 U/L Aspartate Amino Transf (AST/SGOT) 17 U/L Alanine Aminotransferase (ALT/SGPT) 20 U/L Total Bilirubin 0.4 MG/DL Sodium Level 138 MEQ/L Potassium Level 4.1 MEQ/L Chloride Level 104 MEQ/L Carbon Dioxide Level 28.4 MEQ/L Anion Gap 6 MEQ/L Estimat Glomerular Filtration Rate 62 ML/MIN Ammonia 28 MCMOL/L Total Creatine Kinase 145 U/L Troponin I LESS THAN 0.02 NG/ML Thyroid Stimulating Hormone 3rd Gen 2.230 uIU/ML Ethyl Alcohol Level LESS THAN 3 MG/DL Urine Color YELLOW Urine Turbidity CLEAR Urine pH 6.5 Urine Specific [place] 1.015 Urine Protein 100 mg/dL Urine Glucose (UA) NEG mg/dL Urine Ketones NEG mg/dL Urine Occult Blood NEG Urine Nitrite NEG Urine Bilirubin NEG Urine Urobilinogen LESS THAN 2.0 MG/DL Urine Leukocyte Esterase NEG Urine RBC LESS THAN 1 /hpf Urine WBC 1 /hpf Urine Squamous Epithelial Cells <1 /hpf Microscopic Urinalysis Comment CATH-CULT NOT IND Urine Opiates Screen NEG Urine Barbiturates Screen NEG Urine Amphetamines Screen NEG Urine Benzodiazepines Screen NEG Urine Cocaine Screen NEG Urine Cannabinoids Screen NEG MDM Supervised Visit with RYAN: Yes Narrative Course The history, exam, and medical decision-making in the associated mid-level provider note were completed with my assistance. I reviewed and agree with the findings presented. I attest that I had a [id number] encounter with the patient on the same day, and personally performed and documented my assessment and findings in the medical record. *My assessment and Findings: 67-year-old man, brought in from home by EVAC. I think his sister probably called it is a little bit unclear. He was by himself. He is having some weird shaking convulsions of the hand. He said seizures in the past but does not sound like seizure. Previous small strokes seen on MRI now with a small punctate area of hyperintensity on CT scan it could correspond to a small area of hemorrhage. Will recommend admission for observation. Diagnosis Primary Impression: Cerebral parenchymal hemorrhage Qualified Codes: I61.8 - Other nontraumatic intracerebral hemorrhage Condition: Stable Logan Otero MD Aug 14, 2017 18:06
[2017-08-14 18:46] VITALS: BP 161/87; PULSE 83; RESP 16; O2SAT 96
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
[2017-08-14 20:00] VITALS: O2SAT 96
[2017-08-14 21:00] VITALS: BP 172/95; PULSE 99; RESP 24; TEMP 98.7; O2SAT 98
[2017-08-14] MEDS: SODIUM CHLORIDE 0.9% FLUSH 10 ML FLUSH IV FLUSH SCH (21:00)
[2017-08-14] MEDS: DOCUSATE SODIUM 50 MG/SENNA 8.6 MG TAB PO SCH (21:00)
[2017-08-14] MEDS: METOPROLOL TARTRATE 50 MG TAB PO SCH (21:47)
[2017-08-14] MEDS: ATORVASTATIN 20 MG TAB PO SCH (21:47)
[2017-08-14] MEDS: hydrALAZINE HCL 25 MG TAB PO SCH (21:47)
[2017-08-14] MEDS: QUEtiapine FUMARATE 25 MG TAB PO SCH (21:47)
[2017-08-14] MEDS: levETIRAcetam 500 MG TAB PO SCH (21:47)
[2017-08-14] MEDS: risperiDONE 1 MG TAB PO SCH (21:47)
[2017-08-14] MEDS: ACETAMINOPHEN 325 MG TAB PO PRN (23:50)
[2017-08-15] VITALS: BP 147/80; PULSE 79; RESP 21; TEMP 99.3; O2SAT 96
[2017-08-15 04:00] VITALS: BP 164/79; PULSE 68; RESP 22; TEMP 97.9; O2SAT 99
[2017-08-15 07:26] LABS: AUTOMATED NEUTROPHIL # 6.5 TH/MM3 (1.8-7.7); BASOPHIL # 0.1 TH/MM3 (0-0.2); BASOPHIL % 1.3 % (0.0-2.0); EOSINOPHIL # 0.2 TH/MM3 (0-0.4); EOSINOPHIL % 2.5 % (0.0-4.0); HEMATOCRIT 31.8 % (39.0-51.0); HEMOGLOBIN 10.8 GM/DL (13.0-17.0); LYMPH % 18.8 % (9.0-44.0); LYMPHOCYTE # 1.6 TH/MM3 (1.0-4.8); MEAN CELL VOLUME 81.7 FL (80.0-100.0); MEAN CORPUSCULAR HEMOGLOBIN 27.8 PG (27.0-34.0); MEAN PLATELET VOLUME 9.4 FL (7.0-11.0); MONO % 2.6 % (0.0-8.0); MONOCYTE # 0.2 TH/MM3 (0-0.9); NEUT % 74.8 % (16.0-70.0); PLATELET COUNT 252 TH/MM3 (150-450); RED BLOOD COUNT 3.89 MIL/MM3 (4.50-5.90); RED CELL DISTRIBUTION WIDTH 14.1 % (11.6-17.2); WHITE BLOOD COUNT 8.7 TH/MM3 (4.0-11.0)
[2017-08-15 07:41] VITALS: BP 160/99; PULSE 82; RESP 20; TEMP 98; O2SAT 98
[2017-08-15 07:49] LABS: BICARBONATE 25.4 MEQ/L (21.0-32.0); CALCIUM 8.6 MG/DL (8.5-10.1); CREATININE 1.32 MG/DL (0.60-1.30)
[2017-08-15] MEDS: hydrALAZINE HCL 25 MG TAB PO SCH ×2 (08:26→21:20)
[2017-08-15 08:27] LABS: BANDS 3 % (0-6); LYMPHOCYTES 13 % (9-44); METAMYELOCYTES 2 % (0-1); MONOCYTES 2 % (0-8); MYELOCYTES 1 % (0-0); NEUTROPHIL # MANUAL DIFF 7.1 TH/MM3 (1.8-7.7); POLYS (SEG NEUTROPHILS) 76 % (16-70)
[2017-08-15] MEDS: MULTIVITAMINS/MINERALS THERAPEUTIC TAB PO SCH (08:27)
[2017-08-15] MEDS: levETIRAcetam 500 MG TAB PO SCH ×2 (08:27→21:20)
[2017-08-15] MEDS: DOCUSATE SODIUM 50 MG/SENNA 8.6 MG TAB PO SCH ×2 (08:27→21:20)
[2017-08-15] MEDS: METOPROLOL TARTRATE 50 MG TAB PO SCH ×2 (08:27→21:20)
[2017-08-15] MEDS: NIFEdipine 30 MG SUSTAINED RELEASE TAB PO SCH (08:27)
[2017-08-15] MEDS: THIAMINE HCL 100 MG TAB PO SCH (08:27)
[2017-08-15] MEDS: FOLIC ACID 1 MG TAB PO SCH (08:27)
[2017-08-15] MEDS: QUEtiapine FUMARATE 25 MG TAB PO SCH ×3 (08:30→18:40)
[2017-08-15] MEDS: SODIUM CHLORIDE 0.9% FLUSH 10 ML FLUSH IV FLUSH SCH ×2 (08:31→21:28)
--- NOTE | 2017-08-15 09:25 | HHI.PR ---
Subjective Remarks in no acute distress. overall doing fine. denies pain. no seizures. d/w the PT at the bedside. Objective Vitals Vital Signs Date Time Temp Pulse Resp B/P (MAP) Pulse Ox O2 Delivery O2 Flow Rate FiO2 08/15/17 07:41 98.0 82 20 160/99 (119) 98 08/15/17 04:00 97.9 68 22 164/79 (107) 99 08/15/17 00:00 99.3 79 21 147/80 (102) 96 08/14/17 21:00 98.7 99 24 172/95 (120) 98 08/14/17 20:00 96 08/14/17 19:59 08/14/17 18:46 83 16 161/87 (111) 96 Room Air 08/14/17 16:00 76 18 174/81 (112) 96 Room Air 08/14/17 13:08 82 18 204/88 (126) 98 Room Air 08/14/17 13:08 84 18 204/88 (126) 95 Room Air 08/14/17 10:15 97.5 87 16 177/95 (122) 99 I/O 08/14/17 08/14/17 08/14/17 08/15/17 08/15/17 08/15/17 07:00 15:00 23:00 07:00 15:00 23:00 Intake Total 500 ml Output Total 600 ml Balance 500 ml -600 ml Intake IV Total 500 ml Output Urine Total 600 ml # Voids 1 2 # Bowel Movements 0 0 Result Diagram: 08/15/17 0656 08/15/17 0656 Imaging Last Impressions Chest X-Ray 08/14/17 1223 Signed Impressions: Service Date/Time: Monday, August 14, 2017 12:47 - CONCLUSION: No acute disease. Natan Mitchell MD Head CT 08/14/17 0000 Signed Impressions: Service Date/Time: Monday, August 14, 2017 13:50 - CONCLUSION: 1. 4 mm area of increased attenuation in the right posterior parietal cortex most consistent with a punctate area of parenchymal hemorrhage. This was not seen on patient's previous examinations. There is no significant mass effect associated with this. MRI imaging of the brain with contrast would be of benefit for further assessment to ensure there is no underlying lesion. Jevon Osborne MD Brain MRI 08/14/17 0000 Signed Impressions: Service Date/Time: Monday, August 14, 2017 17:43 - CONCLUSION: No underlying mass. No large/increasing hemorrhage or midline shift. Chronic right parietal cortical infarct and chronic bilateral white matter changes again noted. Ruiz Reese MD Objective Remarks GENERAL: This is a well-nourished, well-developed patient, in no apparent distress. CARDIOVASCULAR: Regular rate and regular rhythm without murmurs, gallops, or rubs. RESPIRATORY: Clear to auscultation. Breath sounds equal bilaterally. No wheezes , rales, or rhonchi. GASTROINTESTINAL: Abdomen soft, non-tender, nondistended. Normal, active bowel sounds MUSCULOSKELETAL: Extremities without clubbing, cyanosis, or edema. NEURO: Alert & Oriented x4 to person, place, time, situation. Moves all ext x4 Medications and IVs Inpatient Medications Acetaminophen (Tylenol) 650 mg Q4H PRN PO pain 1-10; Start 08/14/17 at 23:30 Albuterol/ Ipratropium (Duoneb Neb) 1 ampule Q4HR NEB PRN NEB SOB/wheezing; Start 08/14/17 at 17:30 Atorvastatin Calcium (Lipitor) 20 mg HS PO Last administered on 08/14/17at 21:47 ; Start 08/14/17 at 21:00 Bisacodyl (Dulcolax Supp) 10 mg DAILY PRN RECTAL SEVERE CONSITIPATION; Start at 15:45 Folic Acid (Folate) 1 mg DAILY PO Last administered on 08/15/17at 08:27; Start 08/15/17 at 09:00 Hydralazine HCl (Apresoline Inj) 10 mg Q4H PRN IV PUSH SBP>160, DBP>90; Start 08/14/17 at 17:15 Hydralazine HCl (Apresoline) 25 mg Q12HR PO Last administered on 08/15/17at 08: 26; Start 08/14/17 at 21:00 Lactulose (Lactulose Liq) 30 ml DAILY PRN PO SEVERE CONSITIPATION; Start at 15:45 Levetriacetam (Keppra) 500 mg BID PO Last administered on 08/15/17at 08:27; Start 08/14/17 at 21:00 Magnesium Hydroxide (Milk Of Magnesia Liq) 30 ml Q12H PRN PO Mild constipation ; Start 08/14/17 at 15:45 Metoprolol Tartrate (Lopressor) 50 mg Q12HR PO Last administered on 08/15/17 08:27; Start 08/14/17 at 21:00 Multivitamins/ Minerals Therapeutic (Theragran M Tab) 1 tab DAILY PO Last administered on 08/15/17 08:27; Start 08/15/17 at 09:00 Naloxone HCl (Narcan Inj) 0.4 mg UNSCH PRN IV PUSH SEE LABEL COMMENTS; Start at 15:45 Nifedipine (Procardia Xl) 30 mg DAILY PO Last administered on 08/15/17 08:27; Start 08/15/17 at 09:00 Ondansetron HCl (Zofran Inj) 4 mg Q6H PRN IVP NAUSEA OR VOMITING; Start at 15:45 Quetiapine Fumarate (SEROquel) 25 mg TID@0800,1300,1900 PO Last administered on 08/15/17at 08:30; Start 08/14/17 at 19:00 Risperidone (risperDAL) 1 mg HS PO Last administered on 08/14/17at 21:47; Start 08/14/17 at 21:00 Senna/Docusate Sodium (Génesis-Colace) 1 tab BID PO Last administered on 08:27; Start 08/14/17 at 21:00 Sennosides (Senokot) 17.2 mg Q12H PRN PO Moderate constipation; Start 08/14/17 at 15:45 Sodium Chloride (NS Flush) 2 ml BID IV FLUSH Last administered on 08/15/17at 08: 31; Start 08/14/17 at 21:00 Thiamine HCl (Vitamin B1) 100 mg DAILY PO Last administered on 08/15/17 08:27 ; Start 08/15/17 at 09:00 A/P Problem List: (1) Cerebral parenchymal hemorrhage ICD Code: I61.9 - Nontraumatic intracerebral hemorrhage, unspecified Status: Acute (2) HTN (hypertension) ICD Code: I10 - Essential (primary) hypertension Status: Chronic Assessment and Plan A/P Acute ICH: with hx of CVA Jun 2017 with residual left sided weakness. - Head CT images reviewed, shows 4 mm area of increased attenuation in the right posterior parietal cortex most consistent with a punctate area of parenchymal hemorrhage; this was not seen on patient's previous examinations; no significant mass effect associated with this; The patient is on aspirin 81mg daily. -MRI brain with no large/ increasing hemorrhage. -EMR reviewed: Echo 07/04/17 with systolic function low normal EF 50%, Holter 07/02/17 unremarkable with sinus rhythm, Head/Neck CTA 07/05 unremarkable -Control blood pressure, IV hydralazine 10mg q4h prn SBP > 160 -Hold patient's aspirin -neurosurgery consult appreciated; no interventions at this time; will continue with antiepileptics. -Consulted stroke navigator -consulted neurology. -Neuro checks, Seizure precautions, Monitor on telemetry -PT/OT eval- pending. LUE Tremor: suspect secondary to above. Patient with history of seizure following stroke in . - EEG pending. -seizure precautions -continue patient's Keppra 500mg bid -will consider neurology re-evaluation if seizures recur. Fall: mechanical trip and fall. Patient reports he tripped over cardboard box in his apartment. Patient has cane and walker at home. -likely contributed to ICH as above -CPK wnl -consulted PT Hypertensive Urgency with Accelerated Hypertension: BP elevated to 204/88 in the ED. S/p IV Hydralazine 10mg x1. 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 Problem Qualifiers (1) Cerebral parenchymal hemorrhage: Qualified Codes: I61.8 - Other nontraumatic intracerebral hemorrhage Adis Child MD Aug 15, 2017 09:25
[2017-08-15 11:26] VITALS: BP 172/81; PULSE 68; RESP 21; TEMP 98; O2SAT 99
[2017-08-15] MEDS: ACETAMINOPHEN 325 MG TAB PO PRN (13:35)
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
[2017-08-15] MEDS ORDERED: PHENYTOIN SODIUM 100 MG CAP PO ONE (14:30)
[2017-08-15] MEDS ORDERED: LORazepam 2 MG/ML VIAL IVS ONE (14:30)
[2017-08-15 16:00] VITALS: BP 154/84; PULSE 82; RESP 20; TEMP 98.1; O2SAT 97
[2017-08-15] MEDS ORDERED: PHENYTOIN SUSP 100 MG/4 ML CUP PO SCH (18:00)
[2017-08-15 20:00] VITALS: BP 136/66; PULSE 86; PULSE 87; RESP 18; TEMP 98.7; O2SAT 95
[2017-08-15] MEDS: ATORVASTATIN 20 MG TAB PO SCH (21:21)
[2017-08-15] MEDS: risperiDONE 1 MG TAB PO SCH (21:21)
--- NOTE | 2017-08-15 23:46 | EKG ---
Date Performed: 08/14/2017 Time Performed: 14:09:21 PTAGE: 67 years EKG: Sinus rhythm NORMAL ECG PREVIOUS TRACING : 07/02/2017 05.17 Compared to previous tracing SINUS TACHYCARDIA IS NO LONGER PRESENT DOCTOR: Wilton Acosta Interpretating Date/Time 08/15/2017 23:43:04
[2017-08-16] VITALS (8 sets, daily range): BP systolic 138–177; BP diastolic 66–95; PULSE 79–95; RESP 18; TEMP 97.7–98.3; O2SAT 95–98
[2017-08-16] MEDS: ACETAMINOPHEN 325 MG TAB PO PRN ×3 (03:39→18:49)
--- NOTE | 2017-08-16 08:50 | MG ---
cc: Paul Stevens MD ELECTROENCEPHALOGRAM RECORD NUMBER: [id number]. DESCRIPTION: This is a 67-year-old with history of previous stroke, left upper extremity jerking movements. Right-sided PLED activity occurring at approximately 1 hertz, 20-60 microvolts. Underlying theta, delta frequencies. Single lead EKG showing sinus rhythm. INTERPRETATION: Right-sided periodic lateralized epileptiform type discharges. Clinical correlation. MD DREW Herron/CARLTON , 09:00 PM , 09:10 PM
[2017-08-16] MEDS: METOPROLOL TARTRATE 50 MG TAB PO SCH ×2 (09:10→20:55)
[2017-08-16] MEDS: DOCUSATE SODIUM 50 MG/SENNA 8.6 MG TAB PO SCH ×2 (09:10→20:55)
[2017-08-16] MEDS: THIAMINE HCL 100 MG TAB PO SCH (09:10)
[2017-08-16] MEDS: hydrALAZINE HCL 25 MG TAB PO SCH ×2 (09:10→20:55)
[2017-08-16] MEDS: FOLIC ACID 1 MG TAB PO SCH (09:10)
[2017-08-16] MEDS: MULTIVITAMINS/MINERALS THERAPEUTIC TAB PO SCH (09:10)
[2017-08-16] MEDS: NIFEdipine 30 MG SUSTAINED RELEASE TAB PO SCH (09:10)
[2017-08-16] MEDS: SODIUM CHLORIDE 0.9% FLUSH 10 ML FLUSH IV FLUSH SCH ×2 (09:13→20:57)
--- NOTE | 2017-08-16 09:18 | HHI.PR ---
Review/Management Diagnosis/Plan: (1) Seizures ICD Codes: R56.9 - Unspecified convulsions Status: Chronic Plan: eeg rt pleds post-stroke sz. questionable compliance to medication recs dilantin load again increase keppra to 1000mg bid repeat eeg fall precaution keep in hospital for sz activity no driving/fall precautions (2) Occipital infarction ICD Codes: I63.9 - Cerebral infarction, unspecified Status: Chronic (3) HTN (hypertension) ICD Codes: I10 - Essential (primary) hypertension Status: Chronic (4) Dementia, vascular, mixed ICD Codes: F01.50 - Vascular dementia without behavioral disturbance Status: Chronic Subjective Subjective Comments No acute events reported No headache No chest pain No dyspnea Active Medications Current Medications Medications (Trade) Dose Ordered Sig/Blaze Route Start Time Stop Time Status Last Admin (NS Flush) 2 ml UNSCH PRN IV FLUSH 08/14/17 15:45 (NS Flush) 2 ml BID IV FLUSH 08/14/17 21:00 08/15/17 21:28 (Tylenol) 650 mg Q4H PRN PO 08/14/17 15:45 08/14/17 23:50 (Zofran Inj) 4 mg Q6H PRN IVP 08/14/17 15:45 (Narcan Inj) 0.4 mg UNSCH PRN IV PUSH 08/14/17 15:45 (Génesis-Colace) 1 tab BID PO 08/14/17 21:00 08/15/17 21:20 (Milk Of Magnesia Liq) 30 ml Q12H PRN PO 08/14/17 15:45 (Senokot) 17.2 mg Q12H PRN PO 08/14/17 15:45 (Dulcolax Supp) 10 mg DAILY PRN RECTAL 08/14/17 15:45 (Lactulose Liq) 30 ml DAILY PRN PO 08/14/17 15:45 (Apresoline Inj) 10 mg Q4H PRN IV PUSH 08/14/17 17:15 (Lipitor) 20 mg HS PO 08/14/17 21:00 08/15/17 21:21 (Folate) 1 mg DAILY PO 08/15/17 09:00 08/15/17 08:27 (Apresoline) 25 mg Q12HR PO 08/14/17 21:00 08/15/17 21:20 (Keppra) 500 mg BID PO 08/14/17 21:00 08/15/17 21:20 (Lopressor) 50 mg Q12HR PO 08/14/17 21:00 08/15/17 21:20 (Theragran M Tab) 1 tab DAILY PO 08/15/17 09:00 08/15/17 08:27 (Procardia Xl) 30 mg DAILY PO 08/15/17 09:00 08/15/17 08:27 (SEROquel) 25 mg TID@0800,1300,1900 PO 08/14/17 19:00 08/15/17 18:40 (risperDAL) 1 mg HS PO 08/14/17 21:00 08/15/17 21:21 (Vitamin B1) 100 mg DAILY PO 08/15/17 09:00 08/15/17 08:27 (Duoneb Neb) 1 ampule Q4HR NEB PRN NEB 08/14/17 17:30 (Tylenol) 650 mg Q4H PRN PO 08/14/17 23:30 08/16/17 03:39 (Dilantin Liq) 130 mg TID PO 08/15/17 18:00 08/15/17 18:43 Allergies Allergies Coded Allergies No Known Allergies (Verified Adverse Reaction, Unknown, 08/14/17) Review of Systems All other ROS: ROS reviewed as documented in chart Exam I&O / VS 08/16/17 08/16/17 08/17/17 15:00 23:00 07:00 Output Total 630 ml Balance -630 ml Output Urine Total 630 ml # Voids 1 Vital Signs Date Time Temp Pulse Resp B/P (MAP) Pulse Ox O2 Delivery O2 Flow Rate FiO2 08/16/17 08:00 98.2 86 18 177/95 (122) 97 08/16/17 04:00 98.1 84 18 138/67 (90) 96 08/16/17 04:00 79 08/16/17 00:00 98.3 83 18 141/66 (91) 96 08/16/17 00:00 84 08/15/17 20:00 98.7 86 18 136/66 (89) 95 08/15/17 20:00 87 08/15/17 16:00 98.1 82 20 154/84 (107) 97 08/15/17 11:26 98.0 68 21 172/81 (111) 99 General: Alert and Oriented, No acute distress Eye: EOMI Respiratory: Non-labored respirations Neurologic: Alert, Oriented Psychiatric: Cooperative, Appropriate mood & affect Exam Comments alert, ox 3, follows, recognizes me from yesterday, eating breakfast, eomi, left HH, reduced left nlf, reduced left ue rigidity at shoulder with reduced rom - chronic, rare tremors of left ue, can move all 4 ext to gravity Objective Micro and Labs Laboratory Tests Test 08/15/17 16:55 08/16/17 04:27 Phenytoin (Dilantin) Level 1.7 5.1 Problem Qualifiers (1) HTN (hypertension): Qualified Codes: I10 - Essential (primary) hypertension (2) Dementia, vascular, mixed: Qualified Codes: F01.51 - Vascular dementia with behavioral disturbance Paul Stevens MD Aug 16, 2017 09:18
[2017-08-16] MEDS: QUEtiapine FUMARATE 25 MG TAB PO SCH ×3 (09:20→18:43)
[2017-08-16] MEDS ORDERED: FOSPHENYTOIN INJ 1,000 MGPE in SODIUM CHLORIDE 0.9% INJ 50 ML IV ONE (10:00)
--- NOTE | 2017-08-16 11:07 | HHI.PR ---
Subjective Remarks Patient states he is feeling okay today. No seizures overnight. Dilantin level low. Loaded again with Dilantin per neurology. Objective Vitals Vital Signs Date Time Temp Pulse Resp B/P (MAP) Pulse Ox O2 Delivery O2 Flow Rate FiO2 08/16/17 08:00 98.2 86 18 177/95 (122) 97 08/16/17 04:00 98.1 84 18 138/67 (90) 96 08/16/17 04:00 79 08/16/17 00:00 98.3 83 18 141/66 (91) 96 08/16/17 00:00 84 08/15/17 20:00 98.7 86 18 136/66 (89) 95 08/15/17 20:00 87 08/15/17 16:00 98.1 82 20 154/84 (107) 97 08/15/17 11:26 98.0 68 21 172/81 (111) 99 I/O 08/15/17 08/15/17 08/15/17 08/16/17 08/16/17 08/16/17 07:00 15:00 23:00 07:00 15:00 23:00 Intake Total 360 ml 240 ml Output Total 600 ml 400 ml 930 ml Balance -600 ml -40 ml 240 ml -930 ml Intake Oral 360 ml 240 ml Output Urine Total 600 ml 400 ml 930 ml # Voids 2 1 1 # Bowel Movements 0 Result Diagram: 08/15/17 0656 08/15/17 0656 Objective Remarks GENERAL: This is a well-nourished, well-developed patient, in no apparent distress. CARDIOVASCULAR: Normal rate and regular rhythm without murmurs, gallops, or rubs. RESPIRATORY: Good respiratory efforts. Breath sounds equal and clear to auscultation bilaterally. GASTROINTESTINAL: Abdomen soft, non-tender, non-distended. Normal active bowel sounds MUSCULOSKELETAL: Extremities without cyanosis, or edema. NEURO: Alert & Oriented x4 to person, place, time, situation. Moves all ext x4 PSYCH: Appropriate mood and affect. 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 - Head CT images reviewed, shows 4 mm area of increased attenuation in the right posterior parietal cortex most consistent with a punctate area of parenchymal hemorrhage; this was not seen on patient's previous examinations; no significant mass effect associated with this; The patient is on aspirin 81mg daily. -MRI brain with no large/ increasing hemorrhage. -EMR reviewed: Echo 07/04/17 with systolic function low normal EF 50%, Holter 07/02/17 unremarkable with sinus rhythm, Head/Neck CTA 07/05 unremarkable -Continue BP control, IV hydralazine 10mg q4h prn SBP > 160 -Hold patient's aspirin -neurosurgery consult appreciated; no interventions at this time; will continue with antiepileptics. -Neurology following -Neuro checks, Seizure precautions, Monitor on telemetry -PT/OT Seizures post stroke: - EEG showing seizure activities -seizure precautions -continue patient's Keppra 500mg bid -Patient reloaded with Dilantin. Continue Dilantin and increased dose of Keppra per neurology. Fall: mechanical trip and fall. Patient reports he tripped over cardboard box in his apartment. Patient has cane and walker at home. -likely contributed to ICH as above -CPK wnl -PT Hypertensive Urgency with Accelerated Hypertension: BP elevated to 204/88 in the ED. S/p IV Hydralazine 10mg x1. -restart patient's home medications including nifedipine, hydralazine, metoprolol -continue IV Hydralazine 10mg q4h prn SBP > 160 -Monitor BP, adjust antihypertensives as needed COPD: chronic, stable, does not appear to be in exacerbation -continue duonebs prn Dementia: chronic, has hx of alcoholic dementia; patient quit drinking in Jun 2017 -appears at baseline -avoid sedating medications -monitor neuro checks DVT Prophylaxis: teds/scds; holding chemoprophylaxis with ICH as above Discharge Planning Continue to monitor for seizures inpatient per neurology recommendations. Will return to SNF when ready. Problem Qualifiers (1) Cerebral parenchymal hemorrhage: Qualified Codes: I61.8 - Other nontraumatic intracerebral hemorrhage (2) HTN (hypertension): Qualified Codes: I10 - Essential (primary) hypertension Ronald Easley MD Aug 16, 2017 11:07
[2017-08-16] MEDS: PHENYTOIN SUSP 100 MG/4 ML CUP PO SCH ×2 (14:07→18:43)
[2017-08-16] MEDS: risperiDONE 1 MG TAB PO SCH (20:55)
[2017-08-16] MEDS: ATORVASTATIN 20 MG TAB PO SCH (20:55)
[2017-08-16] MEDS: levETIRAcetam 500 MG TAB PO SCH (20:55)
[2017-08-17] VITALS (10 sets, daily range): BP systolic 120–183; BP diastolic 59–101; PULSE 77–97; RESP 18; TEMP 97.3–98.4; O2SAT 95–99
[2017-08-17] MEDS: cloNIDine HCL 0.1 MG TAB PO PRN (02:22)
[2017-08-17] MEDS: ACETAMINOPHEN 325 MG TAB PO PRN ×3 (04:43→21:15)
[2017-08-17] MEDS: QUEtiapine FUMARATE 25 MG TAB PO SCH ×3 (08:00→17:14)
[2017-08-17] MEDS: PHENYTOIN SUSP 100 MG/4 ML CUP PO SCH ×3 (08:29→17:14)
[2017-08-17] MEDS: METOPROLOL TARTRATE 50 MG TAB PO SCH ×2 (08:29→20:50)
[2017-08-17] MEDS: THIAMINE HCL 100 MG TAB PO SCH (08:29)
[2017-08-17] MEDS: DOCUSATE SODIUM 50 MG/SENNA 8.6 MG TAB PO SCH ×2 (08:29→20:47)
[2017-08-17] MEDS: FOLIC ACID 1 MG TAB PO SCH (08:29)
[2017-08-17] MEDS: MULTIVITAMINS/MINERALS THERAPEUTIC TAB PO SCH (08:29)
[2017-08-17] MEDS: hydrALAZINE HCL 25 MG TAB PO SCH ×2 (08:29→20:50)
[2017-08-17] MEDS: NIFEdipine 30 MG SUSTAINED RELEASE TAB PO SCH (08:38)
[2017-08-17] MEDS: levETIRAcetam 500 MG TAB PO SCH ×2 (08:38→20:50)
[2017-08-17] MEDS: SODIUM CHLORIDE 0.9% FLUSH 10 ML FLUSH IV FLUSH SCH ×2 (08:39→20:58)
--- NOTE | 2017-08-17 11:27 | HHI.PR ---
Subjective Remarks Patient reports he is doing okay. No new issues. Discussed with RN. No reported seizures today. Objective Vitals Vital Signs Date Time Temp Pulse Resp B/P (MAP) Pulse Ox O2 Delivery O2 Flow Rate FiO2 08/17/17 09:48 97 08/17/17 07:43 97.9 81 18 183/101 (128) 96 08/17/17 04:00 83 08/17/17 04:00 98.1 77 18 152/84 (106) 95 08/17/17 00:54 162/80 (107) 08/17/17 00:00 98.4 92 18 160/76 (104) 98 08/17/17 00:00 83 08/16/17 20:00 92 08/16/17 20:00 98.0 94 18 143/77 (99) 95 08/16/17 16:00 97.7 95 18 150/77 (101) 98 08/16/17 12:56 98.2 81 18 151/83 (105) 97 08/16/17 12:00 81 I/O 08/16/17 08/16/17 08/16/17 08/17/17 08/17/17 08/17/17 07:00 15:00 23:00 07:00 15:00 23:00 Output Total 930 ml 200 ml Balance -930 ml -200 ml Output Urine Total 930 ml 200 ml # Voids 1 2 Result Diagram: 08/15/17 0656 08/15/17 0656 Objective Remarks GENERAL: This is a well-nourished, well-developed patient, in no apparent distress. CARDIOVASCULAR: Normal rate and regular rhythm without murmurs, gallops, or rubs. RESPIRATORY: Good respiratory efforts. Breath sounds equal and clear to auscultation bilaterally. GASTROINTESTINAL: Abdomen soft, non-tender, non-distended. Normal active bowel sounds MUSCULOSKELETAL: Extremities without cyanosis, or edema. NEURO: Alert & Oriented x4 to person, place, time, situation. Moves all ext x4 PSYCH: Appropriate mood and affect. 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 - Head CT images reviewed, shows 4 mm area of increased attenuation in the right posterior parietal cortex most consistent with a punctate area of parenchymal hemorrhage; this was not seen on patient's previous examinations; no significant mass effect associated with this; The patient is on aspirin 81mg daily. -MRI brain with no large/ increasing hemorrhage. -EMR reviewed: Echo 07/04/17 with systolic function low normal EF 50%, Holter 07/02/17 unremarkable with sinus rhythm, Head/Neck CTA 07/05 unremarkable -Continue BP control, IV hydralazine 10mg q4h prn SBP > 160 -Hold patient's aspirin -neurosurgery consult appreciated; no interventions at this time; will continue with antiepileptics. -Neurology following -Neuro checks, Seizure precautions, Monitor on telemetry -PT/OT Seizures post stroke: - EEG showing seizure activities -seizure precautions -continue patient's Keppra 500mg bid -Patient reloaded with Dilantin. Continue Dilantin and increased dose of Keppra per neurology. -Depakote added today. Fall: mechanical trip and fall. Patient reports he tripped over cardboard box in his apartment. Patient has cane and walker at home. -likely contributed to ICH as above -CPK wnl -PT Hypertensive Urgency with Accelerated Hypertension: BP elevated to 204/88 in the ED. S/p IV Hydralazine 10mg x1. -restart patient's home medications including nifedipine, hydralazine, metoprolol -continue IV Hydralazine 10mg q4h prn SBP > 160 -Monitor BP, adjust antihypertensives as needed COPD: chronic, stable, does not appear to be in exacerbation -continue duonebs prn Dementia: chronic, has hx of alcoholic dementia; patient quit drinking in Jun 2017 -appears at baseline -avoid sedating medications -monitor neuro checks DVT Prophylaxis: teds/scds; holding chemoprophylaxis with ICH as above Discharge Planning Continue to monitor for seizures inpatient per neurology recommendations. Antiepileptic medication titration per neurology Will return to SNF when ready. Problem Qualifiers (1) Cerebral parenchymal hemorrhage: Qualified Codes: I61.8 - Other nontraumatic intracerebral hemorrhage (2) HTN (hypertension): Qualified Codes: I10 - Essential (primary) hypertension Rimpel,Ricardy MD Aug 17, 2017 11:27
--- NOTE | 2017-08-17 14:29 | HHI.PR ---
Review/Management Diagnosis/Plan: (1) Seizures ICD Codes: R56.9 - Unspecified convulsions Status: Chronic Plan: 08/17 eeg reduced rt pleds post-stroke sz. questionable compliance to medication recs add depakote repeat eeg for tomorrow fall precaution keep in hospital for sz activity no driving/fall precautions (2) Occipital infarction ICD Codes: I63.9 - Cerebral infarction, unspecified Status: Chronic (3) HTN (hypertension) ICD Codes: I10 - Essential (primary) hypertension Status: Chronic (4) Dementia, vascular, mixed ICD Codes: F01.50 - Vascular dementia without behavioral disturbance Status: Chronic Subjective Subjective Comments No acute events reported No headache No chest pain No dyspnea Active Medications Current Medications Medications (Trade) Dose Ordered Sig/Blaze Route Start Time Stop Time Status Last Admin (NS Flush) 2 ml UNSCH PRN IV FLUSH 08/14/17 15:45 (NS Flush) 2 ml BID IV FLUSH 08/14/17 21:00 08/17/17 08:39 (Tylenol) 650 mg Q4H PRN PO 08/14/17 15:45 08/16/17 18:49 (Zofran Inj) 4 mg Q6H PRN IVP 08/14/17 15:45 (Narcan Inj) 0.4 mg UNSCH PRN IV PUSH 08/14/17 15:45 (Génesis-Colace) 1 tab BID PO 08/14/17 21:00 08/17/17 08:29 (Milk Of Magnesia Liq) 30 ml Q12H PRN PO 08/14/17 15:45 (Senokot) 17.2 mg Q12H PRN PO 08/14/17 15:45 (Dulcolax Supp) 10 mg DAILY PRN RECTAL 08/14/17 15:45 (Lactulose Liq) 30 ml DAILY PRN PO 08/14/17 15:45 (Lipitor) 20 mg HS PO 08/14/17 21:00 08/16/17 20:55 (Folate) 1 mg DAILY PO 08/15/17 09:00 08/17/17 08:29 (Apresoline) 25 mg Q12HR PO 08/14/17 21:00 08/17/17 08:29 (Lopressor) 50 mg Q12HR PO 08/14/17 21:00 08/17/17 08:29 (Theragran M Tab) 1 tab DAILY PO 08/15/17 09:00 08/17/17 08:29 (Procardia Xl) 30 mg DAILY PO 08/15/17 09:00 08/17/17 08:38 (SEROquel) 25 mg TID@0800,1300,1900 PO 08/14/17 19:00 08/17/17 12:23 (risperDAL) 1 mg HS PO 08/14/17 21:00 08/16/17 20:55 (Vitamin B1) 100 mg DAILY PO 08/15/17 09:00 08/17/17 08:29 (Duoneb Neb) 1 ampule Q4HR NEB PRN NEB 08/14/17 17:30 (Tylenol) 650 mg Q4H PRN PO 08/14/17 23:30 08/17/17 13:49 (Keppra) 1,000 mg BID PO 08/16/17 21:00 08/17/17 08:38 (Dilantin Liq) 150 mg TID PO 08/16/17 13:00 08/17/17 12:24 (Catapres) 0.1 mg Q6H PRN PO 08/17/17 02:15 08/17/17 02:22 Allergies Allergies Coded Allergies No Known Allergies (Verified Adverse Reaction, Unknown, 08/14/17) Review of Systems All other ROS: ROS reviewed as documented in chart Exam I&O / VS Vital Signs Date Time Temp Pulse Resp B/P (MAP) Pulse Ox O2 Delivery O2 Flow Rate FiO2 08/17/17 11:57 98.3 78 18 120/59 (79) 96 08/17/17 09:48 97 08/17/17 07:43 97.9 81 18 183/101 (128) 96 08/17/17 04:00 83 08/17/17 04:00 98.1 77 18 152/84 (106) 95 08/17/17 00:54 162/80 (107) 08/17/17 00:00 98.4 92 18 160/76 (104) 98 08/17/17 00:00 83 08/16/17 20:00 92 08/16/17 20:00 98.0 94 18 143/77 (99) 95 08/16/17 16:00 97.7 95 18 150/77 (101) 98 General: Alert and Oriented, No acute distress Eye: EOMI Respiratory: Non-labored respirations Neurologic: Alert, Oriented Psychiatric: Cooperative, Appropriate mood & affect Exam Comments sleeping but easily alerts, ox 3, follows, eomi, left HH, reduced left nlf, reduced left ue rigidity at shoulder, no tremors, can move all 4 ext to gravity Objective Micro and Labs Laboratory Tests Test 08/17/17 03:05 Phenytoin (Dilantin) Level 15.4 Problem Qualifiers (1) HTN (hypertension): Qualified Codes: I10 - Essential (primary) hypertension (2) Dementia, vascular, mixed: Qualified Codes: F01.51 - Vascular dementia with behavioral disturbance Paul Stevens MD Aug 17, 2017 14:29
[2017-08-17] MEDS: VALPROATE INJ 500 MG in SODIUM CHLORIDE 0.9% INJ 100 ML IV SCH (18:32)
[2017-08-17] MEDS: risperiDONE 1 MG TAB PO SCH (20:50)
[2017-08-17] MEDS: ATORVASTATIN 20 MG TAB PO SCH (20:50)
--- NOTE | 2017-08-17 20:56 | MG ---
cc: Paul Stevens MD EEG RECORD NUMBER: [id number]. Right-sided PLEDs occurring, less voltage, less intense than previous EEG periods where there were none. Single lead EKG showing sinus rhythm, reduced driving with photic stimulation, better development of theta and alpha frequencies in this EEG. INTERPRETATION: Improved right-sided periodic lateralized epileptiform discharges, but still with some persistence. Clinical correlation. MD DREW Herron/JEANETTE , 08:44 PM , 08:54 PM
[2017-08-18] VITALS (10 sets, daily range): BP systolic 142–185; BP diastolic 84–89; PULSE 74–98; RESP 18–20; TEMP 97.1–98.3; O2SAT 95–99
[2017-08-18] MEDS: cloNIDine HCL 0.1 MG TAB PO PRN ×3 (00:16→12:39)
[2017-08-18] MEDS ORDERED: LORazepam 2 MG/ML VIAL IV PUSH ONE (01:15)
[2017-08-18] MEDS: VALPROATE INJ 500 MG in SODIUM CHLORIDE 0.9% INJ 100 ML IV SCH ×3 (01:16→17:12)
[2017-08-18] MEDS: MULTIVITAMINS/MINERALS THERAPEUTIC TAB PO SCH (08:49)
[2017-08-18] MEDS: FOLIC ACID 1 MG TAB PO SCH (08:49)
[2017-08-18] MEDS: NIFEdipine 30 MG SUSTAINED RELEASE TAB PO SCH (08:49)
[2017-08-18] MEDS: levETIRAcetam 500 MG TAB PO SCH (08:49)
[2017-08-18] MEDS: METOPROLOL TARTRATE 50 MG TAB PO SCH ×2 (08:50→21:31)
[2017-08-18] MEDS: THIAMINE HCL 100 MG TAB PO SCH (08:50)
[2017-08-18] MEDS: DOCUSATE SODIUM 50 MG/SENNA 8.6 MG TAB PO SCH ×2 (08:50→21:30)
[2017-08-18] MEDS: hydrALAZINE HCL 25 MG TAB PO SCH ×2 (08:50→21:31)
[2017-08-18] MEDS: QUEtiapine FUMARATE 25 MG TAB PO SCH (08:50)
[2017-08-18] MEDS: ACETAMINOPHEN 325 MG TAB PO PRN (08:50)
[2017-08-18] MEDS: SODIUM CHLORIDE 0.9% FLUSH 10 ML FLUSH IV FLUSH SCH ×2 (08:51→21:30)
[2017-08-18] MEDS: PHENYTOIN SUSP 100 MG/4 ML CUP PO SCH ×3 (08:51→17:12)
--- NOTE | 2017-08-18 12:32 | HHI.PR ---
Review/Management Diagnosis/Plan: (1) Seizures ICD Codes: R56.9 - Unspecified convulsions Status: Chronic Plan: 08/17 eeg reduced rt pleds post-stroke sz. questionable compliance to medication dil level in range keppra/dilantin/depakote recs somnolent; change seroquel to prn repeat eeg today fall precaution keep in hospital for sz activity will likely need inpt rehab no driving/fall precautions (2) Occipital infarction ICD Codes: I63.9 - Cerebral infarction, unspecified Status: Chronic (3) HTN (hypertension) ICD Codes: I10 - Essential (primary) hypertension Status: Chronic (4) Dementia, vascular, mixed ICD Codes: F01.50 - Vascular dementia without behavioral disturbance Status: Chronic Subjective Subjective Comments No acute events reported No headache No chest pain No dyspnea Active Medications Current Medications Medications (Trade) Dose Ordered Sig/Blaze Route Start Time Stop Time Status Last Admin (NS Flush) 2 ml UNSCH PRN IV FLUSH 08/14/17 15:45 08/18/17 01:19 (NS Flush) 2 ml BID IV FLUSH 08/14/17 21:00 08/18/17 08:51 (Tylenol) 650 mg Q4H PRN PO 08/14/17 15:45 08/16/17 18:49 (Zofran Inj) 4 mg Q6H PRN IVP 08/14/17 15:45 (Narcan Inj) 0.4 mg UNSCH PRN IV PUSH 08/14/17 15:45 (Génesis-Colace) 1 tab BID PO 08/14/17 21:00 08/18/17 08:50 (Milk Of Magnesia Liq) 30 ml Q12H PRN PO 08/14/17 15:45 (Senokot) 17.2 mg Q12H PRN PO 08/14/17 15:45 (Dulcolax Supp) 10 mg DAILY PRN RECTAL 08/14/17 15:45 (Lactulose Liq) 30 ml DAILY PRN PO 08/14/17 15:45 (Lipitor) 20 mg HS PO 08/14/17 21:00 08/17/17 20:50 (Folate) 1 mg DAILY PO 08/15/17 09:00 08/18/17 08:49 (Apresoline) 25 mg Q12HR PO 08/14/17 21:00 08/18/17 08:50 (Lopressor) 50 mg Q12HR PO 08/14/17 21:00 08/18/17 08:50 (Theragran M Tab) 1 tab DAILY PO 08/15/17 09:00 08/18/17 08:49 (Procardia Xl) 30 mg DAILY PO 08/15/17 09:00 08/18/17 08:49 (SEROquel) 25 mg TID@0800,1300,1900 PO 08/14/17 19:00 08/18/17 08:50 (risperDAL) 1 mg HS PO 08/14/17 21:00 08/17/17 20:50 (Vitamin B1) 100 mg DAILY PO 08/15/17 09:00 08/18/17 08:50 (Duoneb Neb) 1 ampule Q4HR NEB PRN NEB 08/14/17 17:30 (Tylenol) 650 mg Q4H PRN PO 08/14/17 23:30 08/18/17 08:50 (Keppra) 1,000 mg BID PO 08/16/17 21:00 08/18/17 08:49 (Dilantin Liq) 150 mg TID PO 08/16/17 13:00 08/18/17 08:51 (Catapres) 0.1 mg Q6H PRN PO 08/17/17 02:15 08/18/17 06:32 Valproate Sodium 500 mg/Sodium Chloride 105 ml @ 105 mls/hr Q8H IV 08/17/17 17:00 08/18/17 08:51 Allergies Allergies Coded Allergies No Known Allergies (Verified Adverse Reaction, Unknown, 08/14/17) Review of Systems All other ROS: ROS reviewed as documented in chart Exam I&O / VS 08/18/17 08/18/17 08/19/17 15:00 23:00 07:00 Output Total 200 ml Balance -200 ml Output Urine Total 200 ml Vital Signs Date Time Temp Pulse Resp B/P (MAP) Pulse Ox O2 Delivery O2 Flow Rate FiO2 08/18/17 12:19 98.0 75 20 172/87 (115) 98 08/18/17 08:37 98.3 83 20 169/85 (113) 98 08/18/17 08:21 87 08/18/17 04:00 97.1 98 20 177/84 (115) 95 08/18/17 04:00 92 08/18/17 00:00 97.3 96 18 142/89 (106) 99 08/18/17 00:00 84 08/17/17 20:00 97.3 96 18 162/87 (112) 99 08/17/17 16:18 83 08/17/17 16:00 98.4 83 18 181/86 (117) 97 General: Alert and Oriented, No acute distress Eye: EOMI Respiratory: Non-labored respirations Neurologic: Alert, Oriented Psychiatric: Cooperative, Appropriate mood & affect Exam Comments sleeping but easily alerts, ox 2, follows, eomi, left HH, reduced left nlf, reduced left ue rigidity at shoulder, no tremors, can move all 4 ext to gravity Problem Qualifiers (1) HTN (hypertension): Qualified Codes: I10 - Essential (primary) hypertension (2) Dementia, vascular, mixed: Qualified Codes: F01.51 - Vascular dementia with behavioral disturbance Paul Stevens MD Aug 18, 2017 12:32
[2017-08-18] MEDS ORDERED: QUEtiapine FUMARATE 25 MG TAB PO PRN (13:00)
[2017-08-18] MEDS ORDERED: PHENobarbital INJ 90 MG in SODIUM CHLORIDE 0.9% INJ 50 ML IV SCH (14:15)
[2017-08-18] MEDS: PHENobarbital SOD 130 MG/ML VIAL IV PUSH SCH ×2 (15:31→21:30)
--- NOTE | 2017-08-18 15:50 | HHI.PR ---
Subjective Remarks Patient became combative earlier this morning and required restraints. Last EEG still showing seizure activities. He is awake this morning reports that he is doing okay. He is alert and oriented. He does remember feeling confused earlier this morning. Objective Vitals Vital Signs Date Time Temp Pulse Resp B/P (MAP) Pulse Ox O2 Delivery O2 Flow Rate FiO2 08/18/17 12:19 98.0 75 20 172/87 (115) 98 08/18/17 08:37 98.3 83 20 169/85 (113) 98 08/18/17 08:21 87 08/18/17 04:00 97.1 98 20 177/84 (115) 95 08/18/17 04:00 92 08/18/17 00:00 97.3 96 18 142/89 (106) 99 08/18/17 00:00 84 08/17/17 20:00 97.3 96 18 162/87 (112) 99 08/17/17 16:18 83 08/17/17 16:00 98.4 83 18 181/86 (117) 97 I/O 08/17/17 08/17/17 08/17/17 08/18/17 08/18/17 08/18/17 06:59 14:59 22:59 06:59 14:59 22:59 Intake Total 105 ml Output Total 200 ml 200 ml Balance -200 ml -95 ml IV Total 105 ml Output Urine Total 200 ml 200 ml # Voids 2 3 # Bowel Movements 3 Result Diagram: 08/15/17 0656 08/15/17 0656 Objective Remarks GENERAL: This is a well-nourished, well-developed patient, in no apparent distress. CARDIOVASCULAR: Normal rate and regular rhythm without murmurs, gallops, or rubs. RESPIRATORY: Good respiratory efforts. Breath sounds equal and clear to auscultation bilaterally. GASTROINTESTINAL: Abdomen soft, non-tender, non-distended. Normal active bowel sounds MUSCULOSKELETAL: Extremities without cyanosis, or edema. NEURO: Alert & Oriented x4 to person, place, time, situation. Moves all ext x4 PSYCH: Appropriate mood and affect. A/P Problem List: (1) Cerebral parenchymal hemorrhage ICD Code: I61.9 - Nontraumatic intracerebral hemorrhage, unspecified Status: Acute (2) HTN (hypertension) ICD Code: I10 - Essential (primary) hypertension Status: Chronic (3) Seizures ICD Code: R56.9 - Unspecified convulsions Status: Chronic Assessment and Plan 67 Y/O male with: Acute ICH: with hx of CVA Jun 2017 with residual left sided weakness. - Head CT images reviewed, shows 4 mm area of increased attenuation in the right posterior parietal cortex most consistent with a punctate area of parenchymal hemorrhage; this was not seen on patient's previous examinations; no significant mass effect associated with this; The patient is on aspirin 81mg daily. -MRI brain with no large/ increasing hemorrhage. -EMR reviewed: Echo 07/04/17 with systolic function low normal EF 50%, Holter 07/02/17 unremarkable with sinus rhythm, Head/Neck CTA 07/05 unremarkable -Continue BP control, IV hydralazine 10mg q4h prn SBP > 160 -Hold patient's aspirin -neurosurgery consult appreciated; -no interventions at this time; will continue with antiepileptics. -Neurology following and titrating seizure medications. -Neuro checks, Seizure precautions, Monitor on telemetry -PT/OT Seizures post stroke: - EEG showing seizure activities -seizure precautions -continue patient's Keppra 500mg bid -Patient reloaded with Dilantin. Continue Dilantin and increased dose of Keppra per neurology. Phenobarbital added per neurology -Depakote Fall: mechanical trip and fall. Patient reports he tripped over cardboard box in his apartment. Patient has cane and walker at home. -likely contributed to ICH as above -CPK wnl -PT Hypertensive Urgency with Accelerated Hypertension: BP elevated to 204/88 in the ED. S/p IV Hydralazine 10mg x1. -restart patient's home medications including nifedipine, hydralazine, metoprolol -continue IV Hydralazine 10mg q4h prn SBP > 160 -Increase Nifedipine to 60 mg. COPD: chronic, stable, does not appear to be in exacerbation -continue duonebs prn Dementia: Chronic, has hx of alcoholic dementia; patient quit drinking in Jun 2017 -appears at baseline -avoid sedating medications -monitor neuro checks DVT Prophylaxis: teds/scds; holding chemoprophylaxis with ICH as above Discharge Planning Continue to monitor for seizures inpatient per neurology recommendations. Antiepileptic medication titration per neurology Will return to SNF when ready. Problem Qualifiers (1) Cerebral parenchymal hemorrhage: Qualified Codes: I61.8 - Other nontraumatic intracerebral hemorrhage (2) HTN (hypertension): Qualified Codes: I10 - Essential (primary) hypertension Ronald Easley MD Aug 18, 2017 15:50
[2017-08-18 18:31] LABS: PHENYTOIN (DILANTIN) 16.3 MCG/ML (10.0-20.0)
--- NOTE | 2017-08-18 21:20 | MG ---
cc: Paul Stevens MD EEG RECORD #[id number] A 67-year-old, history of PLEDs. Low voltage right-sided PLEDs occurring off and on at about 1 Hz. Theta and delta frequency suggestive of sleep state. Limited driving with photic stimulation. Single 12-lead EKG showing sinus rhythm. PLED activity milder and more in the posterior right hemisphere. INTERPRETATION: ____ right posterior PLED activity in sleep state. Clinical correlation. Paul Stevens MD MG/rt , 09:03 PM , 09:19 PM
[2017-08-18] MEDS: ATORVASTATIN 20 MG TAB PO SCH (21:31)
[2017-08-18] MEDS: risperiDONE 1 MG TAB PO SCH (21:31)
[2017-08-19] VITALS (12 sets, daily range): BP systolic 161–192; BP diastolic 81–98; PULSE 72–110; RESP 18–19; TEMP 97.6–98.6; O2SAT 95–100
[2017-08-19] MEDS: VALPROATE INJ 500 MG in SODIUM CHLORIDE 0.9% INJ 100 ML IV SCH ×3 (00:46→16:23)
[2017-08-19] MEDS: cloNIDine HCL 0.1 MG TAB PO PRN ×2 (04:27→16:27)
[2017-08-19] MEDS: MULTIVITAMINS/MINERALS THERAPEUTIC TAB PO SCH (08:27)
[2017-08-19] MEDS: FOLIC ACID 1 MG TAB PO SCH (08:27)
[2017-08-19] MEDS: PHENYTOIN SUSP 100 MG/4 ML CUP PO SCH ×3 (08:27→17:44)
[2017-08-19] MEDS: THIAMINE HCL 100 MG TAB PO SCH (08:27)
[2017-08-19] MEDS: DOCUSATE SODIUM 50 MG/SENNA 8.6 MG TAB PO SCH ×2 (08:28→20:32)
[2017-08-19] MEDS: SODIUM CHLORIDE 0.9% FLUSH 10 ML FLUSH IV FLUSH SCH ×2 (08:28→20:32)
[2017-08-19] MEDS: hydrALAZINE HCL 25 MG TAB PO SCH ×2 (08:28→17:50)
[2017-08-19] MEDS: METOPROLOL TARTRATE 50 MG TAB PO SCH ×2 (08:28→20:32)
[2017-08-19] MEDS: PHENobarbital SOD 130 MG/ML VIAL IV PUSH SCH ×2 (08:28→20:33)
[2017-08-19] MEDS ORDERED: NIFEdipine 30 MG SUSTAINED RELEASE TAB PO SCH (09:00)
--- NOTE | 2017-08-19 11:00 | HHI.PR ---
Review/Management Diagnosis/Plan: (1) Seizures ICD Codes: R56.9 - Unspecified convulsions Status: Chronic Plan: 08/17 eeg reduced rt pleds post-stroke sz. questionable compliance to medication dil level in range keppra/dilantin/depakote recs per rn needs restraint as ge pulss and tries to get out bed when they remove will change to risperdal 1mg bid d/c seroquel repeat eeg today fall precaution inpt rehab next 1-2 days no driving/fall precautions (2) Occipital infarction ICD Codes: I63.9 - Cerebral infarction, unspecified Status: Chronic (3) HTN (hypertension) ICD Codes: I10 - Essential (primary) hypertension Status: Chronic (4) Dementia, vascular, mixed ICD Codes: F01.50 - Vascular dementia without behavioral disturbance Status: Chronic Subjective Subjective Comments No acute events reported No headache No chest pain No dyspnea Active Medications Current Medications Medications (Trade) Dose Ordered Sig/Blaze Route Start Time Stop Time Status Last Admin (NS Flush) 2 ml UNSCH PRN IV FLUSH 08/14/17 15:45 08/18/17 01:19 (NS Flush) 2 ml BID IV FLUSH 08/14/17 21:00 08/19/17 08:28 (Tylenol) 650 mg Q4H PRN PO 08/14/17 15:45 08/16/17 18:49 (Zofran Inj) 4 mg Q6H PRN IVP 08/14/17 15:45 (Narcan Inj) 0.4 mg UNSCH PRN IV PUSH 08/14/17 15:45 (Génesis-Colace) 1 tab BID PO 08/14/17 21:00 08/19/17 08:28 (Milk Of Magnesia Liq) 30 ml Q12H PRN PO 08/14/17 15:45 (Senokot) 17.2 mg Q12H PRN PO 08/14/17 15:45 (Dulcolax Supp) 10 mg DAILY PRN RECTAL 08/14/17 15:45 (Lactulose Liq) 30 ml DAILY PRN PO 08/14/17 15:45 (Lipitor) 20 mg HS PO 08/14/17 21:00 08/18/17 21:31 (Folate) 1 mg DAILY PO 08/15/17 09:00 08/19/17 08:27 (Apresoline) 25 mg Q12HR PO 08/14/17 21:00 08/19/17 08:28 (Lopressor) 50 mg Q12HR PO 08/14/17 21:00 08/19/17 08:28 (Theragran M Tab) 1 tab DAILY PO 08/15/17 09:00 08/19/17 08:27 (risperDAL) 1 mg HS PO 08/14/17 21:00 08/18/17 21:31 (Vitamin B1) 100 mg DAILY PO 08/15/17 09:00 08/19/17 08:27 (Duoneb Neb) 1 ampule Q4HR NEB PRN NEB 08/14/17 17:30 (Tylenol) 650 mg Q4H PRN PO 08/14/17 23:30 08/18/17 08:50 (Catapres) 0.1 mg Q6H PRN PO 08/17/17 02:15 08/19/17 04:27 Valproate Sodium 500 mg/Sodium Chloride 105 ml @ 105 mls/hr Q8H IV 08/17/17 17:00 08/19/17 08:28 (Dilantin Liq) 130 mg TID PO 08/18/17 13:00 08/19/17 08:27 (SEROquel) 25 mg TID@0800,1300,1900 PRN PO 08/18/17 13:00 08/19/17 08:28 (Luminal Inj) 90 mg BID IV PUSH 08/18/17 15:00 08/19/17 08:28 (Procardia Xl) 60 mg DAILY PO 08/19/17 09:00 08/19/17 08:28 Allergies Allergies Coded Allergies No Known Allergies (Verified Adverse Reaction, Unknown, 08/14/17) Review of Systems All other ROS: ROS reviewed as documented in chart Exam I&O / VS Vital Signs Date Time Temp Pulse Resp B/P (MAP) Pulse Ox O2 Delivery O2 Flow Rate FiO2 08/19/17 08:37 97.9 77 18 162/95 (117) 95 08/19/17 06:45 72 161/86 (111) 08/19/17 05:03 97.6 77 18 192/95 (127) 96 08/19/17 04:26 79 08/19/17 00:49 97.8 81 18 169/86 (113) 97 08/19/17 00:01 86 08/18/17 21:09 98.3 85 18 185/84 (117) 98 08/18/17 20:01 90 08/18/17 17:10 84 08/18/17 16:10 97.7 80 18 144/84 (104) 97 08/18/17 12:30 74 08/18/17 12:19 98.0 75 20 172/87 (115) 98 General: Alert and Oriented, No acute distress Eye: EOMI Respiratory: Non-labored respirations Neurologic: Alert, Oriented Psychiatric: Cooperative, Appropriate mood & affect Exam Comments more alert, ox 3, follows, calm, eomi, left HH, reduced left nlf, reduced left ue rigidity at shoulder, no tremors, can move all 4 ext to gravity Objective Micro and Labs Laboratory Tests Test 08/18/17 17:10 08/19/17 05:33 Phenytoin (Dilantin) Level 16.3 15.0 Valproic Acid (Depakene) Level 36 43 Problem Qualifiers (1) HTN (hypertension): Qualified Codes: I10 - Essential (primary) hypertension (2) Dementia, vascular, mixed: Qualified Codes: F01.51 - Vascular dementia with behavioral disturbance Paul Stevens MD Aug 19, 2017 11:00
[2017-08-19] MEDS: risperiDONE 1 MG TAB PO SCH ×2 (12:18→20:32)
--- NOTE | 2017-08-19 15:38 | HHI.PR ---
Subjective Remarks Patient still having intermittent bursts of agitation requiring restraints. On my evaluation, he states he is doing okay. Confused. Objective Vitals Vital Signs Date Time Temp Pulse Resp B/P (MAP) Pulse Ox O2 Delivery O2 Flow Rate FiO2 08/19/17 13:11 80 08/19/17 12:13 98.6 80 18 167/98 (121) 99 08/19/17 08:37 97.9 77 18 162/95 (117) 95 08/19/17 08:00 110 08/19/17 06:45 72 161/86 (111) 08/19/17 05:03 97.6 77 18 192/95 (127) 96 08/19/17 04:26 79 08/19/17 00:49 97.8 81 18 169/86 (113) 97 08/19/17 00:01 86 08/18/17 21:09 98.3 85 18 185/84 (117) 98 08/18/17 20:01 90 08/18/17 17:10 84 08/18/17 16:10 97.7 80 18 144/84 (104) 97 I/O 08/18/17 08/18/17 08/18/17 08/19/17 08/19/17 08/19/17 07:00 15:00 23:00 07:00 15:00 23:00 Intake Total 105 ml 585 ml Output Total 200 ml 201 ml 350 ml Balance -95 ml 384 ml -350 ml Intake Oral 480 ml IV Total 105 ml 105 ml Output Urine Total 200 ml 201 ml 350 ml # Voids 3 1 1 # Bowel Movements 3 1 1 Result Diagram: 08/15/17 0656 08/15/17 06 Objective Remarks GENERAL: This is a well-nourished, well-developed patient, in no apparent distress. CARDIOVASCULAR: Normal rate and regular rhythm without murmurs, gallops, or rubs. RESPIRATORY: Good respiratory efforts. Breath sounds equal and clear to auscultation bilaterally. GASTROINTESTINAL: Abdomen soft, non-tender, non-distended. Normal active bowel sounds MUSCULOSKELETAL: Extremities without cyanosis, or edema. NEURO: Alert & Oriented to self and place only. 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 - Head CT images reviewed, shows 4 mm area of increased attenuation in the right posterior parietal cortex most consistent with a punctate area of parenchymal hemorrhage; this was not seen on patient's previous examinations; no significant mass effect associated with this -MRI brain with no large/ increasing hemorrhage. -EMR reviewed: Echo 07/04/17 with systolic function low normal EF 50%, Holter 07/02/17 unremarkable with sinus rhythm, Head/Neck CTA 07/05 unremarkable -neurosurgery consult appreciated; -no interventions at this time; will continue with antiepileptics. -Neurology following and titrating seizure medications. -Neuro checks, Seizure precautions, Monitor on telemetry -PT/OT Seizures post stroke: - EEG showing seizure activities -seizure precautions -continue patient's Keppra 500mg bid -Patient reloaded with Dilantin. Continue Dilantin and increased dose of Keppra per neurology. Phenobarbital added per neurology -Depakote -Repeat EEG per neurology Fall: mechanical trip and fall. Patient reports he tripped over cardboard box in his apartment. Patient has cane and walker at home. -likely contributed to ICH as above -CPK wnl -PT Hypertensive Urgency with Accelerated Hypertension: BP elevated to 204/88 in the ED. S/p IV Hydralazine 10mg x1. -Continue patient's home medications including nifedipine, hydralazine, metoprolol -continue IV Hydralazine 10mg q4h prn SBP > 160 -Blood pressure still uncontrolled. Nifedipine was increased yesterday to 60 mg. -Increase hydralazine to 50 mg every 8 hours. - Clonidine as needed COPD: chronic, stable, does not appear to be in exacerbation -continue duonebs prn Dementia: Chronic, has hx of alcoholic dementia; patient quit drinking in Jun 2017 -Intermittent agitation. Seroquel changed to Risperdal per neurology -monitor neuro checks DVT Prophylaxis: teds/scds; holding chemoprophylaxis with ICH as above Discharge Planning Continue to monitor for seizures inpatient per neurology recommendations. Antiepileptic medication titration per neurology Will return to SNF when cleared by neuro. He may need a dementia unit. Problem Qualifiers (1) Cerebral parenchymal hemorrhage: Qualified Codes: I61.8 - Other nontraumatic intracerebral hemorrhage (2) HTN (hypertension): Qualified Codes: I10 - Essential (primary) hypertension Ronald Easley MD Aug 19, 2017 15:38
[2017-08-19] MEDS: ATORVASTATIN 20 MG TAB PO SCH (20:32)
[2017-08-20] VITALS (7 sets, daily range): BP systolic 156–196; BP diastolic 79–97; PULSE 75–101; RESP 18; TEMP 97.3–98.7; O2SAT 95–99
[2017-08-20] MEDS: VALPROATE INJ 500 MG in SODIUM CHLORIDE 0.9% INJ 100 ML IV SCH ×3 (01:10→16:56)
[2017-08-20 08:03] LABS: HEMATOCRIT 34.1 % (39.0-51.0); HEMOGLOBIN 11.4 GM/DL (13.0-17.0); MEAN CELL VOLUME 81.6 FL (80.0-100.0); MEAN CORPUSCULAR HEMOGLOBIN 27.2 PG (27.0-34.0); MEAN CORPUSCULAR HGB CONC 33.4 % (32.0-36.0); MEAN PLATELET VOLUME 9.4 FL (7.0-11.0); PLATELET COUNT 252 TH/MM3 (150-450); RED BLOOD COUNT 4.17 MIL/MM3 (4.50-5.90); RED CELL DISTRIBUTION WIDTH 13.9 % (11.6-17.2)
[2017-08-20 08:30] LABS: CREATININE 1.31 MG/DL (0.60-1.30)
[2017-08-20 08:37] LABS: BICARBONATE 25.1 MEQ/L (21.0-32.0); CALCIUM 8.5 MG/DL (8.5-10.1); PHENYTOIN (DILANTIN) 16.7 MCG/ML (10.0-20.0)
[2017-08-20] MEDS: NIFEdipine 90 MG SUSTAINED RELEASE TAB PO SCH (09:00)
[2017-08-20] MEDS: SODIUM CHLORIDE 0.9% FLUSH 10 ML FLUSH IV FLUSH SCH ×2 (09:00→21:27)
--- NOTE | 2017-08-20 09:21 | HHI.PR ---
Review/Management Diagnosis/Plan: (1) Seizures ICD Codes: R56.9 - Unspecified convulsions Status: Chronic Plan: 08/17 eeg reduced rt pleds post-stroke sz. questionable compliance to medication dil level in range phb/dilantin/depakote recs eeg 08/19-improved continue 3 sz meds on risperdal 1mg bid fall precaution inpt rehab planning no driving/fall precautions (2) Occipital infarction ICD Codes: I63.9 - Cerebral infarction, unspecified Status: Chronic (3) HTN (hypertension) ICD Codes: I10 - Essential (primary) hypertension Status: Chronic (4) Dementia, vascular, mixed ICD Codes: F01.50 - Vascular dementia without behavioral disturbance Status: Chronic Subjective Subjective Comments No acute events reported No headache No chest pain No dyspnea Active Medications Current Medications Medications (Trade) Dose Ordered Sig/Blaze Route Start Time Stop Time Status Last Admin (NS Flush) 2 ml UNSCH PRN IV FLUSH 08/14/17 15:45 08/18/17 01:19 (NS Flush) 2 ml BID IV FLUSH 08/14/17 21:00 08/19/17 20:32 (Tylenol) 650 mg Q4H PRN PO 08/14/17 15:45 08/16/17 18:49 (Zofran Inj) 4 mg Q6H PRN IVP 08/14/17 15:45 (Narcan Inj) 0.4 mg UNSCH PRN IV PUSH 08/14/17 15:45 (Génesis-Colace) 1 tab BID PO 08/14/17 21:00 08/19/17 20:32 (Milk Of Magnesia Liq) 30 ml Q12H PRN PO 08/14/17 15:45 (Senokot) 17.2 mg Q12H PRN PO 08/14/17 15:45 (Dulcolax Supp) 10 mg DAILY PRN RECTAL 08/14/17 15:45 (Lactulose Liq) 30 ml DAILY PRN PO 08/14/17 15:45 (Lipitor) 20 mg HS PO 08/14/17 21:00 08/19/17 20:32 (Folate) 1 mg DAILY PO 08/15/17 09:00 08/19/17 08:27 (Lopressor) 50 mg Q12HR PO 08/14/17 21:00 08/19/17 20:32 (Theragran M Tab) 1 tab DAILY PO 08/15/17 09:00 08/19/17 08:27 (Vitamin B1) 100 mg DAILY PO 08/15/17 09:00 08/19/17 08:27 (Duoneb Neb) 1 ampule Q4HR NEB PRN NEB 08/14/17 17:30 (Tylenol) 650 mg Q4H PRN PO 08/14/17 23:30 08/18/17 08:50 (Catapres) 0.1 mg Q6H PRN PO 08/17/17 02:15 08/19/17 16:27 Valproate Sodium 500 mg/Sodium Chloride 105 ml @ 105 mls/hr Q8H IV 08/17/17 17:00 08/20/17 01:10 (Dilantin Liq) 130 mg TID PO 08/18/17 13:00 08/19/17 17:44 (Luminal Inj) 90 mg BID IV PUSH 08/18/17 15:00 08/19/17 20:33 (risperDAL) 1 mg BID PO 08/19/17 11:00 08/19/17 20:32 (Apresoline) 50 mg TID PO 08/19/17 18:00 08/19/17 17:50 (Procardia Xl) 90 mg DAILY PO 08/20/17 09:00 Allergies Allergies Coded Allergies No Known Allergies (Verified Adverse Reaction, Unknown, 08/14/17) Review of Systems All other ROS: ROS reviewed as documented in chart Exam I&O / VS Vital Signs Date Time Temp Pulse Resp B/P (MAP) Pulse Ox O2 Delivery O2 Flow Rate FiO2 08/20/17 08:00 97.3 85 18 173/97 (122) 97 08/20/17 04:15 97.6 82 18 156/83 (107) 98 08/20/17 04:09 101 08/20/17 00:56 98.1 75 18 173/79 (110) 99 08/20/17 00:02 76 08/19/17 21:16 82 08/19/17 21:09 97.6 82 19 166/81 (109) 97 08/19/17 16:23 98.3 80 18 185/98 (127) 100 08/19/17 13:11 80 08/19/17 12:13 98.6 80 18 167/98 (121) 99 General: Alert and Oriented, No acute distress Eye: EOMI Respiratory: Non-labored respirations Neurologic: Alert, Oriented Psychiatric: Cooperative, Appropriate mood & affect Exam Comments drowsy but easily alerts ox 3, follows, calm, eomi, left HH, reduced left nlf , reduced left ue rigidity at shoulder, no tremors, can move all 4 ext to gravity Objective Micro and Labs Laboratory Tests Test 08/20/17 07:33 White Blood Count 10.0 Red Blood Count 4.17 Hemoglobin 11.4 Hematocrit 34.1 Mean Corpuscular Volume 81.6 Mean Corpuscular Hemoglobin 27.2 Mean Corpuscular Hemoglobin Concent 33.4 Red Cell Distribution Width 13.9 Platelet Count 252 Mean Platelet Volume 9.4 Blood Urea Nitrogen 14 Creatinine 1.31 Random Glucose 82 Calcium Level 8.5 Sodium Level 137 Potassium Level 3.8 Chloride Level 103 Carbon Dioxide Level 25.1 Anion Gap 9 Estimat Glomerular Filtration Rate 66 Phenytoin (Dilantin) Level 16.7 Valproic Acid (Depakene) Level 41 Problem Qualifiers (1) HTN (hypertension): Qualified Codes: I10 - Essential (primary) hypertension (2) Dementia, vascular, mixed: Qualified Codes: F01.51 - Vascular dementia with behavioral disturbance Paul Stevens MD Aug 20, 2017 09:21
[2017-08-20] MEDS: PHENYTOIN SUSP 100 MG/4 ML CUP PO SCH ×3 (10:10→16:57)
[2017-08-20] MEDS: FOLIC ACID 1 MG TAB PO SCH (10:12)
[2017-08-20] MEDS: METOPROLOL TARTRATE 50 MG TAB PO SCH (10:12)
[2017-08-20] MEDS: DOCUSATE SODIUM 50 MG/SENNA 8.6 MG TAB PO SCH ×2 (10:13→21:00)
[2017-08-20] MEDS: risperiDONE 1 MG TAB PO SCH ×2 (10:13→21:25)
[2017-08-20] MEDS: hydrALAZINE HCL 25 MG TAB PO SCH ×3 (10:13→17:03)
[2017-08-20] MEDS: MULTIVITAMINS/MINERALS THERAPEUTIC TAB PO SCH (10:14)
[2017-08-20] MEDS: THIAMINE HCL 100 MG TAB PO SCH (10:14)
[2017-08-20] MEDS: PHENobarbital SOD 130 MG/ML VIAL IV PUSH SCH ×2 (10:23→21:26)
[2017-08-20 10:33] LABS: ALBUMIN 3.1 GM/DL (3.4-5.0); DIRECT BILIRUBIN ADULT 0.1 MG/DL (0.0-0.2)
[2017-08-20 10:35] LABS: INDIRECT BILIRUBIN 0.2 MG/DL (0.0-0.8); TOTAL BILIRUBIN ADULT 0.3 MG/DL (0.2-1.0)
--- NOTE | 2017-08-20 11:10 | HHI.PR ---
Subjective Remarks Follow up for ICH, seizure disorder, agitation. Patient is currently doing well. However, he reports some visual hallucinations. Objective Vitals Vital Signs Date Time Temp Pulse Resp B/P (MAP) Pulse Ox O2 Delivery O2 Flow Rate FiO2 08/20/17 08:00 97.3 85 18 173/97 (122) 97 08/20/17 04:15 97.6 82 18 156/83 (107) 98 08/20/17 04:09 101 08/20/17 00:56 98.1 75 18 173/79 (110) 99 08/20/17 00:02 76 08/19/17 21:16 82 08/19/17 21:09 97.6 82 19 166/81 (109) 97 08/19/17 16:23 98.3 80 18 185/98 (127) 100 08/19/17 13:11 80 08/19/17 12:13 98.6 80 18 167/98 (121) 99 I/O 08/19/17 08/19/17 08/19/17 08/20/17 08/20/17 08/20/17 07:00 15:00 23:00 07:00 15:00 23:00 Intake Total 345 ml 105 ml 100 ml Output Total 350 ml 200 ml Balance -5 ml 105 ml -100 ml Intake Oral 240 ml IV Total 105 ml 105 ml 100 ml Output Urine Total 350 ml 200 ml # Voids 1 2 # Bowel Movements 2 Result Diagram: 08/20/17 0733 08/20/17 0733 Imaging Last Impressions Chest X-Ray 08/14/17 1223 Signed Impressions: Service Date/Time: Monday, August 14, 2017 12:47 - CONCLUSION: No acute disease. Natan Mitchell MD Head CT 08/14/17 0000 Signed Impressions: Service Date/Time: Monday, August 14, 2017 13:50 - CONCLUSION: 1. 4 mm area of increased attenuation in the right posterior parietal cortex most consistent with a punctate area of parenchymal hemorrhage. This was not seen on patient's previous examinations. There is no significant mass effect associated with this. MRI imaging of the brain with contrast would be of benefit for further assessment to ensure there is no underlying lesion. Jevon Osborne MD Brain MRI 08/14/17 0000 Signed Impressions: Service Date/Time: Monday, August 14, 2017 17:43 - CONCLUSION: No underlying mass. No large/increasing hemorrhage or midline shift. Chronic right parietal cortical infarct and chronic bilateral white matter changes again noted. Ruiz Reese MD Objective Remarks GENERAL: Alert, NAD. SKIN: Warm and dry. HEAD: Normocephalic. EYES: No scleral icterus. No injection or drainage. NECK: Supple, trachea midline. No JVD or lymphadenopathy. CARDIOVASCULAR: Regular rate and rhythm without murmurs, gallops, or rubs. RESPIRATORY: Breath sounds equal bilaterally. No accessory muscle use. GASTROINTESTINAL: Abdomen soft, non-tender, nondistended. MUSCULOSKELETAL: No cyanosis, or edema. BACK: Nontender without obvious deformity. No CVA tenderness. A/P Problem List: (1) Cerebral parenchymal hemorrhage ICD Code: I61.9 - Nontraumatic intracerebral hemorrhage, unspecified Status: Acute (2) HTN (hypertension) ICD Code: I10 - Essential (primary) hypertension Status: Chronic (3) Seizures ICD Code: R56.9 - Unspecified convulsions Status: Chronic Assessment and Plan 67 Y/O male with: Acute ICH: with hx of CVA Jun 2017 with residual left sided weakness. - Head CT shows 4 mm area of increased attenuation in the right posterior parietal cortex most consistent with a punctate area of parenchymal hemorrhage; this was not seen on patient's previous examinations; no significant mass effect associated with this -MRI brain with no large/ increasing hemorrhage. -Echo 07/04/17 with systolic function low normal EF 50%, Holter 07/02/17 unremarkable with sinus rhythm, Head/Neck CTA 07/05 unremarkable -neurosurgery recommended no surgical intervention. -no interventions at this time; will continue with antiepileptics. -Neurology following and titrating seizure medications. -Neuro checks, Seizure precautions, Monitor on telemetry -PT/OT Seizures post stroke: - EEG showing seizure activities -seizure precautions -Continue Valproic acid 500mg IV Q8hrs, Dilantin 130mg TID, Phenobarbital 90mg IV BID. Fall: mechanical trip and fall. Patient reports he tripped over cardboard box in his apartment. Patient has cane and walker at home. -likely contributed to ICH as above -CPK wnl -PT Hypertensive Urgency with Accelerated Hypertension: BP elevated to 204/88 in the ED. S/p IV Hydralazine 10mg x1. -Continue patient's home medications including nifedipine, hydralazine, metoprolol -Increase Nifedipine to 90mg Qday. Hydralazine 50mg TID. -Change Metoprolol to Labetalol 200mg BID. COPD: chronic, stable, does not appear to be in exacerbation -continue DuoNeb prn Dementia Agitation Hallucination -Appreciate psychiatry input. -Continue Risperdal and Haldol PRN. Full code. DVT Prophylaxis: teds/scds; holding chemoprophylaxis with ICH as above Problem Qualifiers (1) Cerebral parenchymal hemorrhage: Qualified Codes: I61.8 - Other nontraumatic intracerebral hemorrhage (2) HTN (hypertension): Qualified Codes: I10 - Essential (primary) hypertension Jefferson Riley DO Aug 20, 2017 11:10
--- NOTE | 2017-08-20 14:13 | PD.PSY.CON ---
Provisional Diagnosis Admission Date Aug 14, 2017 at 16:56 Post I. Unspecified psychosis History of Present Illness Service Psychiatry Consult Requested By Medicine Reason for Consult Psychiatry Primary Care Physician Unknown HPI Patient is a 67-year-old -[place] man, domiciled alone in [facility], , unemployed, with psychiatric history of unspecified psychosis, dementia, 1 previous psychiatric hospitalization in July 2017, documentation reviewed with history of CVA with left-sided residual weakness, seizure, hypertension, COPD, presents with worsening left upper extremity twitching and weakness. The patient was recently diagnosed with seizure secondary to acute stroke on 07/04/17, discharged 07/06, then readmitted to psych -07/27, discharged to [facility]. Upon arrival to the ED, head CT revealed 4 mm area of increased attenuation in the right posterior parietal cortex most consistent with a punctate area of parenchymal hemorrhage; this was not seen on patient's previous examinations; no significant mass effect associated with this ; recommended brain MRI. Patient is consulted to psychiatry due to paranoia, active visual hallucinations, agitation and aggressiveness in the floor. Past Family Social History Coded Allergies: No Known Allergies (Verified Adverse Reaction, Unknown, 08/14/17) Active Scripts Phenobarbital (Phenobarbital) 97.2 Mg Tab, 97.2 MG PO BID for Control Seizures, #60 TAB 0 Refills Prov:Jefferson Riley DO 08/21/17 Valproic Acid (Valproic Acid) 250 Mg Cap, 500 MG PO TID for Seizure Control, # 90 CAP 0 Refills Prov:Jefferson Riley DO 08/21/17 Risperidone (Risperdal) 1 Mg Tab, 2 MG PO BID for Agitation, #60 TAB Prov:Jefferson iRley DO 08/21/17 Phenytoin Extended (Dilantin) 30 Mg Cap, 30 MG PO TID for Seizure Control, #90 CAP Prov:Jefferson Riley DO 08/21/17 Phenytoin Extended (Dilantin) 100 Mg Cap, 100 MG PO TID for Seizure Control, # 90 CAP Prov:Jefferson Riley DO 08/21/17 Nifedipine (Nifedipine ER) 90 Mg Tab, 90 MG PO DAILY for Blood Pressure Management, #30 TAB Prov:Jefferson Riley DO 08/21/17 Labetalol (Labetalol) 200 Mg Tab, 200 MG PO Q12HR for Blood Pressure Management , #60 TAB Prov:Jefferson Riley DO 08/21/17 Hydralazine HCl (Hydralazine HCl) 25 Mg Tablet, 50 MG PO TID for Blood Pressure Management, #90 TAB Prov:Jefferson Riley DO 08/21/17 Atorvastatin (Atorvastatin) 20 Mg Tab, 20 MG PO HS for Stroke Prevention, #30 TAB 0 Refills Prov:Ruiz Holley MD 07/27/17 Multiple Vitamins W/ Minerals (Thera M Plus) 1 Tab, 1 TAB PO DAILY for Alcohol Detox, #30 TAB 0 Refills Prov:Ruiz Holley MD 07/27/17 Thiamine HCl (Gnp Vitamin B-1) 100 Mg Tab, 100 MG PO DAILY for Alcohol Detox, # 30 TAB 0 Refills Prov:Ruiz Holley MD 07/27/17 Folic Acid (Folic Acid) 1 Mg Tablet, 1 MG PO DAILY for Alcohol Detox, #30 MG 0 Refills Prov:Ruiz Holley MD 07/27/17 Reported Medications Acetaminophen (Tylenol) 325 Mg Tab, 650 MG PO Q4H Y for PAIN/TEMP 100 OR ABOVE, TAB 0 Refills 07/11/17 Discontinued Scripts Quetiapine (Seroquel) 25 Mg Tab, 25 MG PO TID@0800,1300,1900 for health, #90 TAB 0 Refills Prov:Ruiz Holley MD 07/27/17 Risperidone (Risperdal) 1 Mg Tab, 1 MG PO HS for health, #30 TAB 0 Refills Prov:Ruiz Holley MD 07/27/[address] (Aspirin DR) 81 Mg Tabdr, 81 MG PO DAILY for Stroke Prevention, #30 TAB 0 Refills Prov:Ruiz Holley MD 07/27/17 Levetiracetam (Keppra) 500 Mg Tab, 500 MG PO BID for Seizure Control, #60 TAB 0 Refills Prov:Ruiz Holley MD 07/27/17 Hydralazine HCl (Hydralazine HCl) 25 Mg Tablet, 25 MG PO Q12HR for Blood Pressure Management, #60 TAB 0 Refills Prov:Ruiz Holley MD 07/27/17 Nifedipine ER 24 HR (Nifedipine ER 24 HR) 30 Mg Tab, 30 MG PO DAILY for Blood Pressure Management, #30 TAB 0 Refills Prov:Ruiz Holley MD 07/27/17 Metoprolol Tartrate (Lopressor) 50 Mg Tab, 50 MG PO Q12HR for Blood Pressure Management, #60 TAB 0 Refills Prov:Ruiz Holley MD 07/27/17 Current Medications Medications (Trade) Dose Ordered Sig/Blaze Route Start Time Stop Time Status Last Admin (NS Flush) 2 ml UNSCH PRN IV FLUSH 08/14/17 15:45 08/18/17 01:19 (NS Flush) 2 ml BID IV FLUSH 08/14/17 21:00 08/19/17 20:32 (Tylenol) 650 mg Q4H PRN PO 08/14/17 15:45 08/16/17 18:49 (Zofran Inj) 4 mg Q6H PRN IVP 08/14/17 15:45 (Narcan Inj) 0.4 mg UNSCH PRN IV PUSH 08/14/17 15:45 (Génesis-Colace) 1 tab BID PO 08/14/17 21:00 08/20/17 10:13 (Milk Of Magnesia Liq) 30 ml Q12H PRN PO 08/14/17 15:45 (Senokot) 17.2 mg Q12H PRN PO 08/14/17 15:45 (Dulcolax Supp) 10 mg DAILY PRN RECTAL 08/14/17 15:45 (Lactulose Liq) 30 ml DAILY PRN PO 08/14/17 15:45 (Lipitor) 20 mg HS PO 08/14/17 21:00 08/19/17 20:32 (Folate) 1 mg DAILY PO 08/15/17 09:00 08/20/17 10:12 (Lopressor) 50 mg Q12HR PO 08/14/17 21:00 08/20/17 10:12 (Theragran M Tab) 1 tab DAILY PO 08/15/17 09:00 08/20/17 10:14 (Vitamin B1) 100 mg DAILY PO 08/15/17 09:00 08/20/17 10:14 (Duoneb Neb) 1 ampule Q4HR NEB PRN NEB 08/14/17 17:30 (Tylenol) 650 mg Q4H PRN PO 08/14/17 23:30 08/18/17 08:50 (Catapres) 0.1 mg Q6H PRN PO 08/17/17 02:15 08/19/17 16:27 Valproate Sodium 500 mg/Sodium Chloride 105 ml @ 105 mls/hr Q8H IV 08/17/17 17:00 08/20/17 10:11 (Dilantin Liq) 130 mg TID PO 08/18/17 13:00 08/20/17 13:33 (Luminal Inj) 90 mg BID IV PUSH 08/18/17 15:00 08/20/17 10:23 (Apresoline) 50 mg TID PO 08/19/17 18:00 08/20/17 13:33 (Procardia Xl) 90 mg DAILY PO 08/20/17 09:00 08/20/17 09:00 (risperDAL) 2 mg BID PO 08/20/17 21:00 UNV Physical Exam Vital Signs Vital Signs Date Time Temp Pulse Resp B/P (MAP) Pulse Ox O2 Delivery O2 Flow Rate FiO2 08/20/17 12:00 98.7 75 18 175/90 (118) 95 I/O 08/20/17 08/20/17 08/21/17 08:00 16:00 00:00 Intake Total 100 ml Output Total 200 ml Balance -100 ml Lab Results Test 08/20/17 07:33 White Blood Count 10.0 TH/MM3 Red Blood Count 4.17 MIL/MM3 Hemoglobin 11.4 GM/DL Hematocrit 34.1 % Mean Corpuscular Volume 81.6 FL Mean Corpuscular Hemoglobin 27.2 PG Mean Corpuscular Hemoglobin Concent 33.4 % Red Cell Distribution Width 13.9 % Platelet Count 252 TH/MM3 Mean Platelet Volume 9.4 FL Blood Urea Nitrogen 14 MG/DL Creatinine 1.31 MG/DL Random Glucose 82 MG/DL Calcium Level 8.5 MG/DL Sodium Level 137 MEQ/L Potassium Level 3.8 MEQ/L Chloride Level 103 MEQ/L Carbon Dioxide Level 25.1 MEQ/L Anion Gap 9 MEQ/L Estimat Glomerular Filtration Rate 66 ML/MIN Total Bilirubin 0.3 MG/DL Direct Bilirubin 0.1 MG/DL Indirect Bilirubin 0.2 MG/DL Aspartate Amino Transf (AST/SGOT) 18 U/L Alanine Aminotransferase (ALT/SGPT) 17 U/L Alkaline Phosphatase 112 U/L Total Protein 8.0 GM/DL Albumin 3.1 GM/DL Phenytoin (Dilantin) Level 16.7 MCG/ML Valproic Acid (Depakene) Level 41 MCG/ML Phenobarbital Level 6.0 MCG/ML Mental Status Examination Appearance: Appropriate Consciousness: Alert Orientation: x4 Motor Activity: Normal gait Speech: Unremarkable Language: Adequate Fund of Knowledge: Adequate Attention and Concentration: Adequate Memory: Unremarkable Mood: Angry Affect: Irritable Thought Process & Associations: Intact Thought Content: Bizarre thinking, Hallucinations, Delusional Hallucination Type: Auditory, Visual Delusion Type: None Suicidal Ideation: No Suicidal Plan: No Suicidal Intention: No Homicidal Ideation: No Homicidal Plan: No Homicidal Intention: No Insight: Poor Judgment: Poor Assessment & Plan Problem List: (1) Unspecified psychosis ICD Codes: F29 - Unspecified psychosis not due to a substance or known physiological condition Assessment & Plan: Patient presents with disorganized speech and behavior, tangentiality, visual hallucinations. Will increase Risperdal to 2 mg bid for psychosis. Add Haldol 5 mg q/8 h prn severe agitation/aggressiveness. Qtc initially was 424. Patient could benefit of psychiatric admission psychosis persist beyond medical clearance. Assessment & Plan Estimated LOS: Derian Vasquez MD Aug 20, 2017 14:13
[2017-08-20] MEDS ORDERED: HALOPERIDOL LACTATE 5 MG/ML AMP IM PRN (14:15)
[2017-08-20] MEDS ORDERED: PHENYTOIN SODIUM 100 MG CAP PO SCH (20:00)
[2017-08-20] MEDS: PHENYTOIN SODIUM 100 MG CAP PO SCH (21:24)
[2017-08-20] MEDS: PHENYTOIN SODIUM 30 MG CAP PO SCH (21:24)
[2017-08-20] MEDS: ATORVASTATIN 20 MG TAB PO SCH (21:25)
[2017-08-20] MEDS: LABETALOL HCL 200 MG TAB PO SCH (21:25)
[2017-08-20] MEDS: cloNIDine HCL 0.1 MG TAB PO PRN (21:25)
[2017-08-21] VITALS (8 sets, daily range): BP systolic 118–180; BP diastolic 65–92; PULSE 74–88; RESP 18; TEMP 97.4–98.8; O2SAT 96–100
[2017-08-21] MEDS: VALPROATE INJ 500 MG in SODIUM CHLORIDE 0.9% INJ 100 ML IV SCH ×3 (02:08→17:57)
[2017-08-21 05:04] LABS: PHENYTOIN (DILANTIN) 16.2 MCG/ML (10.0-20.0)
--- NOTE | 2017-08-21 07:02 | MG ---
cc: Paul Stevens MD ELECTROENCEPHALOGRAM RECORD NUMBER: [id number] DESCRIPTION: This is a 67-year-old, previous stroke, PLED activity. Subtle right posterior rhythmic delta pseudo-periodic waves, low voltage noted. Better EEG variability and reactivity. Reduced driving with photic stimulation. Limited driving photic stimulation. Single lead EKG showing sinus rhythm. Mild low voltage. Slight PLED activity towards the end. INTERPRETATION: Significantly improved right-sided periodic lateralized epileptiform discharges, with minimal brief episodes low voltage and asymmetric right posterior hemispheric slowing, consistent with a structural lesion with also sleep state. Clinical correlation. MD DREW Herron/CARLTON , 08:39 PM , 09:08 PM
--- NOTE | 2017-08-21 09:36 | HHI.PR ---
Review/Management Diagnosis/Plan: (1) Seizures ICD Codes: R56.9 - Unspecified convulsions Status: Chronic Plan: 08/17 eeg reduced rt pleds post-stroke sz. questionable compliance to medication dil, dep level in range phb/dilantin/depakote recs neuro stable risperdal increased to 2mg bid by psych fall precaution d/c planning from neuro no driving/fall precautions (2) Occipital infarction ICD Codes: I63.9 - Cerebral infarction, unspecified Status: Chronic (3) HTN (hypertension) ICD Codes: I10 - Essential (primary) hypertension Status: Chronic (4) Dementia, vascular, mixed ICD Codes: F01.50 - Vascular dementia without behavioral disturbance Status: Chronic Subjective Subjective Comments No acute events reported No headache No chest pain No dyspnea Active Medications Current Medications Medications (Trade) Dose Ordered Sig/Blaze Route Start Time Stop Time Status Last Admin (NS Flush) 2 ml UNSCH PRN IV FLUSH 08/14/17 15:45 08/18/17 01:19 (NS Flush) 2 ml BID IV FLUSH 08/14/17 21:00 08/20/17 21:27 (Tylenol) 650 mg Q4H PRN PO 08/14/17 15:45 08/16/17 18:49 (Zofran Inj) 4 mg Q6H PRN IVP 08/14/17 15:45 (Narcan Inj) 0.4 mg UNSCH PRN IV PUSH 08/14/17 15:45 (Génesis-Colace) 1 tab BID PO 08/14/17 21:00 08/20/17 10:13 (Milk Of Magnesia Liq) 30 ml Q12H PRN PO 08/14/17 15:45 (Senokot) 17.2 mg Q12H PRN PO 08/14/17 15:45 (Dulcolax Supp) 10 mg DAILY PRN RECTAL 08/14/17 15:45 (Lactulose Liq) 30 ml DAILY PRN PO 08/14/17 15:45 (Lipitor) 20 mg HS PO 08/14/17 21:00 08/20/17 21:25 (Folate) 1 mg DAILY PO 08/15/17 09:00 08/20/17 10:12 (Theragran M Tab) 1 tab DAILY PO 08/15/17 09:00 08/20/17 10:14 (Vitamin B1) 100 mg DAILY PO 08/15/17 09:00 08/20/17 10:14 (Duoneb Neb) 1 ampule Q4HR NEB PRN NEB 08/14/17 17:30 (Tylenol) 650 mg Q4H PRN PO 08/14/17 23:30 08/18/17 08:50 (Catapres) 0.1 mg Q6H PRN PO 08/17/17 02:15 08/20/17 21:25 Valproate Sodium 500 mg/Sodium Chloride 105 ml @ 105 mls/hr Q8H IV 08/17/17 17:00 08/21/17 02:08 (Luminal Inj) 90 mg BID IV PUSH 08/18/17 15:00 08/20/17 21:26 (Apresoline) 50 mg TID PO 08/19/17 18:00 08/20/17 17:03 (Procardia Xl) 90 mg DAILY PO 08/20/17 09:00 08/20/17 09:00 (risperDAL) 2 mg BID PO 08/20/17 21:00 08/20/17 21:25 (Haldol Inj) 5 mg Q8HR PRN IM 08/20/17 14:15 08/20/17 16:58 (Dilantin) 100 mg TID PO 08/20/17 20:15 08/20/17 21:24 (Dilantin) 30 mg TID PO 08/20/17 20:15 08/20/17 21:24 (Trandate) 200 mg Q12HR PO 08/20/17 21:00 08/20/17 21:25 Allergies Allergies Coded Allergies No Known Allergies (Verified Adverse Reaction, Unknown, 08/14/17) Review of Systems All other ROS: ROS reviewed as documented in chart Exam I&O / VS Vital Signs Date Time Temp Pulse Resp B/P (MAP) Pulse Ox O2 Delivery O2 Flow Rate FiO2 08/21/17 08:00 98.0 76 18 170/89 (116) 100 08/21/17 06:30 158/87 (110) 08/21/17 04:38 98.8 82 18 174/92 (119) 96 08/21/17 00:08 97.8 84 18 153/87 (109) 96 08/20/17 20:43 97.7 84 18 196/95 (128) 99 08/20/17 12:00 98.7 75 18 175/90 (118) 95 General: Alert and Oriented, No acute distress Eye: EOMI Respiratory: Non-labored respirations Neurologic: Alert, Oriented Psychiatric: Cooperative, Appropriate mood & affect Exam Comments drowsy but easily alerts ox 3, follows, calm, eomi, left HH, reduced left nlf , reduced left ue rigidity at shoulder, no tremors, can move all 4 ext to gravity Objective Micro and Labs Laboratory Tests Test 08/21/17 04:05 Phenytoin (Dilantin) Level 16.2 Valproic Acid (Depakene) Level 54 Phenobarbital Level 8.9 Problem Qualifiers (1) HTN (hypertension): Qualified Codes: I10 - Essential (primary) hypertension (2) Dementia, vascular, mixed: Qualified Codes: F01.51 - Vascular dementia with behavioral disturbance Paul Stevens MD Aug 21, 2017 09:36
[2017-08-21] MEDS: THIAMINE HCL 100 MG TAB PO SCH (09:43)
[2017-08-21] MEDS: risperiDONE 1 MG TAB PO SCH ×2 (09:43→21:34)
[2017-08-21] MEDS: NIFEdipine 90 MG SUSTAINED RELEASE TAB PO SCH (09:43)
[2017-08-21] MEDS: LABETALOL HCL 200 MG TAB PO SCH ×2 (09:43→21:34)
[2017-08-21] MEDS: PHENYTOIN SODIUM 100 MG CAP PO SCH ×3 (09:44→17:57)
[2017-08-21] MEDS: PHENYTOIN SODIUM 30 MG CAP PO SCH ×3 (09:44→17:57)
[2017-08-21] MEDS: hydrALAZINE HCL 25 MG TAB PO SCH ×3 (09:44→17:57)
[2017-08-21] MEDS: FOLIC ACID 1 MG TAB PO SCH (09:44)
[2017-08-21] MEDS: DOCUSATE SODIUM 50 MG/SENNA 8.6 MG TAB PO SCH ×2 (09:45→21:34)
[2017-08-21] MEDS: SODIUM CHLORIDE 0.9% FLUSH 10 ML FLUSH IV FLUSH SCH ×2 (09:46→21:35)
[2017-08-21] MEDS: MULTIVITAMINS/MINERALS THERAPEUTIC TAB PO SCH (09:46)
[2017-08-21] MEDS ORDERED: NIFE90TA2 PO (12:36)
[2017-08-21] MEDS ORDERED: DILA30CA PO (12:36)
[2017-08-21] MEDS ORDERED: DILA100C PO (12:36)
[2017-08-21] MEDS ORDERED: VALP250C PO (12:36)
[2017-08-21] MEDS ORDERED: HYDR-3799 PO (12:36)
[2017-08-21] MEDS ORDERED: RISP1 PO (12:36)
[2017-08-21] MEDS ORDERED: PHENO100 PO (12:36)
[2017-08-21] MEDS ORDERED: LABE200T2 PO (12:36)
--- NOTE | 2017-08-21 12:49 | HHI.PR ---
Subjective Remarks Follow up for ICH, seizure disorder, agitation. Is currently doing well. No acute concerns. No fever chills. Objective Vitals Vital Signs Date Time Temp Pulse Resp B/P (MAP) Pulse Ox O2 Delivery O2 Flow Rate FiO2 08/21/17 12:24 76 129/65 (86) 08/21/17 12:00 98.0 74 18 118/69 (85) 97 08/21/17 08:00 98.0 76 18 170/89 (116) 100 08/21/17 06:30 158/87 (110) 08/21/17 04:38 98.8 82 18 174/92 (119) 96 08/21/17 00:08 97.8 84 18 153/87 (109) 96 08/20/17 20:43 97.7 84 18 196/95 (128) 99 I/O 08/20/17 08/20/17 08/20/17 08/21/17 08/21/17 08/21/17 07:00 15:00 23:00 07:00 15:00 23:00 Intake Total 100 ml 585 ml Output Total 200 ml 250 ml Balance -100 ml 335 ml Intake Oral 480 ml IV Total 100 ml 105 ml Output Urine Total 200 ml 250 ml # Voids 2 2 2 # Bowel Movements 2 1 1 Result Diagram: 08/20/17 0733 08/20/17 0733 Imaging Last Impressions Chest X-Ray 08/14/17 1223 Signed Impressions: Service Date/Time: Monday, August 14, 2017 12:47 - CONCLUSION: No acute disease. Natan Mitchell MD Head CT 08/14/17 0000 Signed Impressions: Service Date/Time: Monday, August 14, 2017 13:50 - CONCLUSION: 1. 4 mm area of increased attenuation in the right posterior parietal cortex most consistent with a punctate area of parenchymal hemorrhage. This was not seen on patient's previous examinations. There is no significant mass effect associated with this. MRI imaging of the brain with contrast would be of benefit for further assessment to ensure there is no underlying lesion. Jevon Osborne MD Brain MRI 08/14/17 0000 Signed Impressions: Service Date/Time: Monday, August 14, 2017 17:43 - CONCLUSION: No underlying mass. No large/increasing hemorrhage or midline shift. Chronic right parietal cortical infarct and chronic bilateral white matter changes again noted. Ruiz Reese MD Objective Remarks GENERAL: Alert, NAD. SKIN: Warm and dry. HEAD: Normocephalic. EYES: No scleral icterus. No injection or drainage. NECK: Supple, trachea midline. No JVD or lymphadenopathy. CARDIOVASCULAR: Regular rate and rhythm without murmurs, gallops, or rubs. RESPIRATORY: Breath sounds equal bilaterally. No accessory muscle use. GASTROINTESTINAL: Abdomen soft, non-tender, nondistended. MUSCULOSKELETAL: No cyanosis, or edema. BACK: Nontender without obvious deformity. No CVA tenderness. Procedures 08/19/2017 EEG Significantly improved right-sided periodic lateralized epileptiform discharges, with minimal brief episodes low voltage and asymmetric right posterior hemispheric slowing, consistent with a structural lesion with also sleep state. Clinical correlation. A/P Problem List: (1) Cerebral parenchymal hemorrhage ICD Code: I61.9 - Nontraumatic intracerebral hemorrhage, unspecified Status: Acute (2) HTN (hypertension) ICD Code: I10 - Essential (primary) hypertension Status: Chronic (3) Seizures ICD Code: R56.9 - Unspecified convulsions Status: Chronic Assessment and Plan 67 Y/O male with: Acute ICH: with hx of CVA Jun 2017 with residual left sided weakness. - Head CT shows 4 mm area of increased attenuation in the right posterior parietal cortex most consistent with a punctate area of parenchymal hemorrhage; this was not seen on patient's previous examinations; no significant mass effect associated with this -MRI brain with no large/ increasing hemorrhage. -Echo 07/04/17 with systolic function low normal EF 50%, Holter 07/02/17 unremarkable with sinus rhythm, Head/Neck CTA 07/05 unremarkable -neurosurgery recommended no surgical intervention. -no interventions at this time; will continue with antiepileptics. -Neurology following and titrating seizure medications. -Neuro checks, Seizure precautions, Monitor on telemetry -PT/OT Seizures post stroke: - EEG from 08/19/2017 show significant improvement. -seizure precautions -Continue valproic acid, Dilantin, phenobarbital. Fall: mechanical trip and fall. Patient reports he tripped over cardboard box in his apartment. Patient has cane and walker at home. -likely contributed to ICH as above -CPK wnl -PT Hypertensive Urgency with Accelerated Hypertension: BP elevated to 204/88 in the ED. S/p IV Hydralazine 10mg x1. -Continue patient's home medications including nifedipine, hydralazine, metoprolol -Increase Nifedipine to 90mg Qday. Hydralazine 50mg TID. -Changed Metoprolol to Labetalol 200mg BID. -Blood pressure improved to 120-130s systolic. COPD: chronic, stable, does not appear to be in exacerbation -continue DuoNeb prn Dementia Agitation Hallucination -Appreciate psychiatry input. -Continue Risperdal and Haldol PRN. Full code. DVT Prophylaxis: teds/scds; holding chemoprophylaxis with ICH as above Discharge plan: Discussed with neurologist. We both feel that patient would benefit more from going to a rehab facility. Case management is going to work on SNF placement. Patient can be discharged upon placement management. Problem Qualifiers (1) Cerebral parenchymal hemorrhage: Qualified Codes: I61.8 - Other nontraumatic intracerebral hemorrhage (2) HTN (hypertension): Qualified Codes: I10 - Essential (primary) hypertension Jefferson Riley DO Aug 21, 2017 12:49 pm
[2017-08-21] MEDS: PHENobarbital SOD 130 MG/ML VIAL IV PUSH SCH ×2 (14:09→21:35)
[2017-08-21] MEDS: ATORVASTATIN 20 MG TAB PO SCH (21:35)
[2017-08-22] VITALS: BP 144/70; PULSE 82; RESP 19; TEMP 97.3; O2SAT 96
[2017-08-22] MEDS: VALPROATE INJ 500 MG in SODIUM CHLORIDE 0.9% INJ 100 ML IV SCH ×2 (01:34→10:47)
[2017-08-22 04:30] VITALS: BP 128/75; PULSE 80; RESP 22; TEMP 98; O2SAT 95
--- NOTE | 2017-08-22 07:22 | HHI.PR ---
Review/Management Diagnosis/Plan: (1) Seizures ICD Codes: R56.9 - Unspecified convulsions Status: Chronic Plan: 08/17 eeg reduced rt pleds post-stroke sz. questionable compliance to medication dil, dep level in range phb/dilantin/depakote risperdal increased to 2mg bid by psych recs neuro stable; no restraints, calm this am fall precaution d/c planning from neuro to rehab, d/w pt/medical vs home with home health outpatient f/u; continue on po sz meds no driving/fall precautions (2) Occipital infarction ICD Codes: I63.9 - Cerebral infarction, unspecified Status: Chronic (3) HTN (hypertension) ICD Codes: I10 - Essential (primary) hypertension Status: Chronic (4) Dementia, vascular, mixed ICD Codes: F01.50 - Vascular dementia without behavioral disturbance Status: Chronic Subjective Subjective Comments No acute events reported No headache No chest pain No dyspnea Active Medications Current Medications Medications (Trade) Dose Ordered Sig/Blaze Route Start Time Stop Time Status Last Admin (NS Flush) 2 ml UNSCH PRN IV FLUSH 08/14/17 15:45 08/18/17 01:19 (NS Flush) 2 ml BID IV FLUSH 08/14/17 21:00 08/21/17 21:35 (Tylenol) 650 mg Q4H PRN PO 08/14/17 15:45 08/16/17 18:49 (Zofran Inj) 4 mg Q6H PRN IVP 08/14/17 15:45 (Narcan Inj) 0.4 mg UNSCH PRN IV PUSH 08/14/17 15:45 (Génesis-Colace) 1 tab BID PO 08/14/17 21:00 08/21/17 21:34 (Milk Of Magnesia Liq) 30 ml Q12H PRN PO 08/14/17 15:45 (Senokot) 17.2 mg Q12H PRN PO 08/14/17 15:45 (Dulcolax Supp) 10 mg DAILY PRN RECTAL 08/14/17 15:45 (Lactulose Liq) 30 ml DAILY PRN PO 08/14/17 15:45 (Lipitor) 20 mg HS PO 08/14/17 21:00 08/21/17 21:35 (Folate) 1 mg DAILY PO 08/15/17 09:00 08/21/17 09:44 (Theragran M Tab) 1 tab DAILY PO 08/15/17 09:00 08/21/17 09:46 (Vitamin B1) 100 mg DAILY PO 08/15/17 09:00 08/21/17 09:43 (Duoneb Neb) 1 ampule Q4HR NEB PRN NEB 08/14/17 17:30 (Tylenol) 650 mg Q4H PRN PO 08/14/17 23:30 08/18/17 08:50 (Catapres) 0.1 mg Q6H PRN PO 08/17/17 02:15 08/20/17 21:25 Valproate Sodium 500 mg/Sodium Chloride 105 ml @ 105 mls/hr Q8H IV 08/17/17 17:00 08/22/17 01:34 (Luminal Inj) 90 mg BID IV PUSH 08/18/17 15:00 08/21/17 21:35 (Apresoline) 50 mg TID PO 08/19/17 18:00 08/21/17 17:57 (Procardia Xl) 90 mg DAILY PO 08/20/17 09:00 08/21/17 09:43 (risperDAL) 2 mg BID PO 08/20/17 21:00 08/21/17 21:34 (Haldol Inj) 5 mg Q8HR PRN IM 08/20/17 14:15 08/20/17 16:58 (Dilantin) 100 mg TID PO 08/20/17 20:15 08/21/17 17:57 (Dilantin) 30 mg TID PO 08/20/17 20:15 08/21/17 17:57 (Trandate) 200 mg Q12HR PO 08/20/17 21:00 08/21/17 21:34 Allergies Allergies Coded Allergies No Known Allergies (Verified Adverse Reaction, Unknown, 08/14/17) Review of Systems All other ROS: ROS reviewed as documented in chart Exam I&O / VS Vital Signs Date Time Temp Pulse Resp B/P (MAP) Pulse Ox O2 Delivery O2 Flow Rate FiO2 08/22/17 00:00 97.3 82 19 144/70 (94) 96 08/21/17 20:30 98.1 88 18 122/69 (86) 96 3/20/18 16:00 97.4 79 18 180/86 (117) 97 08/21/17 12:24 76 129/65 (86) 08/21/17 12:00 98.0 74 18 118/69 (85) 97 08/21/17 08:00 98.0 76 18 170/89 (116) 100 General: Alert and Oriented, No acute distress Eye: EOMI Respiratory: Non-labored respirations Neurologic: Alert, Oriented Psychiatric: Cooperative, Appropriate mood & affect Exam Comments drowsy but easily alerts ox 3, follows, calm, eomi, left HH, reduced left nlf , reduced left ue rigidity at shoulder, no tremors, can move all 4 ext to gravity Problem Qualifiers (1) HTN (hypertension): Qualified Codes: I10 - Essential (primary) hypertension (2) Dementia, vascular, mixed: Qualified Codes: F01.51 - Vascular dementia with behavioral disturbance Paul Stevens MD Aug 22, 2017 07:22
[2017-08-22 08:19] VITALS: BP_SYST 185; BP_SYST 188; BP_DIAS 81; BP_DIAS 88; PULSE 93; RESP 20; TEMP 97.6; O2SAT 97
[2017-08-22] MEDS: NIFEdipine 90 MG SUSTAINED RELEASE TAB PO SCH (09:00)
[2017-08-22] MEDS: FOLIC ACID 1 MG TAB PO SCH (09:00)
[2017-08-22] MEDS: LABETALOL HCL 200 MG TAB PO SCH (09:00)
[2017-08-22] MEDS: PHENYTOIN SODIUM 100 MG CAP PO SCH ×2 (09:01→14:18)
[2017-08-22] MEDS: THIAMINE HCL 100 MG TAB PO SCH (09:18)
[2017-08-22] MEDS: PHENYTOIN SODIUM 30 MG CAP PO SCH ×2 (09:18→14:18)
[2017-08-22] MEDS: hydrALAZINE HCL 25 MG TAB PO SCH ×2 (09:18→14:18)
[2017-08-22] MEDS: MULTIVITAMINS/MINERALS THERAPEUTIC TAB PO SCH (09:18)
[2017-08-22] MEDS: DOCUSATE SODIUM 50 MG/SENNA 8.6 MG TAB PO SCH (09:18)
[2017-08-22] MEDS: risperiDONE 1 MG TAB PO SCH (09:21)
[2017-08-22] MEDS: PHENobarbital SOD 130 MG/ML VIAL IV PUSH SCH (09:21)
[2017-08-22] MEDS: SODIUM CHLORIDE 0.9% FLUSH 10 ML FLUSH IV FLUSH SCH (09:31)
[2017-08-22 09:42] LABS: PHENYTOIN (DILANTIN) 18.2 MCG/ML (10.0-20.0)
[2017-08-22 11:42] VITALS: BP 146/76; PULSE 87; RESP 20; TEMP 98.1; O2SAT 98
--- NOTE | 2017-08-22 14:25 | HHI.PR ---
Subjective Remarks Follow up for ICH, seizure disorder, agitation. Patient is currently doing well. No chest pain shortness, shortness of breath, fever or chills. Objective Vitals Vital Signs Date Time Temp Pulse Resp B/P (MAP) Pulse Ox O2 Delivery O2 Flow Rate FiO2 08/22/17 11:42 98.1 87 20 146/76 (99) 98 08/22/17 08:19 97.6 93 20 188/88 (121) 97 185/81 (115) 08/22/17 04:30 98.0 80 22 128/75 (92) 95 08/22/17 00:00 97.3 82 19 144/70 (94) 96 08/21/17 20:30 98.1 88 18 122/69 (86) 96 08/21/17 16:00 97.4 79 18 180/86 (117) 97 I/O 08/21/17 08/21/17 08/21/17 08/22/17 08/22/17 08/22/17 07:00 15:00 23:00 07:00 15:00 23:00 Intake Total 585 ml 600 ml 400 ml Output Total 250 ml 100 ml Balance 335 ml 500 ml 400 ml Intake Oral 480 ml 600 ml 400 ml IV Total 105 ml Output Urine Total 250 ml 100 ml # Voids 2 0 # Bowel Movements 1 0 0 Result Diagram: 08/20/17 0733 08/20/17 0733 Imaging Last Impressions Chest X-Ray 08/14/17 1223 Signed Impressions: Service Date/Time: Monday, August 14, 2017 12:47 - CONCLUSION: No acute disease. Natan Mitchell MD Head CT 08/14/17 0000 Signed Impressions: Service Date/Time: Monday, August 14, 2017 13:50 - CONCLUSION: 1. 4 mm area of increased attenuation in the right posterior parietal cortex most consistent with a punctate area of parenchymal hemorrhage. This was not seen on patient's previous examinations. There is no significant mass effect associated with this. MRI imaging of the brain with contrast would be of benefit for further assessment to ensure there is no underlying lesion. Jevon Osborne MD Brain MRI 08/14/17 0000 Signed Impressions: Service Date/Time: Monday, August 14, 2017 17:43 - CONCLUSION: No underlying mass. No large/increasing hemorrhage or midline shift. Chronic right parietal cortical infarct and chronic bilateral white matter changes again noted. Ruiz Reese MD Objective Remarks GENERAL: Alert, NAD. SKIN: Warm and dry. HEAD: Normocephalic. EYES: No scleral icterus. No injection or drainage. NECK: Supple, trachea midline. No JVD or lymphadenopathy. CARDIOVASCULAR: Regular rate and rhythm without murmurs, gallops, or rubs. RESPIRATORY: Breath sounds equal bilaterally. No accessory muscle use. GASTROINTESTINAL: Abdomen soft, non-tender, nondistended. MUSCULOSKELETAL: No cyanosis, or edema. BACK: Nontender without obvious deformity. No CVA tenderness. Procedures 08/19/2017 EEG Significantly improved right-sided periodic lateralized epileptiform discharges, with minimal brief episodes low voltage and asymmetric right posterior hemispheric slowing, consistent with a structural lesion with also sleep state. Clinical correlation. A/P Problem List: (1) Cerebral parenchymal hemorrhage ICD Code: I61.9 - Nontraumatic intracerebral hemorrhage, unspecified Status: Acute (2) HTN (hypertension) ICD Code: I10 - Essential (primary) hypertension Status: Chronic (3) Seizures ICD Code: R56.9 - Unspecified convulsions Status: Chronic Assessment and Plan 67 Y/O male with: Acute ICH: with hx of CVA Jun 2017 with residual left sided weakness. - Head CT shows 4 mm area of increased attenuation in the right posterior parietal cortex most consistent with a punctate area of parenchymal hemorrhage; this was not seen on patient's previous examinations; no significant mass effect associated with this -MRI brain with no large/ increasing hemorrhage. -Echo 07/04/17 with systolic function low normal EF 50%, Holter 07/02/17 unremarkable with sinus rhythm, Head/Neck CTA 07/05 unremarkable -neurosurgery recommended no surgical intervention. -no interventions at this time; will continue with antiepileptics. -Neurology following and titrating seizure medications. -Neuro checks, Seizure precautions, Monitor on telemetry -PT/OT Seizures post stroke: - EEG from 08/19/2017 show significant improvement. -seizure precautions -Continue valproic acid, Dilantin, phenobarbital. Fall: mechanical trip and fall. Patient reports he tripped over cardboard box in his apartment. Patient has cane and walker at home. -likely contributed to ICH as above -CPK wnl -PT Hypertensive Urgency with Accelerated Hypertension: BP elevated to 204/88 in the ED. S/p IV Hydralazine 10mg x1. -Continue patient's home medications including nifedipine, hydralazine, metoprolol -Increase Nifedipine to 90mg Qday. Hydralazine 50mg TID. -Changed Metoprolol to Labetalol 200mg BID. -Blood pressure improved to 120-130s systolic. COPD: chronic, stable, does not appear to be in exacerbation -continue DuoNeb prn Dementia Agitation Hallucination -Appreciate psychiatry input. -Continue Risperdal and Haldol PRN. Full code. DVT Prophylaxis: teds/scds; holding chemoprophylaxis with ICH as above Discharge plan: Likely discharge today. Problem Qualifiers (1) Cerebral parenchymal hemorrhage: Qualified Codes: I61.8 - Other nontraumatic intracerebral hemorrhage (2) HTN (hypertension): Qualified Codes: I10 - Essential (primary) hypertension Jefferson Riley DO Aug 22, 2017 2:25 pm
--- NOTE | 2017-08-23 07:49 | HHI.DS ---
Discharge Summary Admission Date Aug 14, 2017 at 4:56 pm Discharge Date: Aug 22, 2017 Admitting Diagnosis (1) Cerebral parenchymal hemorrhage ICD Code: I61.9 - Nontraumatic intracerebral hemorrhage, unspecified Status: Acute (2) HTN (hypertension) ICD Code: I10 - Essential (primary) hypertension Status: Chronic (3) Seizures ICD Code: R56.9 - Unspecified convulsions Status: Chronic Procedures 08/19/2017 EEG Significantly improved right-sided periodic lateralized epileptiform discharges, with minimal brief episodes low voltage and asymmetric right posterior hemispheric slowing, consistent with a structural lesion with also sleep state. Clinical correlation. Brief History - From Admission 67-year-old male with history of CVA with left-sided residual weakness, seizure , hypertension, COPD, dementia, presents with worsening left upper extremity twitching and weakness. The patient was recently diagnosed with seizure secondary to acute stroke on 07/04/17, discharged 07/06, then readmitted to psych -07/27, discharged to [facility]. The patient states he was discharged from [facility] he believes on Friday 08/11. He has been having ongoing twitching of the left hand with associated weakness, which he believes his worse than his baseline. He states 1-2 days ago he fell after he tripped over a cardboard box in his apartment. He believes he hit his head because he broke his eyeglasses. He denies any loss of consciousness, tongue biting, or urinary incontinence at the time. He states he just tripped and fell. He denies any headache, lightheadedness, dizziness, chest pain, palpitations, shortness of breath, or abdominal complaints. He reports compliance with his medications. He takes baby aspirin daily. He also takes naproxen prn for pain and has been on this for over a year. He has [facility] nurse visiting him. He states on Saturday 08/12 his blood pressure was high around 190s, however yesterday it improved to 120s. He has been ambulating at home with a cane, but does also have a walker available. He lives alone in his apartment but his sister lives across the street. Upon arrival to the ED, head CT revealed 4 mm area of increased attenuation in the right posterior parietal cortex most consistent with a punctate area of parenchymal hemorrhage; this was not seen on patient's previous examinations; no significant mass effect associated with this; recommended brain MRI. CBC/BMP: 08/20/17 0733 08/20/17 0733 Significant Findings Laboratory Tests Test 08/21/17 04:05 08/22/17 08:28 Phenobarbital Level 8.9 MCG/ML (15.0-40.0) 10.3 MCG/ML (15.0-40.0) Valproic Acid (Depakene) Level 46 MCG/ML (50-100) Imaging Last Impressions Chest X-Ray 08/14/17 1223 Signed Impressions: Service Date/Time: Monday, August 14, 2017 12:47 - CONCLUSION: No acute disease. Natan Mitchell MD Head CT 08/14/17 0000 Signed Impressions: Service Date/Time: Monday, August 14, 2017 13:50 - CONCLUSION: 1. 4 mm area of increased attenuation in the right posterior parietal cortex most consistent with a punctate area of parenchymal hemorrhage. This was not seen on patient's previous examinations. There is no significant mass effect associated with this. MRI imaging of the brain with contrast would be of benefit for further assessment to ensure there is no underlying lesion. Jevon Osborne MD Brain MRI 08/14/17 0000 Signed Impressions: Service Date/Time: Monday, August 14, 2017 17:43 - CONCLUSION: No underlying mass. No large/increasing hemorrhage or midline shift. Chronic right parietal cortical infarct and chronic bilateral white matter changes again noted. Ruiz Reese MD PE at Discharge GENERAL: Alert, NAD. SKIN: Warm and dry. HEAD: Normocephalic. EYES: No scleral icterus. No injection or drainage. NECK: Supple, trachea midline. No JVD or lymphadenopathy. CARDIOVASCULAR: Regular rate and rhythm without murmurs, gallops, or rubs. RESPIRATORY: Breath sounds equal bilaterally. No accessory muscle use. GASTROINTESTINAL: Abdomen soft, non-tender, nondistended. MUSCULOSKELETAL: No cyanosis, or edema. BACK: Nontender without obvious deformity. No CVA tenderness. Pt update on day of discharge Patient is currently doing well. No chest pain, shortness of breath, fever or chills. Hospital Course On 08/14/2017, Mr. Diaz, a 67-year-old male with history of CVA with left- sided residual weakness, seizure, hypertension, COPD, dementia, presents with worsening left upper extremity twitching and weakness. The patient was recently diagnosed with seizure secondary to acute stroke on 07/04/17, discharged 07/06, then readmitted to [facility] 07/11-07/27, discharged to [facility]. Patient was [facility]. 1-2 days before this admission he reports tripping over a cardboard box in his apartment. He broke his eyeglasses and hit his head. Upon arrival to the ED, head CT revealed 4 mm area of increased attenuation in the right posterior parietal cortex most consistent with a punctate area of parenchymal hemorrhage Acute ICH: with hx of CVA Jun 2017 with residual left sided weakness. - Head CT shows 4 mm area of increased attenuation in the right posterior parietal cortex most consistent with a punctate area of parenchymal hemorrhage; this was not seen on patient's previous examinations; no significant mass effect associated with this -MRI brain with no large/ increasing hemorrhage. -Echo 07/04/17 with systolic function low normal EF 50%, Holter 07/02/17 unremarkable with sinus rhythm, Head/Neck CTA 07/05 unremarkable -neurosurgery recommended no surgical intervention. -no interventions at this time; will continue with antiepileptics. -Neurology following and titrating seizure medications. -Neuro checks, Seizure precautions, Monitor on telemetry -PT/OT Seizures post stroke: - EEG from 08/19/2017 show significant improvement. -seizure precautions -Continue valproic acid, Dilantin, phenobarbital. Fall: mechanical trip and fall. Patient reports he tripped over cardboard box in his apartment. Patient has cane and walker at home. -likely contributed to ICH as above -CPK wnl -PT Hypertensive Urgency with Accelerated Hypertension: BP elevated to 204/88 in the ED. S/p IV Hydralazine 10mg x1. -Continue patient's home medications including nifedipine, hydralazine, metoprolol -Increase Nifedipine to 90mg Qday. Hydralazine 50mg TID. -Changed Metoprolol to Labetalol 200mg BID. -Blood pressure improved to 120-130s systolic. COPD: chronic, stable, does not appear to be in exacerbation -continue DuoNeb prn Dementia Agitation Hallucination -Appreciate psychiatry input. -Continue Risperdal and Haldol PRN. Pt Condition on Discharge: Good Discharge Disposition: Discharge to SNF Discharge Time: > 30 minutes Discharge Instructions DIET: Follow Instructions for: Heart Healthy Diet Activities you can perform: Regular-No Restrictions New Medications: Phenobarbital (Phenobarbital) 97.2 Mg Tab 97.2 MG PO BID for Control Seizures, #60 TAB 0 Refills Valproic Acid (Valproic Acid) 250 Mg Cap 500 MG PO TID for Seizure Control, #90 CAP 0 Refills Hydralazine HCl (Hydralazine HCl) 25 Mg Tablet 50 MG PO TID for Blood Pressure Management, #90 TAB Labetalol (Labetalol) 200 Mg Tab 200 MG PO Q12HR for Blood Pressure Management, #60 TAB Nifedipine (Nifedipine ER) 90 Mg Tab 90 MG PO DAILY for Blood Pressure Management, #30 TAB Phenytoin Extended (Dilantin) 100 Mg Cap 100 MG PO TID for Seizure Control, #90 CAP Phenytoin Extended (Dilantin) 30 Mg Cap 30 MG PO TID for Seizure Control, #90 CAP Risperidone (Risperdal) 1 Mg Tab 2 MG PO BID for Agitation, #60 TAB Continued Medications: Acetaminophen (Tylenol) 325 Mg Tab 650 MG PO Q4H PRN for PAIN/TEMP 100 OR ABOVE, TAB 0 Refills Atorvastatin (Atorvastatin) 20 Mg Tab 20 MG PO HS for Stroke Prevention, #30 TAB 0 Refills Folic Acid (Folic Acid) 1 Mg Tablet 1 MG PO DAILY for Alcohol Detox, #30 MG 0 Refills Multiple Vitamins W/ Minerals (Thera M Plus) 1 Tab 1 TAB PO DAILY for Alcohol Detox, #30 TAB 0 Refills Thiamine HCl (Gnp Vitamin B-1) 100 Mg Tab 100 MG PO DAILY for Alcohol Detox, #30 TAB 0 Refills Discontinued Medications: Aspirin DR (Aspirin DR) 81 Mg Tabdr 81 MG PO DAILY for Stroke Prevention, #30 TAB 0 Refills Hydralazine HCl (Hydralazine HCl) 25 Mg Tablet 25 MG PO Q12HR for Blood Pressure Management, #60 TAB 0 Refills Levetiracetam (Keppra) 500 Mg Tab 500 MG PO BID for Seizure Control, #60 TAB 0 Refills Metoprolol Tartrate (Lopressor) 50 Mg Tab 50 MG PO Q12HR for Blood Pressure Management, #60 TAB 0 Refills Nifedipine ER 24 HR (Nifedipine ER 24 HR) 30 Mg Tab 30 MG PO DAILY for Blood Pressure Management, #30 TAB 0 Refills Quetiapine (Seroquel) 25 Mg Tab 25 MG PO TID@0800,1300,1900 for health, #90 TAB 0 Refills Risperidone (Risperdal) 1 Mg Tab 1 MG PO HS for health, #30 TAB 0 Refills Jefferson Riley DO Aug 23, 2017 07:48
== END 2017-08-22 15:17 | DRG 83 ==
LOC: NEPC 10:08 → NEDA 16:56 → N05A 20:13
PROVIDERS: ADMIT Hospitalist; ATTEND Hospitalist
DX: S06.319A Contusion and laceration of right cerebrum with loss of consciousness of unspecified duration, initial encounter (principal); F01.51 Vascular dementia, unspecified severity, with behavioral disturbance; I69.354 Hemiplegia and hemiparesis following cerebral infarction affecting left non-dominant side; R56.9 Unspecified convulsions; I16.0 Hypertensive urgency; J44.9 Chronic obstructive pulmonary disease, unspecified; I10 Essential (primary) hypertension; Z79.82 Long term (current) use of aspirin; R25.1 Tremor, unspecified; W01.0XXA Fall on same level from slipping, tripping and stumbling without subsequent striking against object, initial encounter; Z87.891 Personal history of nicotine dependence; Z78.1 Physical restraint status
CPT/HCPCS: 70450; 70553; 71045; 80048; 80053; 80076; 80164; 80177; 80184; 80185; 80307; 81001; 82140; 82550; 83735; 84443; 84484; 85007; 85025; 85027; 85610; 93005; 95819; 96361; 96374; A9579; J0360; J1630; J2060; J2560; J7040; Q2009